=== PATIENT | female | born 1960 | race Caucasian/White ===

== ENCOUNTER 2017-12-29 21:24 | Emergency (ER) | payer MEDICAID ==
[2017-12-29 22:52] VITALS: BP 115/79
--- NOTE | 2017-12-29 23:43 | EDM.PDOC ---
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: Other (see below) Other Treatments INSIDE TRUCKER: Unknown Chest Pain Score (Numeric/FACES): 4 - Related Data Allergies Allergy/AdvReac Type Severity Reaction Status Date / Time erythromycin lactobionate Allergy Severe Anaphylactic Verified 12/29/17 22:52 [From Erythrocin] Shock azithromycin [From Zithromax] Allergy Anaphylactic Verified 12/29/17 22:52 Shock clindamycin Allergy Anaphylactic Verified 12/29/17 22:52 Shock doxycycline Allergy Anaphylactic Verified 12/29/17 22:52 Shock levofloxacin [From Levaquin] Allergy Anaphylactic Verified 12/29/17 22:52 Shock Penicillins Allergy Anaphylactic Verified 12/29/17 22:52 Shock varenicline tartrate Allergy Swelling Verified 12/29/17 22:52 [From Chantix] Home Meds: Home Meds Albuterol [Ventolin HFA] 2 puff INH Q4H PRN 07/01/14 [History] Albuterol/Ipratropium [DuoNeb 3.0-0.5 MG/3 ML] 1 dose INH ASDIRECTED 10/02/14 [ History] Past Medical History Respiratory History: Reports: COPD Psychiatric History: Reports: Emotional Problems, Psych Hospitalization(s) - Past Surgical History Other HEENT Surgeries/Procedures: broken nose Social & Family History - Tobacco Use Smoking Status *Q: Heavy Tobacco Smoker Years of Tobacco use: 38 Packs/Tins Daily: 1 - Recreational Drug Use Recreational Drug Use: No ED ROS GENERAL - Review of Systems Review Of Systems: See Below Constitutional: Denies: Fever, Chills HEENT: Reports: No Symptoms Respiratory: Reports: Shortness of Breath, Cough, Sputum. Denies: Wheezing Cardiovascular: Reports: Dyspnea on Exertion GI/Abdominal: Reports: No Symptoms : Reports: No Symptoms ED EXAM, GENERAL - Physical Exam Exam: See Below Exam Limited By: No Limitations General Appearance: Alert, WD/WN, No Apparent Distress Neck: Normal Inspection, Supple, Non-Tender, Full Range of Motion Respiratory/Chest: No Respiratory Distress, No Accessory Muscle Use, Decreased Breath Sounds. No: Crackles, Wheezing Cardiovascular: Regular Rate, Rhythm, No Murmur Course - Vital Signs Last Recorded V/S: Last Vital Signs Temp 98.1 F 12/29/17 22:47 Pulse 95 12/29/17 22:47 Resp 18 12/29/17 22:47 BP 115/79 12/29/17 22:47 Pulse Ox 96 12/29/17 22:47 Departure - Departure Time of Disposition: 23:42 Disposition: Home, Self-Care 01 Condition: Fair Clinical Impression: Bronchitis COPD (chronic obstructive pulmonary disease) Qualifiers: COPD type: chronic bronchitis Chronic bronchitis type: simple Qualified Code(s) : J41.0 - Simple chronic bronchitis - Discharge Information Referrals: Mariam Mojica PA [Primary Care Provider] - Additional Instructions: Take full course of antibiotics, continue to use your dual nebs as required, take full course of steroids, start the Spiriva recommend trying for 28 days to see if there is any improvement in breathing, follow-up with your primary care in the next 5-7 days for reevaluation - Assessment/Plan Plan: Assessment Acuity = acute Site and laterality = bronchitis complicated in a patient with known history of chronic obstructive pulmonary disease Etiology = probable underlying bacterial cause Manifestations = dyspnea Location of injury = Home Lab values = none Plan I did offer further evaluation with lab work and chest x-ray she declined therefore were disconnected treat empirically doxycycline 100 mg by mouth twice a day 10 days with prednisone 20 mg once a day for 5 days a prescription was also written for Spiriva HandiHaler 2 puffs daily she will follow-up with her primary care in the next 5-7 days for reevaluation This note was dictated using [employer] voice recognition software please call with any questions on syntax or grammar.
== END 2017-12-29 23:54 | disposition home or self-care (01) ==
LOC: JP.ED 21:24
DX: J41.0 Simple chronic bronchitis (principal); F17.210 Nicotine dependence, cigarettes, uncomplicated; Z88.0 Allergy status to penicillin; Z88.8 Allergy status to other drugs, medicaments and biological substances; Z88.1 Allergy status to other antibiotic agents
CPT/HCPCS: 99283

== ENCOUNTER 2018-01-19 18:00 | Emergency (ER) | payer MEDICAID ==
[2018-01-19 18:17] VITALS: BP 124/85
[2018-01-19] MEDS ORDERED: Ketorolac 60 MG/2 ML SDV IM ONE (18:27)
[2018-01-19] MEDS ORDERED: HYDROmorphone 0.5 MG/0.5 ML Syringe IM ONE (19:08)
--- NOTE | 2018-01-19 20:02 | EDM.PDOC ---
ED HPI GENERAL MEDICAL PROBLEM - General Chief Complaint: Lower Extremity Injury/Pain Stated Complaint: BREAKING UP DOG FIGHT, NOW HAVING HIP PAIN Time Seen by Provider: 01/19/18 18:20 Source of Information: Reports: Patient History Limitations: Reports: No Limitations - History of Present Illness INITIAL COMMENTS - FREE TEXT/NARRATIVE: pt arrived with pain in the rt buttock area and down the back of the butt and into the groin. She was trying to break up a dog fight and she suddenly felt pain in the rt buttock area and going down the back of the rt buttock. Onset: Today Duration: Hour(s): Location: Reports: Back, Pelvis, Lower Extremity, Right Associated Symptoms: Reports: No Other Symptoms Right Hip Pain Score (Numeric/FACES): 6 - Related Data Allergies Allergy/AdvReac Type Severity Reaction Status Date / Time erythromycin lactobionate Allergy Severe Anaphylactic Verified 12/29/17 22:52 [From Erythrocin] Shock azithromycin [From Zithromax] Allergy Anaphylactic Verified 12/29/17 22:52 Shock clindamycin Allergy Anaphylactic Verified 12/29/17 22:52 Shock doxycycline Allergy Anaphylactic Verified 12/29/17 22:52 Shock levofloxacin [From Levaquin] Allergy Anaphylactic Verified 12/29/17 22:52 Shock Penicillins Allergy Anaphylactic Verified 12/29/17 22:52 Shock varenicline tartrate Allergy Swelling Verified 12/29/17 22:52 [From Chantix] Home Meds: Home Meds Albuterol [Ventolin HFA] 2 puff INH Q4H PRN 07/01/14 [History] Albuterol/Ipratropium [DuoNeb 3.0-0.5 MG/3 ML] 1 dose INH ASDIRECTED 10/02/14 [ History] Past Medical History Respiratory History: Reports: COPD, Pneumonia, Recurrent Psychiatric History: Reports: Emotional Problems, Psych Hospitalization(s) - Infectious Disease History Infectious Disease History: Reports: Chicken Pox, Measles, Mumps - Past Surgical History Other HEENT Surgeries/Procedures: broken nose Musculoskeletal Surgical History: Reports: Arthroscopic Knee Social & Family History - Tobacco Use Smoking Status *Q: Current Every Day Smoker Years of Tobacco use: 40 Packs/Tins Daily: 1 - Caffeine Use Caffeine Use: Reports: Soda, Tea - Recreational Drug Use Recreational Drug Use: No Review of Systems - Review of Systems Review Of Systems: See Below Constitutional: Reports: No Symptoms Eyes: Reports: No Symptoms Ears: Reports: No Symptoms Nose: Reports: No Symptoms Mouth/Throat: Reports: No Symptoms Respiratory: Reports: No Symptoms Cardiovascular: Reports: No Symptoms GI/Abdominal: Reports: No Symptoms Genitourinary: Reports: No Symptoms Musculoskeletal: Reports: Other ( pain over the rt buttock and pain in the rt groin area. ) Skin: Reports: No Symptoms, Other (pt has diog bites all over her arms particularly the left. ) Neurological: Reports: No Symptoms ED EXAM, GENERAL - Physical Exam Exam: See Below Free Text/Narrative:: Pt arrived with pain in the rt buttock area and pain going down the back of the leg. She also has pain in the rt groin. Exam Limited By: No Limitations General Appearance: Alert, Anxious, Moderate Distress Ears: Normal TMs Nose: Normal Inspection Throat/Mouth: Normal Inspection Head: Atraumatic Neck: Normal Inspection Respiratory/Chest: No Respiratory Distress Cardiovascular: Regular Rate, Rhythm GI/Abdominal: Soft, Non-Tender (Female) Exam: Deferred Rectal (Female) Exam: Deferred Back Exam: Other (pain over the rt buttock area and pain going down the back of the leg. ) Neurological: Alert, Oriented, Normal Cognition Course - Vital Signs Last Recorded V/S: Last Vital Signs Temp 35.2 C 01/19/18 18:16 Pulse 112 H 01/19/18 18:16 Resp 18 01/19/18 18:16 BP 124/85 01/19/18 18:16 Pulse Ox 98 01/19/18 18:16 - Orders/Labs/Meds Orders: Active Orders 24 hr Category Date Time Status Hip Min 1V w Pelvis Rt [CR] Stat Exams 01/19/18 18:29 Taken Lumbar Spine Min 4V [CR] Stat Exams 01/19/18 18:28 Taken Cephalexin [Keflex] Med 01/19/18 20:05 Once 500 mg PO ONETIME ONE Meds: Medications Discontinued Medications Generic Name Dose Route Start Last Admin Trade Name Freq PRN Reason Stop Dose Admin Cephalexin 500 mg 01/19/18 20:05 Keflex PO 01/19/18 20:06 ONETIME ONE Hydromorphone HCl 0.5 mg 01/19/18 19:08 07/12/18 19:18 Dilaudid IM 01/19/18 19:09 0.5 mg ONETIME ONE Administration Ketorolac Tromethamine 60 mg 01/19/18 18:27 01/19/18 18:53 Toradol IM 01/19/18 18:28 60 mg ONETIME ONE Administration - Re-Assessments/Exams Free Text/Narrative Re-Assessment/Exam: 01/19/18 20:14 Xrays of the lumbar spine show narrowing at l5-s1. She appears to have sciatic like pain. She had a normal pelvis. She was fgiven torodol 60mg im and dilaudid .5 im Departure - Departure Time of Disposition: 19:59 Disposition: Home, Self-Care 01 Condition: Fair Clinical Impression: Sciatic nerve pain, Rt groin pain - Discharge Information Referrals: Mariam Mojica PA [Primary Care Provider] - Forms: ED Department Discharge Care Plan Goals: ice to rt groin and rt buttock, use a walker if need to ambulate., norco 5/325- - free for tonight a perscprtion to fill tomorrow for norco and keflex. - My Orders Last 24 Hours: My Active Orders 01/19/18 18:28 Lumbar Spine Min 4V [CR] Stat 01/19/18 18:29 Hip Min 1V w Pelvis Rt [CR] Stat 01/19/18 20:05 Cephalexin [Keflex] 500 mg PO ONETIME ONE - Assessment/Plan Last 24 Hours: My Active Orders 01/19/18 18:28 Lumbar Spine Min 4V [CR] Stat 01/19/18 18:29 Hip Min 1V w Pelvis Rt [CR] Stat 01/19/18 20:05 Cephalexin [Keflex] 500 mg PO ONETIME ONE
[2018-01-19] MEDS ORDERED: Cephalexin 250 MG Cap PO ONE (20:05)
--- NOTE | 2018-01-20 08:37 | CR ---
Lumbar Spine Min 4V CLINICAL HISTORY: Right groin pain FINDINGS: The vertebral body heights are maintained. There is disc space narrowing at L5-S1. There is a minimal anterolisthesis of L5 on S1. There is some facet disease in the lower lumbar spine. IMPRESSION: Degenerative disc changes at L5-S1 with some minimal L5 anterolisthesis Osteoarthropathy in the lower lumbar facets
--- NOTE | 2018-01-20 08:40 | CR ---
Hip Min 1V w Pelvis Rt CLINICAL HISTORY: Right groin pain FINDINGS: No acute fracture or dislocation is noted. No destructive changes are present. The joint sp aces are well-maintained. Impression: No fracture or osseous lesion
== END 2018-01-19 20:27 | disposition home or self-care (01) ==
LOC: JP.ED 18:00
DX: M54.31 Sciatica, right side (principal); J44.9 Chronic obstructive pulmonary disease, unspecified; F17.210 Nicotine dependence, cigarettes, uncomplicated; Z88.1 Allergy status to other antibiotic agents; Z88.0 Allergy status to penicillin; Z88.8 Allergy status to other drugs, medicaments and biological substances
CPT/HCPCS: 72110; 73501; 96372; 99284; A9270; J1170; J1885

== ENCOUNTER 2018-01-24 13:28 | Emergency (ER) | payer MEDICAID ==
[2018-01-24 14:32] VITALS: BP 133/80
--- NOTE | 2018-01-24 15:33 | EDM.PDOC ---
ED HPI GENERAL MEDICAL PROBLEM - General Chief Complaint: Lower Extremity Injury/Pain Stated Complaint: RT SIDE HIP/LEG PAIN (SCIATIC?) Time Seen by Provider: 01/24/18 15:10 Source of Information: Reports: Patient, Old Records, RN History Limitations: Reports: No Limitations - History of Present Illness INITIAL COMMENTS - FREE TEXT/NARRATIVE: 57 yo female presents with groin pain that began last week when she tried to split up her dogs that were fighting. Was seen after that incident here by Dr. Burgos. Was given hydrocodone that did not help her pain but caused nausea. No relief with ibuprofen. Has a walker/crutches at home. 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 below) (none) Right Groin Pain Score (Numeric/FACES): 10 - Related Data Allergies Allergy/AdvReac Type Severity Reaction Status Date / Time erythromycin lactobionate Allergy Severe Anaphylactic Verified 01/24/18 14:42 [From Erythrocin] Shock azithromycin [From Zithromax] Allergy Anaphylactic Verified 01/24/18 14:42 Shock clindamycin Allergy Anaphylactic Verified 01/24/18 14:42 Shock doxycycline Allergy Anaphylactic Verified 01/24/18 14:42 Shock levofloxacin [From Levaquin] Allergy Anaphylactic Verified 01/24/18 14:42 Shock Penicillins Allergy Anaphylactic Verified 01/24/18 14:42 Shock varenicline tartrate Allergy Swelling Verified 01/24/18 14:42 [From Chantix] Home Meds: Home Meds Albuterol [Ventolin HFA] 2 puff INH Q4H PRN 07/01/14 [History] Albuterol/Ipratropium [DuoNeb 3.0-0.5 MG/3 ML] 1 dose INH ASDIRECTED 10/02/14 [ History] traMADol [Ultram] 50 - 100 mg PO Q6H PRN #20 tab 01/24/18 [Rx] Past Medical History Respiratory History: Reports: COPD, Pneumonia, Recurrent Psychiatric History: Reports: Emotional Problems, Psych Hospitalization(s) - Infectious Disease History Infectious Disease History: Reports: Chicken Pox, Measles, Mumps - Past Surgical History Other HEENT Surgeries/Procedures: broken nose Musculoskeletal Surgical History: Reports: Arthroscopic Knee Social & Family History - Tobacco Use Smoking Status *Q: Current Every Day Smoker Years of Tobacco use: 40 Packs/Tins Daily: 1 - Caffeine Use Caffeine Use: Reports: Coffee, Soda - Recreational Drug Use Recreational Drug Use: No Review of Systems - Review of Systems Review Of Systems: See Below Constitutional: Reports: No Symptoms Musculoskeletal: Reports: Leg Pain (R groin) Skin: Reports: No Symptoms Neurological: Reports: No Symptoms ED EXAM, GENERAL - Physical Exam Exam: See Below Exam Limited By: No Limitations General Appearance: Alert, WD/WN, No Apparent Distress Extremities: Normal Inspection, No Pedal Edema, Leg Pain (ischial tuberosity pain). No: Non-Tender Neurological: Alert, Oriented, CN II-XII Intact, Normal Cognition, No Motor/ Sensory Deficits Psychiatric: Normal Affect, Normal Mood Skin Exam: Warm, Dry, Intact, Normal Color, No Rash Lymphatic: No Adenopathy Course - Vital Signs Last Recorded V/S: Last Vital Signs Temp 36.3 C 01/24/18 14:37 Pulse 91 01/24/18 14:37 Resp 14 01/24/18 14:37 BP 133/80 01/24/18 14:37 Pulse Ox 96 01/24/18 14:37 - Orders/Labs/Meds Orders: Active Orders 24 hr Category Date Time Status Pelvis Min 3V [CR] Stat Exams 01/24/18 14:56 Taken - Radiology Interpretation Free Text/Narrative:: pelvix x-ray-neg Departure - Departure Time of Disposition: 15:31 Disposition: Home, Self-Care 01 Condition: Good Clinical Impression: Groin strain Qualifiers: Encounter type: subsequent encounter Laterality: right Qualified Code(s): S76.211D - Strain of adductor muscle, fascia and tendon of right thigh, subsequent encounter - Discharge Information *PRESCRIPTION DRUG MONITORING PROGRAM REVIEWED*: No *COPY OF PRESCRIPTION DRUG MONITORING REPORT IN PATIENT DANIKA: No Prescriptions: traMADol [Ultram] 50 - 100 mg PO Q6H PRN #20 tab PRN Reason: Pain Referrals: Mariam Mojica PA [Primary Care Provider] - Additional Instructions: If acetaminophen AND ibuprofen together do not give enough relief of your pain then add tramadol and use as directed. Activity as tolerated. Consider PT or massage therapy. See your primary care provider for med adjustments. - My Orders Last 24 Hours: My Active Orders 01/24/18 14:56 Pelvis Min 3V [CR] Stat - Assessment/Plan Last 24 Hours: My Active Orders 01/24/18 14:56 Pelvis Min 3V [CR] Stat
--- NOTE | 2018-01-25 08:44 | CR ---
[facility] Clinical History: Groin pain, fall Findings: No acute fracture or dislocation is noted. No destructive changes are present.There is qu estion of minimal widening of the pubic symphysis. This may be chronic. Joint spaces are well-maintai silvana. There are degenerative changes in the lower lumbar spine Impression: No fracture seen
== END 2018-01-24 15:43 | disposition home or self-care (01) ==
LOC: JP.ED 13:28
DX: S76.211D Strain of adductor muscle, fascia and tendon of right thigh, subsequent encounter (principal); Z88.1 Allergy status to other antibiotic agents; Z88.0 Allergy status to penicillin; F17.210 Nicotine dependence, cigarettes, uncomplicated; X58.XXXD Exposure to other specified factors, subsequent encounter
CPT/HCPCS: 72190; 72190-26; 99284

== ENCOUNTER 2019-01-30 00:41 | Emergency (ER) | payer MEDICAID ==
[2019-01-30 00:53] VITALS: BP 120/63
[2019-01-30 01:05] VITALS: PULSE 104
--- NOTE | 2019-01-30 01:43 | EDM.PDOC ---
ED HPI GENERAL MEDICAL PROBLEM - General Chief Complaint: ENT Problem Stated Complaint: TOOTHACHE Time Seen by Provider: 01/30/19 01:20 Source of Information: Reports: Patient, Family, Old Records, RN Notes Reviewed History Limitations: Reports: No Limitations - History of Present Illness INITIAL COMMENTS - FREE TEXT/NARRATIVE: 58-year-old female presents emergency department today complaint of dental pain and facial swelling she states been going on for the last couple days she is not had any fevers at home she would like some antibiotics however she has multiple allergies to every class of medications difficult finding a medication she is not allergic to right lower Pain Score (Numeric/FACES): 8 - Related Data Allergies Allergy/AdvReac Type Severity Reaction Status Date / Time erythromycin lactobionate Allergy Severe Anaphylactic Verified 01/30/19 00:58 [From Erythrocin] Shock amitriptyline Allergy Anaphylactic Verified 01/30/19 00:58 Shock azithromycin [From Zithromax] Allergy Anaphylactic Verified 01/30/19 00:58 Shock clindamycin Allergy Anaphylactic Verified 01/30/19 00:58 Shock doxycycline Allergy Anaphylactic Verified 01/30/19 00:58 Shock levofloxacin [From Levaquin] Allergy Anaphylactic Verified 01/30/19 00:58 Shock Penicillins Allergy Anaphylactic Verified 01/30/19 00:58 Shock prednisone Allergy Anaphylactic Verified 01/30/19 00:58 Shock varenicline tartrate Allergy Swelling Verified 01/30/19 00:58 [From Chantix] Home Meds: Home Meds Albuterol [Ventolin HFA] 2 puff INH Q4H PRN 07/01/14 [History] Albuterol/Ipratropium [DuoNeb 3.0-0.5 MG/3 ML] 1 dose INH QID 10/02/14 [History] Alendronate Sodium [Fosamax] 70 mg PO WEEKLY 01/30/19 [History] Fluticasone/Vilanterol [Breo Ellipta 100-25 MCG Inhalation Kit] 1 each IH DAILY 01/30/19 [History] Gabapentin [Neurontin] 600 mg PO BEDTIME PRN 01/30/19 [History] Tiotropium Benedict [Spiriva Respimat] 2 puff IH DAILY 01/30/19 [History] Past Medical History Respiratory History: Reports: COPD, Pneumonia, Recurrent 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: , Spontaneous Musculoskeletal History: Reports: Fracture, Osteoporosis Neurological History: Reports: Seizure Psychiatric History: Reports: Anxiety, Depression, Emotional Problems, Psych Hospitalization(s) Endocrine/Metabolic History: Reports: Vitamin D Deficiency - Infectious Disease History Infectious Disease History: Reports: Chicken Pox, Measles, Mumps - Past Surgical History HEENT Surgical History: Reports: Naso-Sinus Surgery Other HEENT Surgeries/Procedures: broken nose Musculoskeletal Surgical History: Reports: Arthroscopic Knee Social & Family History - Tobacco Use Smoking Status *Q: Current Every Day Smoker Years of Tobacco use: 40 Packs/Tins Daily: 0.5 - Caffeine Use Caffeine Use: Reports: Soda - Recreational Drug Use Recreational Drug Use: No ED ROS GENERAL - Review of Systems Review Of Systems: See Below Constitutional: Denies: Fever HEENT: Reports: Dental Pain Respiratory: Reports: No Symptoms Cardiovascular: Reports: No Symptoms ED EXAM, GENERAL - Physical Exam Exam: See Below Free Text/Narrative:: Mouth mucosa is moist and pink however there is some edema appreciated on the lower gum dentition is poor multiple dental caries and missing teeth there is some facial swelling as well predominantly right side tender to the touch Exam Limited By: No Limitations General Appearance: Alert, WD/WN, No Apparent Distress Neck: Normal Inspection, Supple, Non-Tender, Full Range of Motion Respiratory/Chest: No Respiratory Distress Course - Vital Signs Last Recorded V/S: Last Vital Signs Temp 95.2 F L 01/30/19 01:04 Pulse 104 H 01/30/19 01:05 Resp 18 01/30/19 01:04 BP 120/63 01/30/19 01:04 Pulse Ox 93 L 01/30/19 01:05 Departure - Departure Time of Disposition: 01:42 Disposition: Home, Self-Care 01 Condition: Poor Clinical Impression: Dental abscess - Discharge Information Referrals: Luci Robles MD [Primary Care Provider] - Additional Instructions: Take full course of antibiotics, use EpiPen if needed, recommend follow-up with cement tester assistant for further evaluation multiple allergies, call return to the emergency department worsening of symptoms - Assessment/Plan Plan: Assessment Acuity = acute Site and laterality = dental abscess Etiology = probable bacterial cause] Manifestations = none Location of injury = Home Lab values = none Plan She is willing to try doxycycline 100 mg by mouth twice a day 7 days prescription also written for an EpiPen recommend she follow-up with an cement tester assistant to review her multiple allergies This note was dictated using [employer] voice recognition software please call with any questions on syntax or grammar.
== END 2019-01-30 01:50 | disposition home or self-care (01) ==
LOC: JP.ED 00:41
DX: K04.7 Periapical abscess without sinus (principal); J44.9 Chronic obstructive pulmonary disease, unspecified; F41.9 Anxiety disorder, unspecified; F32.9 Major depressive disorder, single episode, unspecified; F17.210 Nicotine dependence, cigarettes, uncomplicated; Z88.1 Allergy status to other antibiotic agents; Z88.8 Allergy status to other drugs, medicaments and biological substances; Z88.0 Allergy status to penicillin; Z79.899 Other long term (current) drug therapy
CPT/HCPCS: 99282

== ENCOUNTER 2019-03-29 03:25 | Emergency (ER) | payer MEDICAID ==
[2019-03-29 03:38] VITALS: BP 126/74
[2019-03-29] MEDS ORDERED: LORazepam 0.5 MG Tab PO ONE (04:24)
--- NOTE | 2019-03-29 04:28 | EDM.PDOC ---
ED HPI GENERAL MEDICAL PROBLEM - General Chief Complaint: Respiratory Problem Stated Complaint: PANIC ATTACK/COPD Time Seen by Provider: 03/29/19 04:27 Source of Information: Reports: Patient History Limitations: Reports: No Limitations - History of Present Illness INITIAL COMMENTS - FREE TEXT/NARRATIVE: pt has been going through a very emotional time. She is not connecting with her physian and she is very frighten of even seeking medical help. She has copd and is not on o2. She has times when she gets very sob. Onset: Gradual, Other (pt is very panicy and she did feel like she could not breath right. ) Duration: Hour(s): Location: Reports: Chest, Other (pt is feeling very anxious. ) Associated Symptoms: Reports: Loss of Appetite, Shortness of Breath, Weakness, Other (pt hs lost alot of weight. ) - Related Data Allergies Allergy/AdvReac Type Severity Reaction Status Date / Time erythromycin lactobionate Allergy Severe Anaphylactic Verified 03/29/19 03:42 [From Erythrocin] Shock amitriptyline Allergy Anaphylactic Verified 01/30/19 00:58 Shock azithromycin [From Zithromax] Allergy Anaphylactic Verified 03/29/19 03:42 Shock buspirone [From BuSpar] Allergy Anaphylactic Verified 03/29/19 03:42 Shock clindamycin Allergy Anaphylactic Verified 03/29/19 03:42 Shock doxycycline Allergy Anaphylactic Verified 03/29/19 03:42 Shock levofloxacin [From Levaquin] Allergy Anaphylactic Verified 03/29/19 03:42 Shock Penicillins Allergy Anaphylactic Verified 03/29/19 03:42 Shock prednisone Allergy Anaphylactic Verified 03/29/19 03:42 Shock varenicline tartrate Allergy Swelling Verified 03/29/19 03:42 [From Chantix] Home Meds: Home Meds Albuterol [Ventolin HFA] 2 puff INH Q4H PRN 07/01/14 [History] Albuterol/Ipratropium [DuoNeb 3.0-0.5 MG/3 ML] 1 dose INH QID 10/02/14 [History] Alendronate Sodium [Fosamax] 70 mg PO WEEKLY 01/30/19 [History] Fluticasone/Vilanterol [Breo Ellipta 100-25 MCG Inhalation Kit] 1 each IH DAILY 01/30/19 [History] Gabapentin [Neurontin] 600 mg PO BEDTIME PRN 01/30/19 [History] Tiotropium [place] [Spiriva Respimat] 2 puff IH DAILY 01/30/19 [History] Past Medical History Respiratory History: Reports: COPD, Pneumonia, Recurrent, SOB 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: , 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 Musculoskeletal History: Reports: Fracture, Osteoporosis Neurological History: Reports: Seizure Psychiatric History: Reports: Anxiety, Depression, Emotional Problems, Panic Attack, Psych Hospitalization(s) Endocrine/Metabolic History: Reports: Vitamin D Deficiency - Infectious Disease History Infectious Disease History: Reports: Chicken Pox - Past Surgical History HEENT Surgical History: Reports: Naso-Sinus Surgery Other HEENT Surgeries/Procedures: broken nose Musculoskeletal Surgical History: Reports: Arthroscopic Knee Social & Family History - Tobacco Use Smoking Status *Q: Current Every Day Smoker Years of Tobacco use: 30 Packs/Tins Daily: 0.5 - Caffeine Use Caffeine Use: Reports: None - Recreational Drug Use Recreational Drug Use: No ED ROS GENERAL - Review of Systems Review Of Systems: See Below Constitutional: Reports: No Symptoms HEENT: Reports: No Symptoms Respiratory: Reports: No Symptoms Cardiovascular: Reports: Dyspnea on Exertion Endocrine: Reports: No Symptoms GI/Abdominal: Reports: No Symptoms, Decreased Appetite, Other (wt loss) Musculoskeletal: Reports: Back Pain Skin: Reports: No Symptoms Neurological: Reports: Other (pt is continuously panicy. ) Psychiatric: Reports: Anxiety, Depression ED EXAM, GENERAL - Physical Exam Exam: See Below Free Text/Narrative:: pt is a very anxiou pt who is breathing rapidly , her heart rate was in the 120 range. She has not been able to get any meds to control hr anxiety. Exam Limited By: No Limitations General Appearance: Alert, Anxious, Moderate Distress Ears: Normal TMs Nose: Normal Inspection Throat/Mouth: Normal Inspection Head: Atraumatic Neck: Normal Inspection Respiratory/Chest: Decreased Breath Sounds, Wheezing, Other (her sats were in the 90 range. ) Cardiovascular: Regular Rate, Rhythm, Tachycardia GI/Abdominal: Soft, Non-Tender, Other (pt is very thin and has no tenderness. ) (Female) Exam: Deferred Rectal (Female) Exam: Deferred Back Exam: Normal Inspection Extremities: Normal Inspection Neurological: Alert, Oriented, Normal Cognition Psychiatric: Anxious, Other (panicy) Course - Vital Signs Last Recorded V/S: Last Vital Signs Temp 36.4 C 03/29/19 03:38 Pulse 110 H 03/29/19 05:43 Resp 22 H 03/29/19 05:43 BP 126/74 03/29/19 03:38 Pulse Ox 99 03/29/19 05:43 - Orders/Labs/Meds Labs: Laboratory Tests 03/29/19 03/29/19 03/29/19 Range/Units 04:00 04:23 04:39 WBC 6.8 (4.5-11.0) K/uL RBC 4.56 (3.30-5.50) M/uL Hgb 14.1 (12.0-15.0) g/dL Hct 42.3 (36.0-48.0) % MCV 93 (80-98) fL MCH 31 (27-31) pg MCHC 33 (32-36) % Plt Count 212 (150-400) K/uL Neut % (Auto) 57 (36-66) % Lymph % (Auto) 29 (24-44) % Calvert % (Auto) 12 H (2-6) % Eos % (Auto) 2 (2-4) % Baso % (Auto) 0 (0-1) % Puncture Site ABG pH (7.350-7.450) ABG pCO2 (35.0-42.0) mmHg ABG pO2 (75.0-100.0) mmHg ABG HCO3 (22.0-26.0) mmol/L ABG Total CO2 (21.0-25.0) mmol/L ABG O2 Saturation (95.0-98.0) % ABG O2 Content (15.0-23.0) %vol ABG Base Excess mm/L ABG Hemoglobin (12.0-16.0) g/dL ABG Oxyhemoglobin % ABG Carboxyhemoglobin (0.0-1.6) % ABG Methemoglobin % Henrik Test O2 Delivery Device Oxygen Flow Rate L Sodium 141 (140-148) mmol/L Potassium 3.8 (3.6-5.2) mmol/L Chloride 101 (100-108) mmol/L Carbon Dioxide 33 H (21-32) mmol/L Anion Gap 10.8 (5.0-14.0) mmol/L BUN 5 L (7-18) mg/dL Creatinine 0.7 (0.6-1.0) mg/dL Est Cr Clr Drug Dosing 47.05 mL/min Estimated GFR (MDRD) > 60 (>60) Glucose 108 H (74-106) mg/dL Calcium 8.9 (8.5-10.1) mg/dL Total Bilirubin 0.3 (0.2-1.0) mg/dL AST 18 (15-37) U/L ALT 23 (12-78) U/L Alkaline Phosphatase 78 (46-116) U/L Total Protein 6.9 (6.4-8.2) g/dL Albumin 3.8 (3.4-5.0) g/dL Globulin 3.1 (2.3-3.5) g/dL Albumin/Globulin Ratio 1.2 (1.2-2.2) Urine Color Yellow (YELLOW) Urine Appearance Clear (CLEAR) Urine pH 6.5 (5.0-8.0) Ur Specific H[place]orne 1.015 (1.008-1.030) Urine Protein Negative (NEGATIVE) mg/dL Urine Glucose (UA) Negative (NEGATIVE) mg/dL Urine Ketones Negative (NEGATIVE) mg/dL Urine Occult Blood Trace-intact H (NEGATIVE) Urine Nitrite Negative (NEGATIVE) Urine Bilirubin Negative (NEGATIVE) Urine Urobilinogen 0.2 (0.2-1.0) EU/dL Ur Leukocyte Esterase Small H (NEGATIVE) Urine RBC 5-10 H (0-5) Urine WBC 0-5 (0-5) Ur Epithelial Cells Many Amorphous Sediment Few Urine Bacteria Not seen Urine Mucus Not seen 03/29/19 Range/Units 04:58 WBC (4.5-11.0) K/uL RBC (3.30-5.50) M/uL Hgb (12.0-15.0) g/dL Hct (36.0-48.0) % MCV (80-98) fL MCH (27-31) pg MCHC (32-36) % Plt Count (150-400) K/uL Neut % (Auto) (36-66) % Lymph % (Auto) (24-44) % Calvert % (Auto) (2-6) % Eos % (Auto) (2-4) % Baso % (Auto) (0-1) % Puncture Site Rt radial ABG pH 7.382 (7.350-7.450) ABG pCO2 51.8 H (35.0-42.0) mmHg ABG pO2 79.5 (75.0-100.0) mmHg ABG HCO3 30.1 H (22.0-26.0) mmol/L ABG Total CO2 26.8 H (21.0-25.0) mmol/L ABG O2 Saturation 96.7 (95.0-98.0) % ABG O2 Content 16.7 (15.0-23.0) %vol ABG Base Excess 4.4 mm/L ABG Hemoglobin 13.5 (12.0-16.0) g/dL ABG Oxyhemoglobin 87.9 % ABG Carboxyhemoglobin 8.4 H (0.0-1.6) % ABG Methemoglobin 0.7 % Henrik Test Passed O2 Delivery Device Blow by Oxygen Flow Rate 2 L Sodium (140-148) mmol/L Potassium (3.6-5.2) mmol/L Chloride (100-108) mmol/L Carbon Dioxide (21-32) mmol/L Anion Gap (5.0-14.0) mmol/L BUN (7-18) mg/dL Creatinine (0.6-1.0) mg/dL Est Cr Clr Drug Dosing mL/min Estimated GFR (MDRD) (>60) Glucose (74-106) mg/dL Calcium (8.5-10.1) mg/dL Total Bilirubin (0.2-1.0) mg/dL AST (15-37) U/L ALT (12-78) U/L Alkaline Phosphatase (46-116) U/L Total Protein (6.4-8.2) g/dL Albumin (3.4-5.0) g/dL Globulin (2.3-3.5) g/dL Albumin/Globulin Ratio (1.2-2.2) Urine Color (YELLOW) Urine Appearance (CLEAR) Urine pH (5.0-8.0) Ur Specific H[place]orne (1.008-1.030) Urine Protein (NEGATIVE) mg/dL Urine Glucose (UA) (NEGATIVE) mg/dL Urine Ketones (NEGATIVE) mg/dL Urine Occult Blood (NEGATIVE) Urine Nitrite (NEGATIVE) Urine Bilirubin (NEGATIVE) Urine Urobilinogen (0.2-1.0) EU/dL Ur Leukocyte Esterase (NEGATIVE) Urine RBC (0-5) Urine WBC (0-5) Ur Epithelial Cells Amorphous Sediment Urine Bacteria Urine Mucus Meds: Medications Discontinued Medications Generic Name Dose Route Start Last Admin Trade Name Naveen PRN Reason Stop Dose Admin Lorazepam 0.5 mg 03/29/19 04:24 03/29/19 04:29 Ativan PO 03/29/19 04:25 0.5 mg ONETIME ONE Administration - Re-Assessments/Exams Free Text/Narrative Re-Assessment/Exam: 03/29/19 05:53 pt is struggling with almost continuous anxiety. She was given buspar and she was not able to tolerate that. She is not relating well to hr present physian at [facility]. Pt has severe copd so she gets sob when she is panicy, 03/29/19 05:55 She was given .5 of ativan in Er and she was able to relax and her o2 level was much better. Departure - Departure Time of Disposition: 05:56 Disposition: Home, Self-Care 01 Condition: Fair Clinical Impression: COPD (chronic obstructive pulmonary disease), Panic anxiety syndrome - Discharge Information Instructions: Chronic Obstructive Pulmonary Disease Exacerbation, Panic Attack , Living With Anxiety Referrals: PCP,None [Primary Care Provider] - Forms: ED Department Discharge Care Plan Goals: appt at [facility] with mague Hinkle .5 1 tab bid prn for anxiety # 15, try to cut back on the smoking as much as possible.
[2019-03-29 05:44] VITALS: PULSE 110
--- NOTE | 2019-03-29 05:46 | CRLCR ---
INDICATION: Shortness of breath. COMPARISON: 10/02/2014. FINDINGS/IMPRESSION: Pulmonary hyperexpansion consistent with chronic obstructive pulmonary disease, as before. No focal pulmonary consolidation to suggest acute pneumonia. No pleural effusions. Normal heart size. No acute osseous findings. Dictated by Fredo Nova MD @ 03/29/2019 5:45:33 AM Dictated by: Fredo Nova MD @ 03/29/2019 05:45:59 (Electronically Signed)
== END 2019-03-29 06:15 | disposition home or self-care (01) ==
LOC: JP.ED 03:25
DX: F41.0 Panic disorder [episodic paroxysmal anxiety] (principal); J44.9 Chronic obstructive pulmonary disease, unspecified; F17.210 Nicotine dependence, cigarettes, uncomplicated; Z79.899 Other long term (current) drug therapy; Z88.1 Allergy status to other antibiotic agents; Z88.8 Allergy status to other drugs, medicaments and biological substances; Z88.0 Allergy status to penicillin
CPT/HCPCS: 36415; 36600; 71045; 80053; 81001; 82803; 85025; 99283; A9270

== ENCOUNTER 2019-12-09 22:30 | Inpatient (IN) | payer MEDICAID ==
[2019-12-09] MEDS ORDERED: Sodium Chloride 0.9% 10 ML Syringe FLUSH PRN (23:14)
[2019-12-09] MEDS ORDERED: Lactated Ringers 1,000 ML IV ONE (23:14)
[2019-12-09] MEDS ORDERED: LORazepam 2 MG/ML SDV IVPUSH ONE (23:15)
[2019-12-09] MEDS ORDERED: Albuterol/Ipratropium 4 GM Inhalation Spray INH PRN (23:15)
--- NOTE | 2019-12-09 23:19 | EDM.PDOC ---
ED HPI GENERAL MEDICAL PROBLEM - General Chief Complaint: Respiratory Problem Stated Complaint: DEHYDRATION Time Seen by Provider: 12/09/19 23:16 Source of Information: Reports: Patient, Family, Old Records History Limitations: Reports: No Limitations - History of Present Illness INITIAL COMMENTS - FREE TEXT/NARRATIVE: 59-year-old female presents emergency department today with multiple issues. She does have an extensive psychiatric history as well as severe COPD with oxygen dependency. She was scheduled for a sleep study this evening however was unable to go through the sleep study because of her combination of anxiety and Agoraphobia. She has not been out of the house for several months has not been able to eat because the increasing dyspnea makes her so short of breath she refuses to eat she is currently 34 kg. She states she is very dehydrated and would like to get a port placed and a feeding tube placed while she is here in the emergency department - Related Data Allergies Allergy/AdvReac Type Severity Reaction Status Date / Time erythromycin lactobionate Allergy Severe Anaphylactic Verified 12/10/19 00:32 [From Erythrocin] Shock amitriptyline Allergy Anaphylactic Verified 12/10/19 00:32 Shock azithromycin [From Zithromax] Allergy Anaphylactic Verified 12/10/19 00:32 Shock buspirone [From BuSpar] Allergy Anaphylactic Verified 12/10/19 00:32 Shock clindamycin Allergy Anaphylactic Verified 12/10/19 00:32 Shock levofloxacin [From Levaquin] Allergy Anaphylactic Verified 12/10/19 00:32 Shock Penicillins Allergy Anaphylactic Verified 12/10/19 00:32 Shock prednisone Allergy Anaphylactic Verified 12/10/19 00:32 Shock varenicline Allergy Anaphylactic Verified 12/10/19 00:32 Shock varenicline tartrate Allergy Swelling Verified 12/10/19 00:32 [From Chantix] Home Meds: Home Meds Albuterol [Ventolin HFA] 2 puff INH Q4H PRN 07/01/14 [History] Albuterol/Ipratropium [DuoNeb 3.0-0.5 MG/3 ML] 1 dose INH QID 10/02/14 [History] ALPRAZolam [Alprazolam] 1 tab PO TID PRN 12/09/19 [History] Budesonide [Pulmicort] 0.5 mg IH BID 12/09/19 [History] Doxycycline [Doxycycline Hyclate] 100 mg PO BID PRN 12/09/19 [History] Fluticasone Propion/Salmeterol [Fluticasone-Salmeterol 500-50] 1 dose INH BID [History] PARoxetine [Paxil] 0.5 tab PO DAILY 12/09/19 [History] Revefenacin [Yupelri] 175 mcg IN DAILY 12/09/19 [History] Past Medical History Respiratory History: Reports: COPD, Pneumonia, Recurrent, SOB 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: , 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 Musculoskeletal History: Reports: Fracture, Osteoporosis Neurological History: Reports: Seizure Psychiatric History: Reports: Anxiety, Depression, Emotional Problems, Panic Attack, Psych Hospitalization(s), Other (See Below) (Conversion disorder) Endocrine/Metabolic History: Reports: Vitamin D Deficiency - Infectious Disease History Infectious Disease History: Reports: Chicken Pox - Past Surgical History HEENT Surgical History: Reports: Naso-Sinus Surgery Other HEENT Surgeries/Procedures: broken nose Musculoskeletal Surgical History: Reports: Arthroscopic Knee Social & Family History - Tobacco Use Smoking Status *Q: Former Smoker Years of Tobacco use: 35 Packs/Tins Daily: 1 Used Tobacco, but Quit: Yes Month/Year Tobacco Last Used: october 2019 - Caffeine Use Caffeine Use: Reports: None ED ROS GENERAL - Review of Systems Review Of Systems: See Below Constitutional: Denies: Fever, Chills HEENT: Reports: No Symptoms Respiratory: Reports: Shortness of Breath Cardiovascular: Reports: Dyspnea on Exertion GI/Abdominal: Reports: No Symptoms : Reports: No Symptoms Musculoskeletal: Reports: No Symptoms Skin: Reports: No Symptoms Neurological: Reports: No Symptoms Psychiatric: Reports: Anxiety ED EXAM, GENERAL - Physical Exam Exam: See Below Exam Limited By: No Limitations (11:00 naming) General Appearance: Alert, WD/WN, No Apparent Distress Respiratory/Chest: No Respiratory Distress, Decreased Breath Sounds, Rhonchi, Accessory Muscle Use. No: Crackles, Rales, Wheezing Cardiovascular: Regular Rate, Rhythm, No Murmur Course - Vital Signs Last Recorded V/S: Last Vital Signs Temp 98.6 F 12/09/19 22:53 Pulse 81 12/10/19 06:40 Resp 25 H 12/10/19 06:40 BP 109/55 L 12/10/19 06:40 Pulse Ox 90 L 12/10/19 06:40 - Orders/Labs/Meds Orders: Active Orders 24 hr Category Date Time Status Peripheral IV Care [RC] . DIRECTED Care 12/09/19 23:14 Active RT Post Treatment Assessment [RC] Click to Edit Care 12/09/19 23:16 Active Chest 1V Frontal [CR] Urgent Exams 12/10/19 00:01 Taken Albuterol/Ipratropium [Combivent Respimat] Med 12/09/19 23:15 Active 1 gm INH Q4H PRN Sodium Chloride 0.9% [Saline Flush] Med 12/09/19 23:14 Active 10 ml FLUSH ASDIRECTED PRN Peripheral IV Insertion Adult [OM.PC] Urgent Oth 12/09/19 23:14 Ordered Medication Orders Albuterol/Ipratropium (Combivent Respimat) 1 gm INH Q4H PRN PRN Reason: Dyspnea Sodium Chloride (Saline Flush) 10 ml FLUSH ASDIRECTED PRN PRN Reason: Keep Vein Open Last Admin: 12/09/19 23:34 Dose: 10 ml Labs: Laboratory Tests 12/09/19 12/09/19 12/10/19 Range/Units 23:40 23:40 00:05 WBC 10.9 (4.5-11.0) K/uL RBC 4.09 (3.30-5.50) M/uL Hgb 12.1 D (12.0-15.0) g/dL Hct 42.3 (36.0-48.0) % MCV 103 H (80-98) fL MCH 30 (27-31) pg MCHC 29 L (32-36) % Plt Count 162 (150-400) K/uL Neut % (Auto) 74 H (36-66) % Lymph % (Auto) 17 L (24-44) % Dickenson % (Auto) 8 H (2-6) % Eos % (Auto) 1 L (2-4) % Baso % (Auto) 0 (0-1) % Puncture Site ABG pH (7.350-7.450) ABG pCO2 (35.0-42.0) mmHg ABG pO2 (75.0-100.0) mmHg ABG HCO3 (22.0-26.0) mmol/L ABG Total CO2 (21.0-25.0) mmol/L ABG O2 Saturation (95.0-98.0) % ABG O2 Content (15.0-23.0) %vol ABG Base Excess mm/L ABG Hemoglobin (12.0-16.0) g/dL ABG Oxyhemoglobin % ABG Carboxyhemoglobin (0.0-1.6) % ABG Methemoglobin % Henrik Test O2 Delivery Device Oxygen Flow Rate L Sodium 146 (140-148) mmol/L Potassium 3.8 (3.6-5.2) mmol/L Chloride 99 L (100-108) mmol/L Carbon Dioxide > 45 H (21-32) mmol/L Anion Gap 5.8 (5.0-14.0) mmol/L BUN 17 D (7-18) mg/dL Creatinine 0.5 L (0.6-1.0) mg/dL Est Cr Clr Drug Dosing 65.06 mL/min Estimated GFR (MDRD) > 60 (>60) Glucose 97 (74-106) mg/dL Calcium 9.1 (8.5-10.1) mg/dL Total Bilirubin 0.3 (0.2-1.0) mg/dL AST 20 (15-37) U/L ALT 30 (12-78) U/L Alkaline Phosphatase 71 (46-116) U/L Troponin I 0.037 (0.000-0.056) ng/mL C-Reactive Protein 0.20 (0.0-0.3) mg/dL Total Protein 7.3 (6.4-8.2) g/dL Albumin 3.7 (3.4-5.0) g/dL Globulin 3.6 H (2.3-3.5) g/dL Albumin/Globulin Ratio 1.0 L (1.2-2.2) Procalcitonin ng/mL 12/10/19 12/10/19 Range/Units 00:05 06:05 WBC (4.5-11.0) K/uL RBC (3.30-5.50) M/uL Hgb (12.0-15.0) g/dL Hct (36.0-48.0) % MCV (80-98) fL MCH (27-31) pg MCHC (32-36) % Plt Count (150-400) K/uL Neut % (Auto) (36-66) % Lymph % (Auto) (24-44) % Dickenson % (Auto) (2-6) % Eos % (Auto) (2-4) % Baso % (Auto) (0-1) % Puncture Site Rt brachial ABG pH 7.305 L (7.350-7.450) ABG pCO2 94.8 H* (35.0-42.0) mmHg ABG pO2 52.7 L (75.0-100.0) mmHg ABG HCO3 45.8 H (22.0-26.0) mmol/L ABG Total CO2 42.5 H (21.0-25.0) mmol/L ABG O2 Saturation 87.1 L (95.0-98.0) % ABG O2 Content 14.1 L (15.0-23.0) %vol ABG Base Excess 15.7 mm/L ABG Hemoglobin 12.0 (12.0-16.0) g/dL ABG Oxyhemoglobin 84.1 % ABG Carboxyhemoglobin 2.7 H (0.0-1.6) % ABG Methemoglobin 0.7 % Henrik Test None O2 Delivery Device Nasal cannula Oxygen Flow Rate 2.0 L Sodium (140-148) mmol/L Potassium (3.6-5.2) mmol/L Chloride (100-108) mmol/L Carbon Dioxide (21-32) mmol/L Anion Gap (5.0-14.0) mmol/L BUN (7-18) mg/dL Creatinine (0.6-1.0) mg/dL Est Cr Clr Drug Dosing mL/min Estimated GFR (MDRD) (>60) Glucose (74-106) mg/dL Calcium (8.5-10.1) mg/dL Total Bilirubin (0.2-1.0) mg/dL AST (15-37) U/L ALT (12-78) U/L Alkaline Phosphatase (46-116) U/L Troponin I (0.000-0.056) ng/mL C-Reactive Protein (0.0-0.3) mg/dL Total Protein (6.4-8.2) g/dL Albumin (3.4-5.0) g/dL Globulin (2.3-3.5) g/dL Albumin/Globulin Ratio (1.2-2.2) Procalcitonin < 0.05 ng/mL Meds: Medications Generic Name Dose Route Start Last Admin Trade Name Naveen PRN Reason Stop Dose Admin Albuterol/Ipratropium 1 gm 12/09/19 23:15 Combivent Respimat INH Q4H PRN Dyspnea Sodium Chloride 10 ml 12/09/19 23:14 12/09/19 23:34 Saline Flush FLUSH 10 ml ASDIRECTED PRN Administration Keep Vein Open Discontinued Medications Generic Name Dose Route Start Last Admin Trade Name Naveen PRN Reason Stop Dose Admin Flumazenil 0.2 mg 12/10/19 06:20 12/10/19 06:26 Romazicon IVPUSH 12/10/19 06:21 0.2 mg ONETIME ONE Administration Lactated Ringer's 1,000 mls @ 999 mls/hr 12/09/19 23:14 12/09/19 23:34 Ringers, Lactated IV 12/10/19 00:14 999 mls/hr ASDIRECTED ONE Administration Lorazepam 1 mg 12/09/19 23:15 12/09/19 23:33 Ativan IVPUSH 12/09/19 23:16 1 mg ONETIME ONE Administration - Re-Assessments/Exams Free Text/Narrative Re-Assessment/Exam: Was initially given 1 mg Ativan in the emergency department to help with her anxiety while blood work and chest x-ray were performed she was able to rest comfortably was still arousable however early this morning after all the lab work came back she was difficult to arouse. ABG was performed revealed PCO2 of 94.8 critical value. Elected to try flumazenil she was given 0.2mg immediately after administration she was arousable able to communicate in 2 word sentences she was willing to be admitted to the hospital was willing to try BiPAP respiratory therapy was called for administration of BiPAP 12/10/19 07:10 Departure - Departure Time of Disposition: 07:17 Disposition: Admitted As Inpatient 66 Condition: Critical Clinical Impression: Hypercapnic respiratory failure Qualifiers: Chronicity: acute on chronic Qualified Code(s): J96.22 - Acute and chronic respiratory failure with hypercapnia - Discharge Information Referrals: Dedra Venegas MD [Primary Care Provider] - Forms: ED Department Discharge Sepsis Event Note - Evaluation Sepsis Screening Result: No Definite Risk - Focused Exam Vital Signs: Vital Signs Temp Pulse Resp BP Pulse Ox 12/10/19 06:40 81 25 H 109/55 L 90 L 12/10/19 06:07 72 17 109/55 L 97 12/10/19 04:47 87 20 99 12/10/19 03:01 19 98 12/10/19 01:10 83 20 100 12/09/19 22:53 98.6 F 82 23 H 118/59 L 90 L 12/09/19 22:52 98.6 F 82 23 H 118/59 L 90 L Date Exam was Performed: 12/10/19 Time Exam was Performed: 07:10 - My Orders Last 24 Hours: My Active Orders 12/09/19 23:14 Peripheral IV Care [RC] . DIRECTED Sodium Chloride 0.9% [Saline Flush] 10 ml FLUSH ASDIRECTED PRN Peripheral IV Insertion Adult [OM.PC] Urgent 12/09/19 23:15 Albuterol/Ipratropium [Combivent Respimat] 1 gm INH Q4H PRN 12/09/19 23:16 RT Post Treatment Assessment [RC] Click to Edit 12/10/19 00:01 Chest 1V Frontal [CR] Urgent - Assessment/Plan Last 24 Hours: My Active Orders 12/09/19 23:14 Peripheral IV Care [RC] . DIRECTED Sodium Chloride 0.9% [Saline Flush] 10 ml FLUSH ASDIRECTED PRN Peripheral IV Insertion Adult [OM.PC] Urgent 12/09/19 23:15 Albuterol/Ipratropium [Combivent Respimat] 1 gm INH Q4H PRN 12/09/19 23:16 RT Post Treatment Assessment [RC] Click to Edit 12/10/19 00:01 Chest 1V Frontal [CR] Urgent Plan: Assessment Acuity = acute Site and laterality = hypercapnic respiratory failure complicated in a patient with chronic COPD end-stage with oxygen dependency at home Etiology = unknown Manifestations = somnolent but arousable Location of injury = Home Lab values = CBC unremarkable ABG reveals pH is 7.35 PCO2 94.8 PCO2 of 52.7 and a bicarb of 45.8 primary respiratory acidosis chronic troponin normal range 0.037 CRP 0.2 procalcitonin less than 0.05 CMP also unremarkable chest x-ray shows severe COPD pending read of radiology Plan Call discussed case with hospitalist on-call at [phone] kindly agreed to come evaluate the patient emergency department for admission respiratory therapy was able to initiate BiPAP This note was dictated using [employer] voice recognition software please call with any questions on syntax or grammar.
[2019-12-10] MEDS ORDERED: Flumazenil 0.1 MG/ML 5 ML MDV IVPUSH ONE (06:20)
[2019-12-10] MEDS ORDERED: LORazepam 2 MG/ML SDV IVPUSH ONE (07:21)
[2019-12-10] MEDS ORDERED: Albuterol/Ipratropium 3.0-0.5 MG/3 ML Neb Soln NEB ONE (08:52)
[2019-12-10] MEDS ORDERED: Albuterol/Ipratropium 3.0-0.5 MG/3 ML Neb Soln ONE (08:53)
--- NOTE | 2019-12-10 09:09 | PCM.HP.2 ---
H&P History of Present Illness - General Date of Service: 12/10/19 Admit Problem/Dx: Admission Diagnosis/Problem Admission Diagnosis/Problem Acute exacerbation of chronic obstructive airways disease Source of Information: Provider. No: Patient History Limitations: Reports: Altered Mental Status - History of Present Illness Initial Comments - Free Text/Narative: CC: anxious HPI: Jenny was in the hospital last night for a sleep study. She was able to complete part of the test before significant anxiety caused her to come to the emergency room. She received a dose of lorazepam because of the anxiety and has been very somnolent since then. Blood gases were checked earlier this morning and showed a significant elevation of her PCO2. I was asked to admit her for further management. She is extremely lethargic at this time and unable to provide any history. History was gathered from the emergency room staff. They did note an increase in respiratory rate and anxiety prior to the lorazepam but has been breathing comfortable since the dose so she is very somnolent. I am not sure if this is an acute issue or if this is her baseline worsened by the dose of lorazepam. She has been started on noninvasive ventilation which she has been tolerating well so far. Repeat blood gases unfortunately showed a rise in her PCO2. Both inspiratory and expiratory pressures were increased. She will be admitted to the intensive care unit for further management. - Related Data Allergies/Adverse Reactions: Allergies Allergy/AdvReac Type Severity Reaction Status Date / Time erythromycin lactobionate Allergy Severe Anaphylactic Verified 12/10/19 00:32 [From Erythrocin] Shock amitriptyline Allergy Anaphylactic Verified 12/10/19 00:32 Shock azithromycin [From Zithromax] Allergy Anaphylactic Verified 12/10/19 00:32 Shock buspirone [From BuSpar] Allergy Anaphylactic Verified 12/10/19 00:32 Shock clindamycin Allergy Anaphylactic Verified 12/10/19 00:32 Shock levofloxacin [From Levaquin] Allergy Anaphylactic Verified 12/10/19 00:32 Shock Penicillins Allergy Anaphylactic Verified 12/10/19 00:32 Shock prednisone Allergy Anaphylactic Verified 12/10/19 00:32 Shock varenicline Allergy Anaphylactic Verified 12/10/19 00:32 Shock varenicline tartrate Allergy Swelling Verified 12/10/19 00:32 [From Chantix] Home Medications: Home Meds Albuterol [Ventolin HFA] 2 puff INH Q4H PRN 07/01/14 [History] Albuterol/Ipratropium [DuoNeb 3.0-0.5 MG/3 ML] 1 dose INH QID 10/02/14 [History] ALPRAZolam [Alprazolam] 1 tab PO TID PRN 12/09/19 [History] Budesonide [Pulmicort] 0.5 mg IH BID 12/09/19 [History] Doxycycline [Doxycycline Hyclate] 100 mg PO BID PRN 12/09/19 [History] Fluticasone Propion/Salmeterol [Fluticasone-Salmeterol 500-50] 1 dose INH BID [History] PARoxetine [Paxil] 0.5 tab PO DAILY 12/09/19 [History] Revefenacin [Yupelri] 175 mcg IN DAILY 12/09/19 [History] Past Medical History Respiratory History: Reports: COPD, Pneumonia, Recurrent, SOB Gastrointestinal History: Reports: Other (See Below) Other Gastrointestinal History: underweight [employer] 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: , Spontaneous Musculoskeletal History: Reports: Fracture, Osteoporosis Neurological History: Reports: Seizure Psychiatric History: Reports: Anxiety, Depression, Emotional Problems, Panic Attack, Psych Hospitalization(s), Other (See Below) (Conversion disorder) Other Psychiatric History: conversion disorder Endocrine/Metabolic History: Reports: Vitamin D Deficiency - Infectious Disease History Infectious Disease History: Reports: Chicken Pox - Past Surgical History HEENT Surgical History: Reports: Naso-Sinus Surgery Other HEENT Surgeries/Procedures: broken nose Musculoskeletal Surgical History: Reports: Arthroscopic Knee Social & Family History - Tobacco Use Smoking Status *Q: Former Smoker Years of Tobacco use: 35 Packs/Tins Daily: 1 Used Tobacco, but Quit: Yes Month/Year Tobacco Last Used: october 2019 - Caffeine Use Caffeine Use: Reports: None H&P Review of Systems - Review of Systems: Review Of Systems: Unable To Obtain Reason Not Obtained: obtunded Exam - Exam Exam: See Below - Vital Signs Vital Signs: Last Vital Signs Temp 37.0 C 12/09/19 22:53 Pulse 79 12/10/19 08:51 Resp 12 12/10/19 08:51 BP 103/48 L 12/10/19 08:51 Pulse Ox 90 L 12/10/19 06:40 Weight: 34.019 kg - Exam Quality Assessment: Supplemental Oxygen General: Obtunded. No: Alert, Cooperative HEENT: No: Mucosa Moist & [place] (dry), Scleral Icterus Neck: Supple, Trachea Midline Lungs: Normal Respiratory Effort, Decreased Breath Sounds (diffusely ). No: Rhonchi, Wheezing Cardiovascular: Regular Rate, Regular Rhythm GI/Abdominal Exam: Soft, No Distention Extremities: No Pedal Edema. No: Increased Warmth Skin: Warm, Dry Neuro Extensive - Mental Status: No: Alert, Oriented x3 Neuro Extensive - Motor, Sensory, Reflexes: No: Facial Palsy (R), Facial palsy ( L), Tremor Psychiatric: No: Alert, Agitated - Patient Data Lab Results Last 24 hrs: Laboratory Results - last 24 hr 12/09/19 12/09/19 12/10/19 Range/Units 23:40 23:40 00:05 WBC 10.9 (4.5-11.0) K/uL RBC 4.09 (3.30-5.50) M/uL Hgb 12.1 D (12.0-15.0) g/dL Hct 42.3 (36.0-48.0) % MCV 103 H (80-98) fL MCH 30 (27-31) pg MCHC 29 L (32-36) % Plt Count 162 (150-400) K/uL Neut % (Auto) 74 H (36-66) % Lymph % (Auto) 17 L (24-44) % Dane % (Auto) 8 H (2-6) % Eos % (Auto) 1 L (2-4) % Baso % (Auto) 0 (0-1) % Puncture Site ABG pH (7.350-7.450) ABG pCO2 (35.0-42.0) mmHg ABG pO2 (75.0-100.0) mmHg ABG HCO3 (22.0-26.0) mmol/L ABG Total CO2 (21.0-25.0) mmol/L ABG O2 Saturation (95.0-98.0) % ABG O2 Content (15.0-23.0) %vol ABG Base Excess mm/L ABG Hemoglobin (12.0-16.0) g/dL ABG Oxyhemoglobin % ABG Carboxyhemoglobin (0.0-1.6) % ABG Methemoglobin % Henrik Test O2 Delivery Device Oxygen Flow Rate L Sodium 146 (140-148) mmol/L Potassium 3.8 (3.6-5.2) mmol/L Chloride 99 L (100-108) mmol/L Carbon Dioxide > 45 H (21-32) mmol/L Anion Gap 5.8 (5.0-14.0) mmol/L BUN 17 D (7-18) mg/dL Creatinine 0.5 L (0.6-1.0) mg/dL Est Cr Clr Drug Dosing 65.06 mL/min Estimated GFR (MDRD) > 60 (>60) Glucose 97 (74-106) mg/dL Calcium 9.1 (8.5-10.1) mg/dL Total Bilirubin 0.3 (0.2-1.0) mg/dL AST 20 (15-37) U/L ALT 30 (12-78) U/L Alkaline Phosphatase 71 (46-116) U/L Troponin I 0.037 (0.000-0.056) ng/mL C-Reactive Protein 0.20 (0.0-0.3) mg/dL Total Protein 7.3 (6.4-8.2) g/dL Albumin 3.7 (3.4-5.0) g/dL Globulin 3.6 H (2.3-3.5) g/dL Albumin/Globulin Ratio 1.0 L (1.2-2.2) Procalcitonin ng/mL 12/10/19 12/10/19 12/10/19 Range/Units 00:05 06:05 08:00 WBC (4.5-11.0) K/uL RBC (3.30-5.50) M/uL Hgb (12.0-15.0) g/dL Hct (36.0-48.0) % MCV (80-98) fL MCH (27-31) pg MCHC (32-36) % Plt Count (150-400) K/uL Neut % (Auto) (36-66) % Lymph % (Auto) (24-44) % Dane % (Auto) (2-6) % Eos % (Auto) (2-4) % Baso % (Auto) (0-1) % Puncture Site Rt brachial Rt radial ABG pH 7.305 L 7.231 L (7.350-7.450) ABG pCO2 94.8 H* 117.0 H* (35.0-42.0) mmHg ABG pO2 52.7 L 68.1 L (75.0-100.0) mmHg ABG HCO3 45.8 H 47.4 H (22.0-26.0) mmol/L ABG Total CO2 42.5 H 44.7 H (21.0-25.0) mmol/L ABG O2 Saturation 87.1 L 91.8 L (95.0-98.0) % ABG O2 Content 14.1 L 15.1 (15.0-23.0) %vol ABG Base Excess 15.7 15.5 mm/L ABG Hemoglobin 12.0 12.0 (12.0-16.0) g/dL ABG Oxyhemoglobin 84.1 89.6 % ABG Carboxyhemoglobin 2.7 H 1.6 (0.0-1.6) % ABG Methemoglobin 0.7 0.8 % Henrik Test None Passed O2 Delivery Device Nasal cannula Bipap Oxygen Flow Rate 2.0 L Sodium (140-148) mmol/L Potassium (3.6-5.2) mmol/L Chloride (100-108) mmol/L Carbon Dioxide (21-32) mmol/L Anion Gap (5.0-14.0) mmol/L BUN (7-18) mg/dL Creatinine (0.6-1.0) mg/dL Est Cr Clr Drug Dosing mL/min Estimated GFR (MDRD) (>60) Glucose (74-106) mg/dL Calcium (8.5-10.1) mg/dL Total Bilirubin (0.2-1.0) mg/dL AST (15-37) U/L ALT (12-78) U/L Alkaline Phosphatase (46-116) U/L Troponin I (0.000-0.056) ng/mL C-Reactive Protein (0.0-0.3) mg/dL Total Protein (6.4-8.2) g/dL Albumin (3.4-5.0) g/dL Globulin (2.3-3.5) g/dL Albumin/Globulin Ratio (1.2-2.2) Procalcitonin < 0.05 ng/mL Result Diagrams: 12/09/19 23:40 12/09/19 23:40 Imaging Impressions Last 24 hrs: CXR-image personally reviewed-lungs are hyperinflated but otherwise clear with no mass, infiltrate or effusion. Heart size is normal. Sepsis Event Note - Evaluation Sepsis Screening Result: No Definite Risk - Focused Exam Vital Signs: Vital Signs Temp Pulse Resp BP Pulse Ox 12/10/19 08:51 79 12 103/48 L 12/10/19 06:40 81 25 H 109/55 L 90 L 12/10/19 06:07 72 17 109/55 L 97 12/10/19 04:47 87 20 99 12/10/19 03:01 19 98 12/10/19 01:10 83 20 100 12/09/19 22:53 37.0 C 82 23 H 118/59 L 90 L 12/09/19 22:52 37.0 C 82 23 H 118/59 L 90 L Date Exam was Performed: 12/10/19 Time Exam was Performed: 15:47 *Q Meaningful Use (ADM) - VTE Risk Assess *Q Each Risk Factor Represents 1 Point: Age 41 - 59 years, Abnormal Pulmonary Function (COPD) Total Score 1 Point Risk Factors: 2 Each Risk Factor Represents 2 Points: None Total Score 2 Point Risk Factors: 0 Each Risk Factor Represents 3 Points: None Total Score 3 Point Risk Factors: 0 Each Risk Factor Represents 5 Points: None Total Score 5 Point Risk Factors: 0 Venous Thromboembolism Risk Factor Score *Q: 2 - Problem List (1) COPD (chronic obstructive pulmonary disease) SNOMED Code(s): 30648709 ICD Code: J44.9 - CHRONIC OBSTRUCTIVE PULMONARY DISEASE, UNSPECIFIED Status : Acute Current Visit: No Qualifiers: COPD type: emphysema Emphysema type: unspecified Qualified Code(s): J43.9 - Emphysema, unspecified (2) Acute respiratory failure with hypoxia and hypercapnia SNOMED Code(s): 474573860 ICD Code: J96.01 - ACUTE RESPIRATORY FAILURE WITH HYPOXIA; J96.02 - ACUTE RESPIRATORY FAILURE WITH HYPERCAPNIA Status: Acute Current Visit: Yes (3) Generalized anxiety disorder with panic attacks SNOMED Code(s): 96351500 ICD Code: F41.1 - GENERALIZED ANXIETY DISORDER; F41.0 - PANIC DISORDER [ EPISODIC PAROXYSMAL ANXIETY] Status: Chronic Current Visit: Yes Problem List Initiated/Reviewed/Updated: Yes Orders Last 24hrs: Active Orders 24 hr Category Date Time Status Patient Status Manage Transfer [TRANSFER] Routine ADT 12/10/19 08:57 Ordered Peripheral IV Care [RC] . DIRECTED Care 12/09/19 23:14 Active RT Aerosol Therapy [RC] ASDIRECTED Care 12/10/19 08:52 Active RT Post Treatment Assessment [RC] Click to Edit Care 12/09/19 23:16 Active Chest 1V Frontal [CR] Urgent Exams 12/10/19 00:01 Taken D Dimer [D-DIMER QUANTITATIVE] [COAG] Stat Lab 12/10/19 08:54 Ordered Sodium Chloride 0.9% [Saline Flush] Med 12/09/19 23:14 Active 10 ml FLUSH ASDIRECTED PRN Peripheral IV Insertion Adult [OM.PC] Urgent Oth 12/09/19 23:14 Ordered Resuscitation Status Routine Resus Stat 12/10/19 08:58 Ordered Medication Orders Sodium Chloride (Saline Flush) 10 ml FLUSH ASDIRECTED PRN PRN Reason: Keep Vein Open Last Admin: 12/09/19 23:34 Dose: 10 ml Assessment/Plan Comment:: ASSESSMENT AND PLAN - Severe COPD with acute respiratory failure with hypoxia and hypercapnia-no evidence for bacterial infection based on chest x-ray, CRP and procalcitonin level. There may be an environmental component to a COPD exacerbation though she is not actively wheezing. D-dimer was negative. Troponin normal. May be a medication side effect from the lorazepam. She has a significant elevation of her PCO2 which did rise after the noninvasive ventilation was started. She is oxygen dependent at home. -Repeat blood gases later in the day -Continue noninvasive ventilation until she is more alert and interactive -Gentle management of anxiety once she is more alert and interactive -Scheduled and as needed nebulizers Generalized anxiety with Agoraphobia-significant disability because of her anxiety. Currently sedated and lethargic. -Hold off on additional management until she is more alert and interactive Maintenance issues - - DVT prophylaxis -mechanical - GI prophylaxis -not indicated - Nutrition -n.p.o. until she is more alert - Lee catheter -not indicated CODE STATUS -unknown at this time, presumed to be full code Admission justification -this patient will be admitted for inpatient services and is medically appropriate meeting medical necessity for inpatient admission as outlined in my documentation. I reasonably expect the patient will require inpatient services that span a period time over 2 midnights. I reasonably expect this patient to be discharged or transferred within 96 hours after admission to the [facility]. Disposition -I would anticipate discharge home after the hospital stay Primary care physician -Dr. Dedra Masters M.D. - Mortality Measure Prognosis:: Poor
[2019-12-10] MEDS ORDERED: Ondansetron 4 MG Tab.DIS PO PRN (09:15)
[2019-12-10] MEDS ORDERED: Budesonide 0.5 MG/2 ML Neb Susp INH SCH (09:15)
[2019-12-10] MEDS ORDERED: Acetaminophen 325 MG Tab PO PRN (09:15)
[2019-12-10] MEDS ORDERED: Ondansetron 4 MG/2 ML SDV IV PRN (09:15)
[2019-12-10] MEDS ORDERED: Albuterol 0.083% 2.5 MG/3 ML Neb Soln NEB PRN (09:15)
[2019-12-10] MEDS ORDERED: Magnesium Hydroxide 400 MG/5 ML Susp 30 ML Cup PO PRN (09:15)
[2019-12-10] MEDS ORDERED: LORazepam 2 MG/ML SDV IVPUSH PRN (09:15)
--- NOTE | 2019-12-10 09:36 | CR ---
CHEST: Portable 12/10/2019 at 12:33 AM CLINICAL HISTORY:SOB COMPARISON:2019 FINDINGS: Heart size and pulmonary vascularity are normal. Lungs are hyperaerated. No infiltrates are seen. Patient has a wall thoracic dextroscoliosis. Patient appears cachectic Impression: Emphysematous changes No acute cardiopulmonary process
[2019-12-10] MEDS ORDERED: Albuterol/Ipratropium 3.0-0.5 MG/3 ML Neb Soln NEB SCH (10:00)
[2019-12-10] MEDS ORDERED: LORazepam 0.5 MG Tab PO PRN (14:35)
[2019-12-10] MEDS: Albuterol/Ipratropium 3.0-0.5 MG/3 ML Neb Soln NEB SCH ×2 (14:37→21:43)
[2019-12-10] MEDS ORDERED: Sodium Chloride 0.9% 500 ML IV ONE (14:45)
[2019-12-10] MEDS ORDERED: Melatonin 3 MG Tab PO SCH (21:00)
[2019-12-10] MEDS: Budesonide 0.5 MG/2 ML Neb Susp INH SCH (21:43)
[2019-12-11] MEDS: Albuterol/Ipratropium 3.0-0.5 MG/3 ML Neb Soln NEB SCH ×2 (07:17→10:33)
[2019-12-11] MEDS: Budesonide 0.5 MG/2 ML Neb Susp INH SCH (07:17)
[2019-12-11 07:18] VITALS: PULSE 77
--- NOTE | 2019-12-11 09:57 | PCM.DCSUM1 ---
Discharge Summary - Hospital Course Brief History: 59-year-old female with history of severe oxygen dependent COPD with emphysema who presented from a sleep study with severe anxiety. She was admitted to the hospital for acute on chronic respiratory failure with hypoxia and hypercapnia. Diagnosis: Stroke: No - Discharge Data Discharge Date: 12/11/19 Discharge Disposition: Home, Self-Care 01 Condition: Fair - Referral to Home Health Primary Care Physician: Dedra Venegas MD - Discharge Diagnosis/Problem(s) (1) COPD (chronic obstructive pulmonary disease) SNOMED Code(s): 13005988 ICD Code: J44.9 - CHRONIC OBSTRUCTIVE PULMONARY DISEASE, UNSPECIFIED Status : Chronic Qualifiers: COPD type: emphysema Emphysema type: unspecified Qualified Code(s): J43.9 - Emphysema, unspecified (2) Acute respiratory failure with hypoxia and hypercapnia SNOMED Code(s): 571851303 ICD Code: J96.01 - ACUTE RESPIRATORY FAILURE WITH HYPOXIA; J96.02 - ACUTE RESPIRATORY FAILURE WITH HYPERCAPNIA Status: Acute (3) Generalized anxiety disorder with panic attacks SNOMED Code(s): 99099740 ICD Code: F41.1 - GENERALIZED ANXIETY DISORDER; F41.0 - PANIC DISORDER [ EPISODIC PAROXYSMAL ANXIETY] Status: Chronic - Patient Summary/Data Hospital Course: Jenny was admitted to the hospital following an episode of significant anxiety that occurred 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 She was evaluated in the emergency room. She received a dose of lorazepam to help with her anxiety. Laboratory studies were unremarkable. CRP and procalcitonin were very low. Chest x-ray was clear. She did sleep for a while after the dose of lorazepam. On several hours later she was still sleeping and had a lower respiratory rate. Some blood gases were checked at this point and showed a pH of 7.3 with a PCO2 in the 90s. She was started on noninvasive ventilation and blood gases were rechecked a short while later but she had a further rise in her PCO2. The decision was made to admit to the intensive care unit for ongoing noninvasive ventilation. I suspect that she was overly sedated from the antianxiety medication and then retained CO2. At baseline she has fairly severe oxygen dependent COPD with emphysema. She did slowly come around after admission to the intensive care unit. She tolerated the noninvasive ventilation for several hours. After that she became more awake and alert and we were able to stop the noninvasive ventilation. She has been stable with just a nasal cannula to supplement her oxygen since that time. She has no active wheezing. We had several discussions about her anxiety. She had been on peroxide teen but did not tolerate this because she thought it made her anxiety worse. She does get some benefit from her alprazolam but usually requires 2 tablets to calm down the anxiety. She did have 1 dose of oral lorazepam in the afternoon after admission and this did seem to help with her anxiety some. She is concerned about her low weight at this point and we did talk about doing her best to try to eat high calorie foods. She is wondering if a feeding tube might be helpful. She is also wondering about the utility of a lung transplant. She had been seeing a home care consultant but they are no longer available. She is doing much better today and I suspect that her PCO2 is much better today as she is awake and alert though we did not recheck blood gases on the morning of discharge. Vital signs including oxygenation have been stable. For her anxiety we did start a low-dose of citalopram which hopefully can be titrated. She is interested in seeing a home care consultant but referral will be deferred to her outpatient visit. She will be following up with her primary care in the near future. She will continue her home medications but we will be getting rid of the paroxetine and started the citalopram. - Patient Instructions Diet: Regular Diet as Tolerated Activity: As Tolerated Showering/Bathing: May Shower Notify Provider of: Fever, Increased Pain Other/Special Instructions: 1. You were in the hospital for management of elevated carbon dioxide in your blood caused by inefficient respiration. There was no evidence for infection. Your condition has been improving with short- term use of noninvasive ventilation. No medication changes are necessary at this time for management of your COPD. We have made some changes with your anxiety medications as discussed below. 2. Start taking citalopram (Celexa) 10 mg once daily. This medication will help to calm down your anxiety. If you have episodes of increased anxiety during the course of the day you may utilize the alprazolam (Xanax) as previously prescribed by Dr. Venegas. 3. Follow up with Dr Venegas - discuss a referral to see a new home care consultant. You could consider seeing 1 of the providers at the [facility] in [place], [place] or Dr Jarrell in [place], [place]. - Discharge Plan *PRESCRIPTION DRUG MONITORING PROGRAM REVIEWED*: Not Applicable *COPY OF PRESCRIPTION DRUG MONITORING REPORT IN PATIENT DANIKA: Not Applicable Prescriptions/Med Rec: Citalopram [Citalopram HBr] 10 mg PO DAILY #30 tab Home Medications: Home Meds Albuterol [Ventolin HFA] 2 puff INH Q4H PRN 07/01/14 [History] Albuterol/Ipratropium [DuoNeb 3.0-0.5 MG/3 ML] 1 dose INH QID 10/02/14 [History] ALPRAZolam [Alprazolam] 1 tab PO TID PRN 12/09/19 [History] Budesonide [Pulmicort] 0.5 mg IH BID 12/09/19 [History] Doxycycline [Vibramycin] 100 mg PO BID PRN 12/09/19 [History] Fluticasone Propion/Salmeterol [Fluticasone-Salmeterol 500-50] 1 dose INH BID [History] Revefenacin [Yupelri] 175 mcg IN DAILY 12/09/19 [History] Citalopram [Citalopram HBr] 10 mg PO DAILY #30 tab 12/11/19 [Rx] Oxygen Therapy Mode: Nasal Cannula Patient Handouts: Citalopram tablets, Chronic Obstructive Pulmonary Disease Referrals: Dedra Venegas MD [Primary Care Provider] - 12/14/19 1:30 pm (3-5 days - follow up hospital stay for COPD and anxiety ) - Discharge Summary/Plan Comment DC Time >30 min.: No - Patient Data Vitals - Most Recent: Last Vital Signs Temp 36.8 C 12/11/19 08:00 Pulse 77 12/11/19 07:17 Resp 28 H 12/11/19 08:00 BP 101/52 L 12/11/19 08:00 Pulse Ox 98 12/11/19 08:00 Weight - Most Recent: 34.019 kg I&O - Last 24 hours: Intake & Output 12/10/19 12/11/19 12/11/19 22:59 06:59 14:59 Intake Total 500 240 Output Total 450 200 Balance 500 -210 -200 Lab Results - Last 24 hrs: Laboratory Results - last 24 hr 0612/10/19 12/10/19 Range/Units 09:09 09:09 12:00 WBC (4.5-11.0) K/uL RBC (3.30-5.50) M/uL Hgb (12.0-15.0) g/dL Hct (36.0-48.0) % MCV (80-98) fL MCH (27-31) pg MCHC (32-36) % Plt Count (150-400) K/uL Puncture Site Rt brachial ABG pH 7.345 L (7.350-7.450) ABG pCO2 86.6 H* (35.0-42.0) mmHg ABG pO2 73.0 L (75.0-100.0) mmHg ABG HCO3 46.0 H (22.0-26.0) mmol/L ABG Total CO2 42.5 H (21.0-25.0) mmol/L ABG O2 Saturation 95.2 (95.0-98.0) % ABG O2 Content 14.8 L (15.0-23.0) %vol ABG Base Excess 16.9 mm/L ABG Hemoglobin 11.4 L (12.0-16.0) g/dL ABG Oxyhemoglobin 92.4 % ABG Carboxyhemoglobin 2.0 H (0.0-1.6) % ABG Methemoglobin 0.9 % Henrik Test None O2 Delivery Device Bipap Oxygen Flow Rate L Sodium (140-148) mmol/L Potassium (3.6-5.2) mmol/L Chloride (100-108) mmol/L Carbon Dioxide (21-32) mmol/L Anion Gap (5.0-14.0) mmol/L BUN (7-18) mg/dL Creatinine (0.6-1.0) mg/dL Est Cr Clr Drug Dosing mL/min Estimated GFR (MDRD) (>60) Glucose (74-106) mg/dL Calcium (8.5-10.1) mg/dL Urine Color Yellow (YELLOW) Urine Appearance Clear (CLEAR) Urine pH 5.5 (5.0-8.0) Ur Specific [place] 1.030 (1.008-1.030) Urine Protein 30 H (NEGATIVE) mg/dL Urine Glucose (UA) Negative (NEGATIVE) mg/dL Urine Ketones Negative (NEGATIVE) mg/dL Urine Occult Blood Trace-intact H (NEGATIVE) Urine Nitrite Negative (NEGATIVE) Urine Bilirubin Negative (NEGATIVE) Urine Urobilinogen 0.2 (0.2-1.0) EU/dL Ur Leukocyte Esterase Small (NEGATIVE) Urine RBC 0-5 (0-5) Urine WBC 5-10 H (0-5) Ur Epithelial Cells Moderate Amorphous Sediment Not seen Urine Bacteria Few Urine Mucus Many Urine Opiates Screen Negative (NEGATIVE) Ur Oxycodone Screen Negative (NEGATIVE) Urine Methadone Screen Negative (NEGATIVE) Ur Propoxyphene Screen Negative (NEGATIVE) Ur Barbiturates Screen Negative (NEGATIVE) Ur Tricyclics Screen Negative (NEGATIVE) Ur Phencyclidine Scrn Negative (NEGATIVE) Ur Amphetamine Screen Negative (NEGATIVE) U Methamphetamines Scrn Negative (NEGATIVE) Urine MDMA Screen Negative (NEGATIVE) U Benzodiazepines Scrn Presumptive positive H (NEGATIVE) U Cocaine Metab Screen Negative (NEGATIVE) U Marijuana (THC) Screen Negative (NEGATIVE) 12/11/19 12/11/19 Range/Units 05:59 05:59 WBC 6.2 (4.5-11.0) K/uL RBC 3.67 (3.30-5.50) M/uL Hgb 10.8 L (12.0-15.0) g/dL Hct 38.2 (36.0-48.0) % MCV 104 H (80-98) fL MCH 29 (27-31) pg MCHC 28 L (32-36) % Plt Count 142 L (150-400) K/uL Puncture Site ABG pH (7.350-7.450) ABG pCO2 (35.0-42.0) mmHg ABG pO2 (75.0-100.0) mmHg ABG HCO3 (22.0-26.0) mmol/L ABG Total CO2 (21.0-25.0) mmol/L ABG O2 Saturation (95.0-98.0) % ABG O2 Content (15.0-23.0) %vol ABG Base Excess mm/L ABG Hemoglobin (12.0-16.0) g/dL ABG Oxyhemoglobin % ABG Carboxyhemoglobin (0.0-1.6) % ABG Methemoglobin % Henrik Test O2 Delivery Device Oxygen Flow Rate L Sodium 147 (140-148) mmol/L Potassium 3.9 (3.6-5.2) mmol/L Chloride 102 (100-108) mmol/L Carbon Dioxide > 45 H (21-32) mmol/L Anion Gap 3.9 L (5.0-14.0) mmol/L BUN 17 (7-18) mg/dL Creatinine 0.5 L (0.6-1.0) mg/dL Est Cr Clr Drug Dosing 65.06 mL/min Estimated GFR (MDRD) > 60 (>60) Glucose 106 (74-106) mg/dL Calcium 8.6 (8.5-10.1) mg/dL Urine Color (YELLOW) Urine Appearance (CLEAR) Urine pH (5.0-8.0) Ur Specific [place] (1.008-1.030) Urine Protein (NEGATIVE) mg/dL Urine Glucose (UA) (NEGATIVE) mg/dL Urine Ketones (NEGATIVE) mg/dL Urine Occult Blood (NEGATIVE) Urine Nitrite (NEGATIVE) Urine Bilirubin (NEGATIVE) Urine Urobilinogen (0.2-1.0) EU/dL Ur Leukocyte Esterase (NEGATIVE) Urine RBC (0-5) Urine WBC (0-5) Ur Epithelial Cells Amorphous Sediment Urine Bacteria Urine Mucus Urine Opiates Screen (NEGATIVE) Ur Oxycodone Screen (NEGATIVE) Urine Methadone Screen (NEGATIVE) Ur Propoxyphene Screen (NEGATIVE) Ur Barbiturates Screen (NEGATIVE) Ur Tricyclics Screen (NEGATIVE) Ur Phencyclidine Scrn (NEGATIVE) Ur Amphetamine Screen (NEGATIVE) U Methamphetamines Scrn (NEGATIVE) Urine MDMA Screen (NEGATIVE) U Benzodiazepines Scrn (NEGATIVE) U Cocaine Metab Screen (NEGATIVE) U Marijuana (THC) Screen (NEGATIVE) Med Orders - Current: Current Medications Acetaminophen (Tylenol) 650 mg PO Q4H PRN PRN Reason: Pain (Mild 1-3)/fever Albuterol (Proventil Neb Soln) 2.5 mg NEB Q2H PRN PRN Reason: Shortness Of Breath/wheezing Albuterol/Ipratropium (Duoneb 3.0-0.5 Mg/3 Ml) 3 ml NEB QIDRT [facility] Last Admin: 12/11/19 07:17 Dose: 3 ml Budesonide (Pulmicort) 0.5 mg INH BIDRT [facility] Last Admin: 12/11/19 07:17 Dose: 0.5 mg Citalopram Hydrobromide (Celexa) 10 mg PO DAILY [facility] Stop: 12/11/19 10:01 Lorazepam (Ativan) 0.5 mg IVPUSH Q4H PRN PRN Reason: Nausea/Vomiting Lorazepam (Ativan) 0.5 mg PO Q4H PRN PRN Reason: Anxiety Last Admin: 12/10/19 14:45 Dose: 0.5 mg Magnesium Hydroxide (Milk Of Magnesia) 30 ml PO Q12H PRN PRN Reason: Constipation Melatonin (Melatonin) 9 mg PO BEDTIME [facility] Last Admin: 12/10/19 21:43 Dose: 9 mg Ondansetron HCl (Zofran Odt) 4 mg PO Q6H PRN PRN Reason: Nausea able to take PO Ondansetron HCl (Zofran) 4 mg IV Q6H PRN PRN Reason: Nausea/Vomiting Senna/Docusate Sodium (Senna Plus) 1 tab PO BID PRN PRN Reason: Constipation Sodium Chloride (Saline Flush) 10 ml FLUSH ASDIRECTED PRN PRN Reason: Keep Vein Open Last Admin: 12/09/19 23:34 Dose: 10 ml Discontinued Medications Albuterol/Ipratropium (Combivent Respimat) 1 gm INH Q4H PRN PRN Reason: Dyspnea Albuterol/Ipratropium (Duoneb 3.0-0.5 Mg/3 Ml) 3 ml NEB ONETIME ONE Stop: 12/10/19 08:53 Last Admin: 12/10/19 08:56 Dose: 3 ml Albuterol/Ipratropium (Duoneb 3.0-0.5 Mg/3 Ml) Confirm Administered Dose 3 ml .ROUTE .STK-MED ONE Stop: 12/10/19 08:54 Last Admin: 12/10/19 08:57 Dose: Not Given Albuterol/Ipratropium (Duoneb 3.0-0.5 Mg/3 Ml) 3 ml NEB QID [facility] Last Admin: 12/10/19 09:49 Dose: 3 ml Budesonide (Pulmicort) 0.5 mg INH BID [facility] Last Admin: 12/10/19 09:49 Dose: 0.5 mg Flumazenil (Romazicon) 0.2 mg IVPUSH ONETIME ONE Stop: 12/10/19 06:21 Last Admin: 12/10/19 06:26 Dose: 0.2 mg Lactated Ringer's (Ringers, Lactated) 1,000 mls @ 999 mls/hr IV ASDIRECTED ONE Stop: 12/10/19 00:14 Last Admin: 12/09/19 23:34 Dose: 999 mls/hr Sodium Chloride (Normal Saline) 500 mls @ 500 mls/hr IV ASDIRECTED ONE Stop: 12/10/19 15:44 Last Admin: 12/10/19 14:45 Dose: 500 mls/hr Lorazepam (Ativan) 1 mg IVPUSH ONETIME ONE Stop: 12/09/19 23:16 Last Admin: 12/09/19 23:33 Dose: 1 mg Lorazepam (Ativan) 0.5 mg IVPUSH ONETIME ONE Stop: 12/10/19 07:22 Last Admin: 12/10/19 07:31 Dose: 0.5 mg - Exam Quality Assessment: Reports: Supplemental Oxygen General: Reports: Alert, Oriented, Cooperative, No Acute Distress Lungs: Denies: Normal Respiratory Effort (Mild increase in work of breathing), Wheezing Cardiovascular: Reports: Regular Rate, Regular Rhythm GI/Abdominal Exam: Soft, No Distention Extremities: No Pedal Edema Psy/Mental Status: Reports: Alert, Normal Affect
[2019-12-11] MEDS ORDERED: Citalopram 10 MG Tab PO SCH (10:00)
[2019-12-11 12:24] VITALS: BP 103/40
== END 2019-12-11 12:30 | disposition home or self-care (01) | DRG 189 ==
LOC: JP.ED 22:30 → JP.ICU 12-10 08:57
PROVIDERS: ADMIT Internal Medicine; ATTEND Internal Medicine
PROC: 5A09357 Assistance with Respiratory Ventilation, Less than 24 Consecutive Hours, Continuous Positive Airway Pressure (ICD-10-PCS; principal; 2019-12-10)
DX: J96.21 Acute and chronic respiratory failure with hypoxia (principal); J96.22 Acute and chronic respiratory failure with hypercapnia; F41.1 Generalized anxiety disorder; F40.01 Agoraphobia with panic disorder; E55.9 Vitamin D deficiency, unspecified; J43.9 Emphysema, unspecified; Z88.1 Allergy status to other antibiotic agents; Z88.0 Allergy status to penicillin; Z88.8 Allergy status to other drugs, medicaments and biological substances; Z79.899 Other long term (current) drug therapy; Z87.891 Personal history of nicotine dependence; Z87.01 Personal history of pneumonia (recurrent)
CPT/HCPCS: 36415; 36600; 71045; 71045-26; 80048; 80053; 80305-QW; 81001; 82803; 84145; 84484; 85025; 85027; 85379; 86140; 94640; 94660; 96361; 96374; 96375; 96376; 99285-25; A9270-GY; J2060; J3490; J7030; J7120; J7620-GY

== ENCOUNTER 2020-01-07 18:32 | Inpatient (IN) | payer MEDICAID ==
--- NOTE | 2020-01-07 19:07 | EDM.PDOC ---
<Lis Mishra M - Last Filed: 01/07/20 19:55> ED HPI GENERAL MEDICAL PROBLEM - General Chief Complaint: General Stated Complaint: MED[facility] Time Seen by Provider: 01/07/20 19:06 Source of Information: Reports: Patient, Old Records, RN, RN Notes Reviewed History Limitations: Reports: Respiratory Distress, Other (Pt very somulent but able to get limited history ) - History of Present Illness INITIAL COMMENTS - FREE TEXT/NARRATIVE: 59 year old female brought via EMS for worsening symptoms of SOB, fatigue, poor appetite and low intake. Pt is lying on stretcher in moderate distress with 4L NC in mouth. C/O pain to back unrelated. Onset Date: 01/03/20 Duration: Day(s):, Getting Worse Location: Reports: Chest Quality: Reports: Other Severity: Severe (SOB) Improves with: Reports: Other (Nothing) Associated Symptoms: Reports: Loss of Appetite, Shortness of Breath, Weakness Back Pain Score (Numeric/FACES): 5 - Related Data Allergies Allergy/AdvReac Type Severity Reaction Status Date / Time erythromycin lactobionate Allergy Severe Anaphylactic Verified 01/07/20 22:45 [From Erythrocin] Shock amitriptyline Allergy Anaphylactic Verified 01/07/20 22:45 Shock azithromycin [From Zithromax] Allergy Anaphylactic Verified 01/07/20 22:45 Shock buspirone [From BuSpar] Allergy Anaphylactic Verified 01/07/20 22:45 Shock clindamycin Allergy Anaphylactic Verified 01/07/20 22:45 Shock levofloxacin [From Levaquin] Allergy Anaphylactic Verified 01/07/20 22:45 Shock Penicillins Allergy Anaphylactic Verified 01/07/20 22:45 Shock prednisone Allergy Anaphylactic Verified 01/07/20 22:45 Shock varenicline Allergy Anaphylactic Verified 01/07/20 22:45 Shock varenicline tartrate Allergy Swelling Verified 01/07/20 22:45 [From Chantix] Home Meds: Home Meds Albuterol [Ventolin HFA] 2 puff INH Q4H PRN 07/01/14 [History] Albuterol/Ipratropium [DuoNeb 3.0-0.5 MG/3 ML] 1 dose INH QID 10/02/14 [History] ALPRAZolam [Alprazolam] 1 tab PO TID PRN 12/09/19 [History] Budesonide [Pulmicort] 0.5 mg IH BID 12/09/19 [History] Doxycycline [Vibramycin] 100 mg PO BID PRN 12/09/19 [History] Fluticasone Propion/Salmeterol [Fluticasone-Salmeterol 500-50] 1 dose INH BID 12/09/19 [History] Revefenacin [Yupelri] 175 mcg IN DAILY 12/09/19 [History] Citalopram [Citalopram HBr] 10 mg PO DAILY #30 tab 12/11/19 [Rx] PARoxetine [Paxil] 10 mg PO DAILY 01/07/20 [History] Past Medical History Respiratory History: Reports: COPD, Pneumonia, Recurrent, SOB Gastrointestinal History: Reports: Other (See Below) Other Gastrointestinal History: underweight [employer] History: Reports: , Spontaneous Musculoskeletal History: Reports: Fracture, Osteoporosis Neurological History: Reports: Seizure Psychiatric History: Reports: Anxiety, Depression, Emotional Problems, Panic Attack, Psych Hospitalization(s), Other (See Below) (Conversion disorder) Other Psychiatric History: conversion disorder Endocrine/Metabolic History: Reports: Vitamin D Deficiency - Infectious Disease History Infectious Disease History: Reports: Chicken Pox - Past Surgical History HEENT Surgical History: Reports: Naso-Sinus Surgery Other HEENT Surgeries/Procedures: broken nose Musculoskeletal Surgical History: Reports: Arthroscopic Knee Social & Family History - Caffeine Use Caffeine Use: Reports: None ED ROS GENERAL - Review of Systems Review Of Systems: See Below Constitutional: Reports: Malaise, Weakness, Fatigue, Decreased Appetite HEENT: Reports: No Symptoms Respiratory: Reports: Shortness of Breath, Other (COPD exacerbation) Cardiovascular: Reports: No Symptoms Endocrine: Reports: Fatigue GI/Abdominal: Reports: No Symptoms : Reports: No Symptoms Musculoskeletal: Reports: Back Pain Skin: Reports: Pallor, Dryness Neurological: Reports: Trouble Speaking, Weakness Psychiatric: Reports: No Symptoms Hematologic/Lymphatic: Reports: No Symptoms Immunologic: Reports: No Symptoms ED EXAM, GENERAL - Physical Exam Exam: See Below Exam Limited By: Respiratory Distress General Appearance: Moderate Distress, Other (With much prompting, able to ellicit limited H&P. ) Eye Exam: Bilateral Eye: Normal Inspection, PERRL Ears: Normal External Exam, Hearing Grossly Normal Ear Exam: Bilateral Ear: Auricle Normal Nose: Normal Inspection, Normal Mucosa, No Blood Throat/Mouth: Normal Inspection, Normal Lips Head: Normocephalic Neck: Normal Inspection, Supple, Non-Tender, Full Range of Motion Respiratory/Chest: Respiratory Distress, Decreased Breath Sounds, Accessory Mus ace Use Cardiovascular: Normal Peripheral Pulses, Regular Rate, Rhythm, No Edema, No Gallop, No JVD, No Murmur, No Rub Peripheral Pulses: 2+: Radial (L), Radial (R), Dorsalis Pedis (L), Dorsalis Pedis (R) GI/Abdominal: Normal Bowel Sounds, Soft, No Distention (Female) Exam: Deferred Rectal (Female) Exam: Deferred Back Exam: Normal Inspection, Other (C/o back pain but unable to explain ) Extremities: Normal Inspection, Normal Range of Motion, No Pedal Edema, Normal Capillary Refill, Pallor Neurological: No Motor/Sensory Deficits, Slow to Respond Psychiatric: Flat Affect, Other Skin Exam: Dry, Normal Color, No Rash, Cool Lymphatic: No Adenopathy Course - Re-Assessments/Exams Free Text/Narrative Re-Assessment/Exam: 01/07/20 19:13 In room to exam Labs ordered, ABG, CXR 01/07/20 19:30 RT called to initiate Bipap. ABG PCO2 151.0 pH 7.173 HCO3 53.1 BE 19.1 01/07/20 19:55 Rt in room applying bipap. Will admit to hospital for profound hypercapnia. Hospitalist contacted. Departure - Departure Time of Disposition: 19:56 Disposition: Admitted As Inpatient 66 Condition: Fair Clinical Impression: COPD exacerbation, Hypoxemia, Generalized anxiety disorder with panic attacks Hypercapnic respiratory failure Qualifiers: Chronicity: acute on chronic Qualified Code(s): J96.22 - Acute and chronic respiratory failure with hypercapnia COPD (chronic obstructive pulmonary disease) Qualifiers: COPD type: emphysema Emphysema type: unspecified Qualified Code(s): J43.9 - Emphysema, unspecified - Discharge Information *PRESCRIPTION DRUG MONITORING PROGRAM REVIEWED*: Not Applicable *COPY OF PRESCRIPTION DRUG MONITORING REPORT IN PATIENT DANIKA: Not Applicable Sepsis Event Note (ED) - Evaluation Sepsis Screening Result: No Definite Risk <Kian Victor - Last Filed: 01/07/20 23:50> Course - Vital Signs Text/Narrative:: I personally performed or re-performed the physical examination and medical decision making. I have verified all student documentation or findings, including history, physical exam and/or medical decision making. Last Recorded V/S: Last Vital Signs Temp 97.1 F 01/07/20 21:00 Pulse 96 01/07/20 23:00 Resp 22 H 01/07/20 23:00 BP 101/60 01/07/20 23:00 Pulse Ox 91 L 01/07/20 23:00 - Orders/Labs/Meds Orders: Active Orders 24 hr Category Date Time Status Chest 1V Frontal [CR] Stat Exams 01/07/20 19:04 Taken Medication Orders Acetaminophen (Tylenol) 650 mg PO Q4H PRN PRN Reason: Pain (Mild 1-3)/fever Albuterol (Proventil Neb Soln) 2.5 mg NEB Q1H PRN PRN Reason: shortness of breath/wheezing Last Admin: 01/07/20 23:16 Dose: 2.5 mg Documented by: ROBERT Albuterol/Ipratropium (Duoneb 3.0-0.5 Mg/3 Ml) 3 ml NEB QIDRT [facility] Last Admin: 01/07/20 21:33 Dose: 3 ml Documented by: ROBERT Enoxaparin Sodium (Lovenox) 40 mg SUBCUT DAILY [facility] Doxycycline Hyclate 100 mg/ (Sodium Chloride) 100 mls @ 100 mls/hr IV Q12H [facility] Last Admin: 01/07/20 21:33 Dose: 100 mls/hr Documented by: ROBERT Sodium Chloride (Normal Saline) 1,000 mls @ 75 mls/hr IV ASDIRECTED [facility] Last Admin: 01/07/20 21:36 Dose: 75 mls/hr Documented by: ROBERT Lorazepam (Ativan) 0.5 mg IVPUSH Q4H PRN PRN Reason: Nausea/Vomiting Magnesium Hydroxide (Milk Of Magnesia) 30 ml PO Q12H PRN PRN Reason: Constipation Morphine Sulfate (Morphine) 2 mg IVPUSH Q2H PRN PRN Reason: Pain (Severe 7-10)/Air Hunger Last Admin: 01/07/20 23:16 Dose: 2 mg Documented by: ROBERT Ondansetron HCl (Zofran) 4 mg IV Q6H PRN PRN Reason: Nausea/Vomiting Ondansetron HCl (Zofran Odt) 4 mg PO Q6H PRN PRN Reason: Nausea able to take PO Senna/Docusate Sodium (Senna Plus) 1 tab PO BID PRN PRN Reason: Constipation Labs: Laboratory Tests 01/07/20 01/07/20 01/07/20 Range/Units 19:15 19:15 19:15 WBC (4.5-11.0) K/uL RBC (3.30-5.50) M/uL Hgb (12.0-15.0) g/dL Hct (36.0-48.0) % MCV (80-98) fL MCH (27-31) pg MCHC (32-36) % Plt Count (150-400) K/uL Neut % (Auto) (36-66) % Lymph % (Auto) (24-44) % Harlan % (Auto) (2-6) % Eos % (Auto) (2-4) % Baso % (Auto) (0-1) % Puncture Site Rt radial ABG pH 7.173 L* (7.350-7.450) ABG pCO2 151.0 H* (35.0-42.0) mmHg ABG pO2 82.9 (75.0-100.0) mmHg ABG HCO3 53.1 H (22.0-26.0) mmol/L ABG Total CO2 50.9 H (21.0-25.0) mmol/L ABG O2 Saturation 94.0 L (95.0-98.0) % ABG O2 Content 15.4 (15.0-23.0) %vol ABG Base Excess 19.1 mm/L ABG Hemoglobin 11.9 L (12.0-16.0) g/dL ABG Oxyhemoglobin 91.7 % ABG Carboxyhemoglobin 1.4 (0.0-1.6) % ABG Methemoglobin 1.0 % Henrik Test Pass O2 Delivery Device Nasal cannula Oxygen Flow Rate 4.0 L Sodium (140-148) mmol/L Potassium (3.6-5.2) mmol/L Chloride (100-108) mmol/L Carbon Dioxide (21-32) mmol/L Anion Gap (5.0-14.0) mmol/L BUN (7-18) mg/dL Creatinine (0.6-1.0) mg/dL Est Cr Clr Drug Dosing mL/min Estimated GFR (MDRD) (>60) Glucose (74-106) mg/dL Calcium (8.5-10.1) mg/dL Total Bilirubin (0.2-1.0) mg/dL AST (15-37) U/L ALT (12-78) U/L Alkaline Phosphatase (46-116) U/L Troponin I (0.000-0.056) ng/mL C-Reactive Protein 0.81 H (0.0-0.3) mg/dL Total Protein (6.4-8.2) g/dL Albumin (3.4-5.0) g/dL Globulin (2.3-3.5) g/dL Albumin/Globulin Ratio (1.2-2.2) Procalcitonin 0.05 ng/mL 01/07/20 01/07/20 01/07/20 Range/Units 19:25 19:25 19:25 WBC 7.4 (4.5-11.0) K/uL RBC 3.88 (3.30-5.50) M/uL Hgb 11.7 L (12.0-15.0) g/dL Hct 40.2 (36.0-48.0) % MCV 104 H (80-98) fL MCH 30 (27-31) pg MCHC 29 L (32-36) % Plt Count 165 (150-400) K/uL Neut % (Auto) 84 H (36-66) % Lymph % (Auto) 7 L (24-44) % Harlan % (Auto) 8 H (2-6) % Eos % (Auto) 0 L (2-4) % Baso % (Auto) 0 (0-1) % Puncture Site ABG pH (7.350-7.450) ABG pCO2 (35.0-42.0) mmHg ABG pO2 (75.0-100.0) mmHg ABG HCO3 (22.0-26.0) mmol/L ABG Total CO2 (21.0-25.0) mmol/L ABG O2 Saturation (95.0-98.0) % ABG O2 Content (15.0-23.0) %vol ABG Base Excess mm/L ABG Hemoglobin (12.0-16.0) g/dL ABG Oxyhemoglobin % ABG Carboxyhemoglobin (0.0-1.6) % ABG Methemoglobin % Henrik Test O2 Delivery Device Oxygen Flow Rate L Sodium 149 H (140-148) mmol/L Potassium 4.6 (3.6-5.2) mmol/L Chloride 99 L (100-108) mmol/L Carbon Dioxide > 45 H (21-32) mmol/L Anion Gap 9.6 (5.0-14.0) mmol/L BUN 16 (7-18) mg/dL Creatinine 0.4 L (0.6-1.0) mg/dL Est Cr Clr Drug Dosing 86.75 mL/min Estimated GFR (MDRD) > 60 (>60) Glucose 151 H (74-106) mg/dL Calcium 9.3 (8.5-10.1) mg/dL Total Bilirubin 0.2 (0.2-1.0) mg/dL AST 16 (15-37) U/L ALT 24 (12-78) U/L Alkaline Phosphatase 81 (46-116) U/L Troponin I 0.053 (0.000-0.056) ng/mL C-Reactive Protein (0.0-0.3) mg/dL Total Protein 7.2 (6.4-8.2) g/dL Albumin 3.3 L (3.4-5.0) g/dL Globulin 3.9 H (2.3-3.5) g/dL Albumin/Globulin Ratio 0.9 L (1.2-2.2) Procalcitonin ng/mL Meds: Medications Generic Name Dose Route Start Last Admin Trade Name Dougq PRN Reason Stop Dose Admin Acetaminophen 650 mg 01/07/20 20:57 Tylenol PO Q4H PRN Pain (Mild 1-3)/fever Albuterol 2.5 mg 01/07/20 21:02 01/07/20 23:16 Proventil Neb Soln NEB 2.5 mg Q1H PRN Administration shortness of breath/wheezing Albuterol/Ipratropium 3 ml 01/07/20 21:00 01/07/20 21:33 Duoneb 3.0-0.5 Mg/3 Ml NEB 3 ml QIDRT [facility]QUAN Administration Enoxaparin Sodium 40 mg 01/08/20 09:00 Lovenox SUBCUT DAILY [facility] Doxycycline Hyclate 100 mg/ 100 mls @ 100 mls/hr 01/07/20 21:00 01/07/20 21:33 Sodium Chloride IV 100 mls/hr Q12H JAQUAN Administration Sodium Chloride 1,000 mls @ 75 mls/hr 01/07/20 20:57 01/07/20 21:36 Normal Saline IV 75 mls/hr ASDIRECTED [facility]QU[facility] Administration Lorazepam 0.5 mg 01/07/20 20:57 Ativan IVPUSH Q4H PRN Nausea/Vomiting Magnesium Hydroxide 30 ml 01/07/20 20:57 Milk Of Magnesia PO Q12H PRN Constipation Morphine Sulfate 2 mg 01/07/20 20:57 01/07/20 23:16 Morphine IVPUSH 2 mg Q2H PRN Administration Pain (Severe 7-10)/Air Hunger Ondansetron HCl 4 mg 01/07/20 20:57 Zofran IV Q6H PRN Nausea/Vomiting Ondansetron HCl 4 mg 01/07/20 20:57 Zofran Odt PO Q6H PRN Nausea able to take PO Senna/Docusate Sodium 1 tab 01/07/20 20:57 Senna Plus PO BID PRN Constipation Discontinued Medications Generic Name Dose Route Start Last Admin Trade Name Freq PRN Reason Stop Dose Admin Albuterol 2.5 mg 01/07/20 20:57 Proventil Neb Soln NEB Q2H PRN shortness of breath/wheezing Lorazepam 0.5 mg 01/07/20 20:02 01/07/20 20:20 Ativan IVPUSH 01/07/20 20:03 0.5 mg ONETIME ONE Administration Methylprednisolone Sodium Succinate 125 mg 01/07/20 20:57 01/07/20 21:33 Solu-Medrol IVPUSH 01/07/20 20:58 125 mg ONETIME ONE Administration Departure - Departure Time of Disposition: 21:10 Sepsis Event Note (ED) - Focused Exam Vital Signs: Vital Signs Temp Pulse Resp BP Pulse Ox 01/07/20 19:01 96.8 F L 85 22 H 129/64 98 01/07/20 19:00 82 18 142/47 H 97 01/07/20 18:37 96.8 F L 85 22 H 129/64 98
[2020-01-07] MEDS ORDERED: LORazepam 2 MG/ML SDV IVPUSH ONE (20:02)
--- NOTE | 2020-01-07 20:34 | PCM.HP.2 ---
H&P History of Present Illness - General Date of Service: 01/07/20 Admit Problem/Dx: Admission Diagnosis/Problem Admission Diagnosis/Problem Acute exacerbation of chronic obstructive airways disease Source of Information: Patient, Provider History Limitations: Reports: Respiratory Distress - History of Present Illness Initial Comments - Free Text/Narative: CC: I can't breath HPI: Jenny presents to the emergency room today with shortness of breath. She has respiratory distress and is somewhat confused because of her hypercapnia so I am not able to get any sort of usable history. We have tried multiple times to get hold of her and have been unable to get a hold of him for any additional history. She is able to tell me that she cannot breathe and is very short of breath. She did not respond when asked about coughing. We did try to talk about an advanced directive and she stated on 2 different occasions that she does not want to be intubated and does not want to be resuscitated if things get that bad. She keeps saying that she wants to talk to her and tried to make several phone calls but was unable to connect with him. She has declined using the noninvasive ventilation for the most part but was not more a greeable after she had a small dose of lorazepam. Work-up in the emergency room revealed severe hypercapnic respiratory failure with a pH of 7.1 and a PCO2 of greater than 150. Chest x-ray did not suggest pneumonia. She will be admitted to the intensive care unit for further management. Back Pain Score (Numeric/FACES): 5 - Related Data Allergies/Adverse Reactions: Allergies Allergy/AdvReac Type Severity Reaction Status Date / Time erythromycin lactobionate Allergy Severe Anaphylactic Verified 12/10/19 00:32 [From Erythrocin] Shock amitriptyline Allergy Anaphylactic Verified 12/10/19 00:32 Shock azithromycin [From Zithromax] Allergy Anaphylactic Verified 12/10/19 00:32 Shock buspirone [From BuSpar] Allergy Anaphylactic Verified 12/10/19 00:32 Shock clindamycin Allergy Anaphylactic Verified 12/10/19 00:32 Shock levofloxacin [From Levaquin] Allergy Anaphylactic Verified 12/10/19 00:32 Shock Penicillins Allergy Anaphylactic Verified 12/10/19 00:32 Shock prednisone Allergy Anaphylactic Verified 12/10/19 00:32 Shock varenicline Allergy Anaphylactic Verified 12/10/19 00:32 Shock varenicline tartrate Allergy Swelling Verified 12/10/19 00:32 [From Chantix] Home Medications: Home Meds Albuterol [Ventolin HFA] 2 puff INH Q4H PRN 07/01/14 [History] Albuterol/Ipratropium [DuoNeb 3.0-0.5 MG/3 ML] 1 dose INH QID 10/02/14 [History] ALPRAZolam [Alprazolam] 1 tab PO TID PRN 12/09/19 [History] Budesonide [Pulmicort] 0.5 mg IH BID 12/09/19 [History] Doxycycline [Vibramycin] 100 mg PO BID PRN 12/09/19 [History] Fluticasone Propion/Salmeterol [Fluticasone-Salmeterol 500-50] 1 dose INH BID 12/09/19 [History] Revefenacin [Yupelri] 175 mcg IN DAILY 12/09/19 [History] Citalopram [Citalopram HBr] 10 mg PO DAILY #30 tab 12/11/19 [Rx] Past Medical History Respiratory History: Reports: COPD, Pneumonia, Recurrent, SOB Gastrointestinal History: Reports: Other (See Below) Other Gastrointestinal History: underweight [employer] History: Reports: , Spontaneous Musculoskeletal History: Reports: Fracture, Osteoporosis Neurological History: Reports: Seizure Psychiatric History: Reports: Anxiety, Depression, Emotional Problems, Panic Attack, Psych Hospitalization(s), Other (See Below) (Conversion disorder) Other Psychiatric History: conversion disorder Endocrine/Metabolic History: Reports: Vitamin D Deficiency - Infectious Disease History Infectious Disease History: Reports: Chicken Pox - Past Surgical History HEENT Surgical History: Reports: Naso-Sinus Surgery Other HEENT Surgeries/Procedures: broken nose Musculoskeletal Surgical History: Reports: Arthroscopic Knee Social & Family History - Family History Family Medical History: Unobtainable (resp distress) - Tobacco Use Smoking Status *Q: Former Smoker Used Tobacco, but Quit: Yes Month/Year Tobacco Last Used: 0 - Caffeine Use Caffeine Use: Reports: None - Recreational Drug Use Recreational Drug Use: No H&P Review of Systems - Review of Systems: Review Of Systems: Unable To Obtain Reason Not Obtained: resp distress Exam - Exam Exam: See Below - Vital Signs Vital Signs: Last Vital Signs Temp 36.0 C L 01/07/20 19:01 Pulse 85 01/07/20 19:01 Resp 22 H 01/07/20 19:01 BP 129/64 01/07/20 19: Pulse Ox 98 01/07/20 19:01 Weight: 36.287 kg - Exam Quality Assessment: Supplemental Oxygen General: Alert, Cooperative, Moderate Distress. No: Oriented HEENT: Conjunctiva Clear. No: Mucosa Moist & [place] (dry), Scleral Icterus Neck: Supple, Trachea Midline Lungs: Other (very poor air movement ). No: Normal Respiratory Effort (increased work of breathing ), Wheezing Cardiovascular: Regular Rate, Regular Rhythm. No: Systolic Murmur GI/Abdominal Exam: Normal Bowel Sounds, Soft, Non-Tender, No Distention Extremities: No Pedal Edema. No: Increased Warmth Skin: Warm, Dry Neuro Extensive - Mental Status: Alert, Slow Response to Commands. No: Oriented x3 Neuro Extensive - Motor, Sensory, Reflexes: No: Dysarthria, Abnormal Motor Psychiatric: Alert, Other (sleepy ). No: Agitated - Patient Data Lab Results Last 24 hrs: Laboratory Results - last 24 hr 01/07/20 01/07/20 01/07/20 Range/Units 19:15 19:15 19:25 WBC (4.5-11.0) K/uL RBC (3.30-5.50) M/uL Hgb (12.0-15.0) g/dL Hct (36.0-48.0) % MCV (80-98) fL MCH (27-31) pg MCHC (32-36) % Plt Count (150-400) K/uL Neut % (Auto) (36-66) % Lymph % (Auto) (24-44) % [place] % (Auto) (2-6) % Eos % (Auto) (2-4) % Baso % (Auto) (0-1) % Puncture Site Rt radial ABG pH 7.173 L* (7.350-7.450) ABG pCO2 151.0 H* (35.0-42.0) mmHg ABG pO2 82.9 (75.0-100.0) mmHg ABG HCO3 53.1 H (22.0-26.0) mmol/L ABG Total CO2 50.9 H (21.0-25.0) mmol/L ABG O2 Saturation 94.0 L (95.0-98.0) % ABG O2 Content 15.4 (15.0-23.0) %vol ABG Base Excess 19.1 mm/L ABG Hemoglobin 11.9 L (12.0-16.0) g/dL ABG Oxyhemoglobin 91.7 % ABG Carboxyhemoglobin 1.4 (0.0-1.6) % ABG Methemoglobin 1.0 % Henrik Test Pass O2 Delivery Device Nasal cannula Oxygen Flow Rate 4.0 L Sodium 149 H (140-148) mmol/L Potassium 4.6 (3.6-5.2) mmol/L Chloride 99 L (100-108) mmol/L Carbon Dioxide > 45 H (21-32) mmol/L Anion Gap 9.6 (5.0-14.0) mmol/L BUN 16 (7-18) mg/dL Creatinine 0.4 L (0.6-1.0) mg/dL Est Cr Clr Drug Dosing 86.75 mL/min Estimated GFR (MDRD) > 60 (>60) Glucose 151 H (74-106) mg/dL Calcium 9.3 (8.5-10.1) mg/dL Total Bilirubin 0.2 (0.2-1.0) mg/dL AST 16 (15-37) U/L ALT 24 (12-78) U/L Alkaline Phosphatase 81 (46-116) U/L Troponin I (0.000-0.056) ng/mL C-Reactive Protein 0.81 H (0.0-0.3) mg/dL Total Protein 7.2 (6.4-8.2) g/dL Albumin 3.3 L (3.4-5.0) g/dL Globulin 3.9 H (2.3-3.5) g/dL Albumin/Globulin Ratio 0.9 L (1.2-2.2) 01/07/20 01/07/20 Range/Units 19:25 19:25 WBC 7.4 (4.5-11.0) K/uL RBC 3.88 (3.30-5.50) M/uL Hgb 11.7 L (12.0-15.0) g/dL Hct 40.2 (36.0-48.0) % MCV 104 H (80-98) fL MCH 30 (27-31) pg MCHC 29 L (32-36) % Plt Count 165 (150-400) K/uL Neut % (Auto) 84 H (36-66) % Lymph % (Auto) 7 L (24-44) % [place] % (Auto) 8 H (2-6) % Eos % (Auto) 0 L (2-4) % Baso % (Auto) 0 (0-1) % Puncture Site ABG pH (7.350-7.450) ABG pCO2 (35.0-42.0) mmHg ABG pO2 (75.0-100.0) mmHg ABG HCO3 (22.0-26.0) mmol/L ABG Total CO2 (21.0-25.0) mmol/L ABG O2 Saturation (95.0-98.0) % ABG O2 Content (15.0-23.0) %vol ABG Base Excess mm/L ABG Hemoglobin (12.0-16.0) g/dL ABG Oxyhemoglobin % ABG Carboxyhemoglobin (0.0-1.6) % ABG Methemoglobin % Henrik Test O2 Delivery Device Oxygen Flow Rate L Sodium (140-148) mmol/L Potassium (3.6-5.2) mmol/L Chloride (100-108) mmol/L Carbon Dioxide (21-32) mmol/L Anion Gap (5.0-14.0) mmol/L BUN (7-18) mg/dL Creatinine (0.6-1.0) mg/dL Est Cr Clr Drug Dosing mL/min Estimated GFR (MDRD) (>60) Glucose (74-106) mg/dL Calcium (8.5-10.1) mg/dL Total Bilirubin (0.2-1.0) mg/dL AST (15-37) U/L ALT (12-78) U/L Alkaline Phosphatase (46-116) U/L Troponin I 0.053 (0.000-0.056) ng/mL C-Reactive Protein (0.0-0.3) mg/dL Total Protein (6.4-8.2) g/dL Albumin (3.4-5.0) g/dL Globulin (2.3-3.5) g/dL Albumin/Globulin Ratio (1.2-2.2) Result Diagrams: 01/07/20 19:25 01/07/20 19:25 Imaging Impressions Last 24 hrs: CXR-image personally reviewed and compared to December 09-hyperinflated but lungs are otherwise clear with no mass, infiltrate or effusion. No significant change. Sepsis Event Note - Evaluation Sepsis Screening Result: No Definite Risk - Focused Exam Vital Signs: Vital Signs Temp Pulse Resp BP Pulse Ox 01/07/20 19:01 36.0 C L 85 22 H 129/64 98 01/07/20 19:00 82 18 142/47 H 97 01/07/20 18:37 36.0 C L 85 22 H 129/64 98 Date Exam was Performed: 01/07/20 Time Exam was Performed: 20:55 *Q Meaningful Use (ADM) - VTE Risk Assess *Q Each Risk Factor Represents 1 Point: Age 41 - 59 years, Serious lung disease including pneumonia, Abnormal Pulmonary Function (COPD) Total Score 1 Point Risk Factors: 3 Each Risk Factor Represents 2 Points: None Total Score 2 Point Risk Factors: 0 Each Risk Factor Represents 3 Points: None Total Score 3 Point Risk Factors: 0 Each Risk Factor Represents 5 Points: None Total Score 5 Point Risk Factors: 0 Venous Thromboembolism Risk Factor Score *Q: 3 - Problem List (1) COPD exacerbation SNOMED Code(s): 238035776 ICD Code: J44.1 - CHRONIC OBSTRUCTIVE PULMONARY DISEASE W (ACUTE) EXACERBATION Status: Acute Current Visit: Yes (2) Acute respiratory failure with hypoxia and hypercapnia SNOMED Code(s): 833629630 ICD Code: J96.01 - ACUTE RESPIRATORY FAILURE WITH HYPOXIA; J96.02 - ACUTE RESPIRATORY FAILURE WITH HYPERCAPNIA Status: Acute Current Visit: No (3) Generalized anxiety disorder with panic attacks SNOMED Code(s): 46905945 ICD Code: F41.1 - GENERALIZED ANXIETY DISORDER; F41.0 - PANIC DISORDER [EPISODIC PAROXYSMAL ANXIETY] Status: Chronic Current Visit: Yes Problem List Initiated/Reviewed/Updated: Yes Orders Last 24hrs: Active Orders 24 hr Category Date Time Status Patient Status Manage Transfer [TRANSFER] Routine ADT 01/07/20 20:20 Ordered Chest 1V Frontal [CR] Stat Exams 01/07/20 19:04 Taken PROCALCITONIN [CHEM] Stat Lab 01/07/20 19:15 Received Resuscitation Status Routine Resus Stat 01/07/20 20:22 Ordered Assessment/Plan Comment:: ASSESSMENT AND PLAN - Acute exacerbation of COPD-complicated by acute on chronic respiratory failure with both hypoxia and hypercapnia. At baseline she has severe oxygen dependent COPD. CRP is only minimally elevated and procalcitonin is normal. I suspect this is just further progression of what was already end-stage COPD. She has a BMI of less than 15 and no significant respiratory reserve. I do not have pulmonary function testing available. She has been somewhat resistant even to noninvasive ventilation and said she did not want intubation or mechanical ventilation. She is critically ill at this time. I did my best to inform her about my concerns that she may even with her most aggressive treatments. She stated that she was aware of this potential. She continues to state that she does not want intubation or mechanical ventilation. I am aware that she has a history of an allergy to prednisone which was anaphylactic shock but I think at this point the potential benefits of a trial of IV steroids outweigh the the risks. -Noninvasive ventilation as tolerated -Repeat blood gases in 1 hour -Scheduled and as needed nebulizers -One-time dose of Solu-Medrol, consider additional doses if she tolerates that -Empiric doxycycline Generalized anxiety disorder with panic attacks-significant anxiety history. She will likely need medications to help with this while she is having increased respiratory difficulty. -Lorazepam as needed -Restart citalopram when she is able to take medications Maintenance issues - - DVT prophylaxis -enoxaparin - GI prophylaxis -not indicated - Nutrition -nothing by mouth until she is more awake and alert - Lee catheter -not currently indicated but could be considered if condition declines CODE STATUS -DNR/DNI -discussed with Jenny in the emergency room Admission justification -this patient will be admitted for inpatient services and is medically appropriate meeting medical necessity for inpatient admission as outlined in my documentation. I reasonably expect the patient will require inpatient services that span a period time over 2 midnights. I reasonably expect this patient to be discharged or transferred within 96 hours after admission to the [facility]. Disposition -I would anticipate discharge home if she does survive the hospital stay Primary care physician -Dr. Dedra Masters M.D. - Mortality Measure Prognosis:: Poor
[2020-01-07] MEDS ORDERED: Ondansetron 4 MG Tab.DIS PO PRN (20:57)
[2020-01-07] MEDS ORDERED: Magnesium Hydroxide 400 MG/5 ML Susp 30 ML Cup PO PRN (20:57)
[2020-01-07] MEDS ORDERED: Acetaminophen 325 MG Tab PO PRN (20:57)
[2020-01-07] MEDS ORDERED: methylPREDNISolone Sodium Succinate 125 MG/2 ML SDV IVPUSH ONE (20:57)
[2020-01-07] MEDS ORDERED: Albuterol 0.083% 2.5 MG/3 ML Neb Soln NEB PRN (20:57)
[2020-01-07] MEDS ORDERED: Ondansetron 4 MG/2 ML SDV IV PRN (20:57)
[2020-01-07] MEDS ORDERED: LORazepam 2 MG/ML SDV IVPUSH PRN (21:01)
[2020-01-07] MEDS: Doxycycline 100 MG in Sodium Chloride 0.9% 100 ML IV SCH (21:33)
[2020-01-07] MEDS: Albuterol/Ipratropium 3.0-0.5 MG/3 ML Neb Soln NEB SCH (21:33)
[2020-01-07] MEDS: Sodium Chloride 0.9% 1,000 ML IV SCH (21:36)
[2020-01-07] MEDS: Albuterol 0.083% 2.5 MG/3 ML Neb Soln NEB PRN (23:16)
[2020-01-07] MEDS: Morphine 2 MG/ML SYRINGE IVPUSH PRN (23:16)
[2020-01-08] MEDS: LORazepam 2 MG/ML SDV IVPUSH PRN ×4 (01:11→22:37)
[2020-01-08] MEDS: Morphine 2 MG/ML SYRINGE IVPUSH PRN ×5 (01:12→20:59)
[2020-01-08] MEDS: Albuterol 0.083% 2.5 MG/3 ML Neb Soln NEB PRN ×2 (03:15→05:36)
[2020-01-08] MEDS: Albuterol/Ipratropium 3.0-0.5 MG/3 ML Neb Soln NEB SCH ×4 (07:08→20:38)
--- NOTE | 2020-01-08 08:53 | CR ---
CHEST: Portable 01/07/2020 at 7:27 PM CLINICAL HISTORY:COPD COMPARISON:12/10/2019 FINDINGS: There is a new patchy density in the right lower lobe not present on prior study. Heart size and pulmonary vascularity are normal. Lungs are generally hyperaerated. There is blunting the right costophrenic angle similar to prior study. IMPRESSION: Moderate changes of COPD New right lower lobe density is suspect for pneumonic infiltrate. Short-term follow-up recommended until clear
[2020-01-08] MEDS: Enoxaparin 40 MG/0.4 ML Syringe SUBCUT SCH (09:47)
[2020-01-08] MEDS: Doxycycline 100 MG in Sodium Chloride 0.9% 100 ML IV SCH ×2 (09:47→20:39)
[2020-01-08] MEDS ORDERED: LORazepam 0.5 MG Tab PO PRN (09:56)
--- NOTE | 2020-01-08 10:07 | PCM.PN ---
- General Info Date of Service: 01/08/20 Subjective Update: There were no acute events overnight. She rested well with the noninvasive ventilation. PCO2 is down to below 90 this morning and pH is normal. She feels less short of breath. She is more alert and interactive today. Still feels very short of breath. She is very weak and requires assistance even to set up. We did talk about CODE STATUS and she is agreeable to a short trial of intubation but does not have any interest in a tracheostomy if intubation was to become prolonged. She said that at that point if she needed a tracheostomy she would rather have aggressive cares stopped and transition to comfort cares. - Review of Systems General: Reports: Weakness. Denies: Fever Pulmonary: Reports: Shortness of Breath - Patient Data Vitals - Most Recent: Last Vital Signs Temp 36.9 C 01/08/20 08:00 Pulse 120 H 01/08/20 09:00 Resp 18 01/08/20 09:00 BP 114/63 01/08/20 09:00 Pulse Ox 90 L 01/08/20 09:00 Weight - Most Recent: 32.795 kg I&O - Last 24 Hours: Intake & Output 01/07/20 01/08/20 01/08/20 22:59 06:59 14:59 Intake Total 615 Output Total 75 Balance 615 -75 Lab Results Last 24 Hours: Laboratory Results - last 24 hr 01/07/20 01/07/20 01/07/20 Range/Units 19:15 19:15 19:15 WBC (4.5-11.0) K/uL RBC (3.30-5.50) M/uL Hgb (12.0-15.0) g/dL Hct (36.0-48.0) % MCV (80-98) fL MCH (27-31) pg MCHC (32-36) % Plt Count (150-400) K/uL Neut % (Auto) (36-66) % Lymph % (Auto) (24-44) % [place] % (Auto) (2-6) % Eos % (Auto) (2-4) % Baso % (Auto) (0-1) % Puncture Site Rt radial ABG pH 7.173 L* (7.350-7.450) ABG pCO2 151.0 H* (35.0-42.0) mmHg ABG pO2 82.9 (75.0-100.0) mmHg ABG HCO3 53.1 H (22.0-26.0) mmol/L ABG Total CO2 50.9 H (21.0-25.0) mmol/L ABG O2 Saturation 94.0 L (95.0-98.0) % ABG O2 Content 15.4 (15.0-23.0) %vol ABG Base Excess 19.1 mm/L ABG Hemoglobin 11.9 L (12.0-16.0) g/dL ABG Oxyhemoglobin 91.7 % ABG Carboxyhemoglobin 1.4 (0.0-1.6) % ABG Methemoglobin 1.0 % Henrik Test Pass O2 Delivery Device Nasal cannula Oxygen Flow Rate 4.0 L Sodium (140-148) mmol/L Potassium (3.6-5.2) mmol/L Chloride (100-108) mmol/L Carbon Dioxide (21-32) mmol/L Anion Gap (5.0-14.0) mmol/L BUN (7-18) mg/dL Creatinine (0.6-1.0) mg/dL Est Cr Clr Drug Dosing mL/min Estimated GFR (MDRD) (>60) Glucose (74-106) mg/dL Calcium (8.5-10.1) mg/dL Total Bilirubin (0.2-1.0) mg/dL AST (15-37) U/L ALT (12-78) U/L Alkaline Phosphatase (46-116) U/L Troponin I (0.000-0.056) ng/mL C-Reactive Protein 0.81 H (0.0-0.3) mg/dL Total Protein (6.4-8.2) g/dL Albumin (3.4-5.0) g/dL Globulin (2.3-3.5) g/dL Albumin/Globulin Ratio (1.2-2.2) Procalcitonin 0.05 ng/mL 01/07/20 01/07/20 01/07/20 Range/Units 19:25 19:25 19:25 WBC 7.4 (4.5-11.0) K/uL RBC 3.88 (3.30-5.50) M/uL Hgb 11.7 L (12.0-15.0) g/dL Hct 40.2 (36.0-48.0) % MCV 104 H (80-98) fL MCH 30 (27-31) pg MCHC 29 L (32-36) % Plt Count 165 (150-400) K/uL Neut % (Auto) 84 H (36-66) % Lymph % (Auto) 7 L (24-44) % [place] % (Auto) 8 H (2-6) % Eos % (Auto) 0 L (2-4) % Baso % (Auto) 0 (0-1) % Puncture Site ABG pH (7.350-7.450) ABG pCO2 (35.0-42.0) mmHg ABG pO2 (75.0-100.0) mmHg ABG HCO3 (22.0-26.0) mmol/L ABG Total CO2 (21.0-25.0) mmol/L ABG O2 Saturation (95.0-98.0) % ABG O2 Content (15.0-23.0) %vol ABG Base Excess mm/L ABG Hemoglobin (12.0-16.0) g/dL ABG Oxyhemoglobin % ABG Carboxyhemoglobin (0.0-1.6) % ABG Methemoglobin % Henrik Test O2 Delivery Device Oxygen Flow Rate L Sodium 149 H (140-148) mmol/L Potassium 4.6 (3.6-5.2) mmol/L Chloride 99 L (100-108) mmol/L Carbon Dioxide > 45 H (21-32) mmol/L Anion Gap 9.6 (5.0-14.0) mmol/L BUN 16 (7-18) mg/dL Creatinine 0.4 L (0.6-1.0) mg/dL Est Cr Clr Drug Dosing 86.75 mL/min Estimated GFR (MDRD) > 60 (>60) Glucose 151 H (74-106) mg/dL Calcium 9.3 (8.5-10.1) mg/dL Total Bilirubin 0.2 (0.2-1.0) mg/dL AST 16 (15-37) U/L ALT 24 (12-78) U/L Alkaline Phosphatase 81 (46-116) U/L Troponin I 0.053 (0.000-0.056) ng/mL C-Reactive Protein (0.0-0.3) mg/dL Total Protein 7.2 (6.4-8.2) g/dL Albumin 3.3 L (3.4-5.0) g/dL Globulin 3.9 H (2.3-3.5) g/dL Albumin/Globulin Ratio 0.9 L (1.2-2.2) Procalcitonin ng/mL 01/07/20 01/08/20 01/08/20 Range/Units 21:55 04:15 04:15 WBC 3.7 L (4.5-11.0) K/uL RBC 3.62 (3.30-5.50) M/uL Hgb 10.9 L (12.0-15.0) g/dL Hct 37.5 (36.0-48.0) % MCV 104 H (80-98) fL MCH 30 (27-31) pg MCHC 29 L (32-36) % Plt Count 147 L (150-400) K/uL Neut % (Auto) (36-66) % Lymph % (Auto) (24-44) % [place] % (Auto) (2-6) % Eos % (Auto) (2-4) % Baso % (Auto) (0-1) % Puncture Site Lt radial L radial ABG pH 7.191 L* 7.370 (7.350-7.450) ABG pCO2 140.0 H* 85.7 H* (35.0-42.0) mmHg ABG pO2 70.6 L 46.3 L (75.0-100.0) mmHg ABG HCO3 51.7 H 48.4 H (22.0-26.0) mmol/L ABG Total CO2 49.5 H 44.7 H (21.0-25.0) mmol/L ABG O2 Saturation 91.6 L 82.0 L (95.0-98.0) % ABG O2 Content 14.8 L 12.6 L (15.0-23.0) %vol ABG Base Excess 18.5 19.4 mm/L ABG Hemoglobin 11.7 L 11.2 L (12.0-16.0) g/dL ABG Oxyhemoglobin 89.5 79.9 % ABG Carboxyhemoglobin 1.5 1.6 (0.0-1.6) % ABG Methemoglobin 0.8 0.9 % Henrik Test Pass Ok O2 Delivery Device Nasal cannula Oxygen Flow Rate L Sodium (140-148) mmol/L Potassium (3.6-5.2) mmol/L Chloride (100-108) mmol/L Carbon Dioxide (21-32) mmol/L Anion Gap (5.0-14.0) mmol/L BUN (7-18) mg/dL Creatinine (0.6-1.0) mg/dL Est Cr Clr Drug Dosing mL/min Estimated GFR (MDRD) (>60) Glucose (74-106) mg/dL Calcium (8.5-10.1) mg/dL Total Bilirubin (0.2-1.0) mg/dL AST (15-37) U/L ALT (12-78) U/L Alkaline Phosphatase (46-116) U/L Troponin I (0.000-0.056) ng/mL C-Reactive Protein (0.0-0.3) mg/dL Total Protein (6.4-8.2) g/dL Albumin (3.4-5.0) g/dL Globulin (2.3-3.5) g/dL Albumin/Globulin Ratio (1.2-2.2) Procalcitonin ng/mL 01/07/ Range/Units 04:15 WBC (4.5-11.0) K/uL RBC (3.30-5.50) M/uL Hgb (12.0-15.0) g/dL Hct (36.0-48.0) % MCV (80-98) fL MCH (27-31) pg MCHC (32-36) % Plt Count (150-400) K/uL Neut % (Auto) (36-66) % Lymph % (Auto) (24-44) % [place] % (Auto) (2-6) % Eos % (Auto) (2-4) % Baso % (Auto) (0-1) % Puncture Site ABG pH (7.350-7.450) ABG pCO2 (35.0-42.0) mmHg ABG pO2 (75.0-100.0) mmHg ABG HCO3 (22.0-26.0) mmol/L ABG Total CO2 (21.0-25.0) mmol/L ABG O2 Saturation (95.0-98.0) % ABG O2 Content (15.0-23.0) %vol ABG Base Excess mm/L ABG Hemoglobin (12.0-16.0) g/dL ABG Oxyhemoglobin % ABG Carboxyhemoglobin (0.0-1.6) % ABG Methemoglobin % Henrik Test O2 Delivery Device Oxygen Flow Rate L Sodium 147 (140-148) mmol/L Potassium 4.2 (3.6-5.2) mmol/L Chloride 100 (100-108) mmol/L Carbon Dioxide 45 H (21-32) mmol/L Anion Gap 6.2 (5.0-14.0) mmol/L BUN 18 (7-18) mg/dL Creatinine 0.4 L (0.6-1.0) mg/dL Est Cr Clr Drug Dosing 78.40 mL/min Estimated GFR (MDRD) > 60 (>60) Glucose 146 H (74-106) mg/dL Calcium 9.8 (8.5-10.1) mg/dL Total Bilirubin (0.2-1.0) mg/dL AST (15-37) U/L ALT (12-78) U/L Alkaline Phosphatase (46-116) U/L Troponin I (0.000-0.056) ng/mL C-Reactive Protein (0.0-0.3) mg/dL Total Protein (6.4-8.2) g/dL Albumin (3.4-5.0) g/dL Globulin (2.3-3.5) g/dL Albumin/Globulin Ratio (1.2-2.2) Procalcitonin ng/mL Med Orders - Current: Current Medications Acetaminophen (Tylenol) 650 mg PO Q4H PRN PRN Reason: Pain (Mild 1-3)/fever Albuterol (Proventil Neb Soln) 2.5 mg NEB Q1H PRN PRN Reason: shortness of breath/wheezing Last Admin: 01/08/20 05:36 Dose: 2.5 mg Documented by: Albuterol/Ipratropium (Duoneb 3.0-0.5 Mg/3 Ml) 3 ml NEB QIDRT [facility] Last Admin: 01/08/20 07:08 Dose: 3 ml Documented by: Citalopram Hydrobromide (Celexa) 10 mg PO DAILY [facility] Enoxaparin Sodium (Lovenox) 40 mg SUBCUT DAILY [facility] Last Admin: 01/08/20 09:47 Dose: 40 mg Documented by: Doxycycline Hyclate 100 mg/ (Sodium Chloride) 100 mls @ 100 mls/hr IV Q12H [facility] Last Admin: 01/08/20 09:47 Dose: 100 mls/hr Documented by: Sodium Chloride (Normal Saline) 1,000 mls @ 75 mls/hr IV ASDIRECTED [facility] Last Admin: 01/07/20 21:36 Dose: 75 mls/hr Documented by: Lorazepam (Ativan) 0.5 mg IVPUSH Q4H PRN PRN Reason: Nausea/Vomiting Last Admin: 01/08/20 05:16 Dose: 0.5 mg Documented by: Lorazepam (Ativan) 0.5 mg PO Q4H PRN PRN Reason: Anxiety Magnesium Hydroxide (Milk Of Magnesia) 30 ml PO Q12H PRN PRN Reason: Constipation Methylprednisolone Sodium Succinate (Solu-Medrol) 62.5 mg IVPUSH Q8H [facility] Morphine Sulfate (Morphine) 2 mg IVPUSH Q2H PRN PRN Reason: Pain (Severe 7-10)/Air Hunger Last Admin: 01/08/20 05:36 Dose: 2 mg Documented by: Ondansetron HCl (Zofran) 4 mg IV Q6H PRN PRN Reason: Nausea/Vomiting Ondansetron HCl (Zofran Odt) 4 mg PO Q6H PRN PRN Reason: Nausea able to take PO Senna/Docusate Sodium (Senna Plus) 1 tab PO BID PRN PRN Reason: Constipation Discontinued Medications Albuterol (Proventil Neb Soln) 2.5 mg NEB Q2H PRN PRN Reason: shortness of breath/wheezing Lorazepam (Ativan) 0.5 mg IVPUSH ONETIME ONE Stop: 01/07/20 20:03 Last Admin: 01/07/20 20:20 Dose: 0.5 mg Documented by: Methylprednisolone Sodium Succinate (Solu-Medrol) 125 mg IVPUSH ONETIME ONE Stop: 01/07/20 20:58 Last Admin: 01/07/20 21:33 Dose: 125 mg Documented by: - Exam Quality Assessment: Supplemental Oxygen General: Alert, Oriented, Cooperative, Mild Distress Lungs: Wheezing (severe diffuse exp ). No: Normal Respiratory Effort (increased work of breathing ), Crackles, Rhonchi Cardiovascular: Regular Rhythm, Tachycardia GI/Abdominal Exam: Soft, No Distention Extremities: No Pedal Edema. No: Increased Warmth Skin: Warm, Dry Psy/Mental Status: Alert, Anxious Sepsis Event Note - Evaluation Sepsis Screening Result: Severe Sepsis Risk - Focused Exam Vital Signs: Vital Signs Temp Pulse Resp BP Pulse Ox Pulse Ox 01/08/20 09:00 120 H 18 114/63 90 L 01/08/20 08:00 36.9 C 108 H 28 H 107/62 89 L 01/08/20 07:08 97 90 L 01/08/20 07:00 36.9 C 101 H 27 H 118/67 89 L 01/08/20 06:00 114 H 23 H 113/60 97 01/08/20 05:00 100 27 H 102/63 93 L 01/08/20 04:00 36.8 C 109 H 28 H 120/68 92 L 01/08/20 03:00 104 H 28 H 101/58 L 95 01/08/20 02:00 96 25 H 107/62 91 L 01/08/20 01:00 94 26 H 115/67 92 L 01/08/20 00:00 104 H 25 H 96/60 89 L 01/07/20 23:00 96 22 H 101/60 91 L 01/07/20 22:00 82 27 H 99/56 L 91 L Date Exam was Performed: 01/08/20 Time Exam was Performed: 09:59 - Problem List & Annotations (1) COPD exacerbation SNOMED Code(s): 022163414 Code(s): J44.1 - CHRONIC OBSTRUCTIVE PULMONARY DISEASE W (ACUTE) EXACERBATION Status: Acute Current Visit: Yes (2) Acute respiratory failure with hypoxia and hypercapnia SNOMED Code(s): 249837617 Code(s): J96.01 - ACUTE RESPIRATORY FAILURE WITH HYPOXIA; J96.02 - ACUTE RESPIRATORY FAILURE WITH HYPERCAPNIA Status: Acute Current Visit: No (3) Generalized anxiety disorder with panic attacks SNOMED Code(s): 84564256 Code(s): F41.1 - GENERALIZED ANXIETY DISORDER; F41.0 - PANIC DISORDER [EPISODIC PAROXYSMAL ANXIETY] Status: Chronic Current Visit: Yes (4) Chronic respiratory failure with hypoxia and hypercapnia SNOMED Code(s): 86609688, 242613328 Code(s): J96.11 - CHRONIC RESPIRATORY FAILURE WITH HYPOXIA; J96.12 - CHRONIC RESPIRATORY FAILURE WITH HYPERCAPNIA Status: Chronic Current Visit: Yes - Problem List Review Problem List Initiated/Reviewed/Updated: Yes - My Orders Last 24 Hours: My Active Orders 01/07/20 Dinner Nothing per Oral Now Diet [DIET] 01/07/20 20:22 Resuscitation Status Routine 01/07/20 20:57 Acetaminophen [Tylenol] 650 mg PO Q4H PRN Docusate Sodium/Sennosides [Senna Plus] 1 tab PO BID PRN LORazepam [Ativan] 0.5 mg IVPUSH Q4H PRN Magnesium Hydroxide [Milk of Magnesia] 30 ml PO Q12H PRN Morphine Sulfate [Morphine] 2 mg IVPUSH Q2H PRN Ondansetron [Zofran ODT] 4 mg PO Q6H PRN Ondansetron [Zofran] 4 mg IV Q6H PRN Sodium Chloride 0.9% [Normal Saline] 1,000 ml IV ASDIRECTED 01/07/20 20:57 Patient Status [ADT] Routine Bedrest Bedside Commode [RC] ASDIRECTED Cardiac Monitoring [RC] Q6H Intake and Output [RC] QSHIFT Notify Provider Vital Signs [RC] ASDIRECTED Oxygen Therapy [RC] PRN Pulse Oximetry [RC] CONTINUOUS RT Aerosol Therapy [RC] ASDIRECTED VTE/DVT Education [RC] Per Unit Routine Vital Signs [RC] Q2H 01/07/20 21:00 Albuterol/Ipratropium [DuoNeb 3.0-0.5 MG/3 ML] 3 ml NEB QIDRT Doxycycline [Vibramycin] 100 mg Sodium Chloride 0.9% [Normal Saline] 100 ml IV Q12H 01/07/20 21:02 BIPAP Adult [RT BiPAP/CPAP] [RC] ASDIRECTED Albuterol [Proventil Neb Soln] 2.5 mg NEB Q1H PRN 01/08/20 09:00 Enoxaparin [Lovenox] 40 mg SUBCUT DAILY 01/08/20 09:56 LORazepam [Ativan] 0.5 mg PO Q4H PRN 01/08/20 09:57 RT Aerosol Therapy [RC] ASDIRECTED Ang Chest [CT] Routine 01/08/20 10:00 Budesonide [Pulmicort] 0.5 mg NEB BIDRT Citalopram [Celexa] 10 mg PO DAILY methylPREDNISolone Sod Succ [Solu-MEDROL] 62.5 mg IVPUSH Q8H 01/08/20 17:00 BLOOD GAS ARTERIAL [BG] Timed 01/09/20 05:00 BASIC METABOLIC PANEL,BMP [CHEM] Timed BLOOD GAS ARTERIAL [BG] Timed CBC W/O DIFF,HEMOGRAM [HEME] Timed (1) - Plan Plan:: ASSESSMENT AND PLAN - Acute exacerbation of COPD-complicated by acute on chronic respiratory failure with both hypoxia and hypercapnia. At baseline she has severe oxygen dependent COPD. Did fairly well with the noninvasive ventilation overnight and pH is within normal limits and PCO2 is down below 90. She is more alert and interactive but still somewhat sleepy. No fevers. I did try to talk to her director of psychology but she was not available today. Planning CT pulmonary angiogram to rule out other causes for her exacerbation but I still suspect that this is related to potentially environmental causes and and worsening of her chronic lung disease. -CT pulmonary angiogram -Noninvasive ventilation as tolerated -Repeat blood gases this evening and in the morning -Scheduled and as needed nebulizers -Solu-Medrol every 8 hours -Empiric doxycycline -Discussion with her director of psychology when she is available Generalized anxiety disorder with panic attacks-significant anxiety history. Doing well with her anxiety so far. -Lorazepam as needed -Restart citalopram Chronic respiratory failure with hypoxia and hypercapnia (J96.11)-she has oxygen dependent COPD and blood gases show a PCO2 of more than 80 with a normal pH suggesting chronic CO2 retention. Her bicarb level at the time of admission was greater than 45 suggesting a chronic condition as well. She suffers from acute on chronic respiratory failure with both hypoxia and hypercapnia secondary to COPD. I believe she would benefit significantly from a noninvasive ventilator because of the severity of her disease. This noninvasive ventilation is required to decrease her work of breathing and improve her pulmonary status. Interruption of this support could lead to serious harm with worsening respiratory status and increasing CO2 retention with its resulting morbidity and mortality. I believe this would also help reduce admissions to the hospital because of her respiratory issues. She would benefit from using the noninvasive ventilation nightly and with naps likely for the rest of her life. She has had a variety of other medical interventions which have not provided sufficient therapy. She has tolerated noninvasive ventilation well in the hospital with significant improvement in her respiratory status. Maintenance issues - - DVT prophylaxis -enoxaparin - GI prophylaxis -not indicated - Nutrition -nothing by mouth until she is more awake and alert - Lee catheter -not currently indicated but could be considered if condition declines CODE STATUS -FULL CODE but no tracheostomy-discussed with Jenny and her Thomas Disposition -I would anticipate discharge home if she does survive the hospital stay Primary care physician -Dr. Dedra Masters M.D.
[2020-01-08] MEDS ORDERED: Sodium Chloride 0.9% 10 ML Syringe FLUSH ONE (10:58)
[2020-01-08] MEDS ORDERED: Sodium Chloride 0.9% 100 ML IV SCH (11:00)
[2020-01-08] MEDS ORDERED: Iopamidol 755 Mg/ML 100 ML Bottle IV SCH (11:00)
[2020-01-08] MEDS: Citalopram 10 MG Tab PO SCH (11:05)
[2020-01-08] MEDS: methylPREDNISolone Sodium Succinate 125 MG/2 ML SDV IVPUSH SCH ×2 (11:07→17:35)
--- NOTE | 2020-01-08 11:07 | CT ---
Ang Chest CLINICAL HISTORY: Respiratory failure TECHNIQUE: Thin section axial contiguous tomographic sections were taken through the chest after bolus IV iodinated contrast administration. Coronal and sagittal images were reconstructed. Auto dosage reduction and iterative reconstruction techniques employed. FINDINGS: There is some breathing motion. Lung window images show moderate to the infiltrate in the right middle lobe more prominent in the lateral segment with some areas of consolidation.. This was described on current chest x-ray. There are severe diffuse emphysematous changes with scattered areas of pleural parenchymal scarring. There is diffuse bronchiectasis. There is some right lower lobe bronchial thickening. Resolution of the smaller branching arteries is limited due to motion. No filling defects are identified. There is no vessel cut off. IMPRESSION: Limited study due to breathing motion No evidence to suggest pulmonary embolus Moderate right middle lobe pneumonic infiltrate with some areas of consolidation Severe COPD
[2020-01-08] MEDS: Budesonide 0.5 MG/2 ML Neb Susp NEB SCH ×2 (11:09→20:38)
[2020-01-08] MEDS ORDERED: LORazepam 2 MG/ML SDV IVPUSH ONE (12:13)
[2020-01-08] MEDS ORDERED: cefTRIAXone 1 GM in Sodium Chloride 0.9% 50 ML IV SCH (12:30)
[2020-01-08] MEDS: cefTRIAXone 1 GM in Sodium Chloride 0.9% 50 ML IV SCH (12:33)
[2020-01-08] MEDS: Sodium Chloride 0.9% 1,000 ML IV SCH (12:38)
[2020-01-09] MEDS: methylPREDNISolone Sodium Succinate 125 MG/2 ML SDV IVPUSH SCH ×3 (01:47→17:33)
[2020-01-09] MEDS: LORazepam 2 MG/ML SDV IVPUSH PRN ×2 (04:01→23:59)
[2020-01-09] MEDS: Sodium Chloride 0.9% 1,000 ML IV SCH ×2 (04:03→18:30)
[2020-01-09] MEDS: Budesonide 0.5 MG/2 ML Neb Susp NEB SCH ×2 (07:24→21:29)
[2020-01-09] MEDS: Albuterol/Ipratropium 3.0-0.5 MG/3 ML Neb Soln NEB SCH ×4 (07:25→21:23)
[2020-01-09] MEDS: Citalopram 10 MG Tab PO SCH (08:10)
[2020-01-09] MEDS: Enoxaparin 40 MG/0.4 ML Syringe SUBCUT SCH (08:10)
[2020-01-09] MEDS: Doxycycline 100 MG in Sodium Chloride 0.9% 100 ML IV SCH ×2 (08:11→21:26)
--- NOTE | 2020-01-09 09:53 | PCM.PN ---
- General Info Date of Service: 01/09/20 Subjective Update: There were no acute events overnight. Patient used noninvasive ventilation for several hours but has been on supplemental oxygen since about 3 AM. She feels less short of breath today. She does not have much of a cough. She does feel weak. Appetite has been improving. PCO2 is down in the low 70s today and her pH is normal. She has not had any fevers. Functional Status: Reports: Pain Controlled, Tolerating Diet - Review of Systems General: Reports: Weakness. Denies: Fever Pulmonary: Reports: Shortness of Breath - Patient Data Vitals - Most Recent: Last Vital Signs Temp 36.8 C 01/09/20 08:00 Pulse 96 01/09/20 08:00 Resp 29 H 01/09/20 08:00 BP 144/73 H 01/09/20 08:00 Pulse Ox 92 L 01/09/20 08:00 Weight - Most Recent: 78.2 kg I&O - Last 24 Hours: Intake & Output 01/08/20 01/09/20 01/09/20 22:59 06:59 14:59 Intake Total 808 282 Output Total 350 Balance 458 282 Lab Results Last 24 Hours: Laboratory Results - last 24 hr 01/08/20 01/09/20 01/09/20 Range/Units 17:22 05:00 05:00 WBC 7.9 (4.5-11.0) K/uL RBC 3.36 (3.30-5.50) M/uL Hgb 10.1 L (12.0-15.0) g/dL Hct 33.6 L (36.0-48.0) % MCV 100 H (80-98) fL MCH 30 (27-31) pg MCHC 30 L (32-36) % Plt Count 177 (150-400) K/uL Puncture Site Lt radial R radial ABG pH 7.313 L 7.385 (7.350-7.450) ABG pCO2 83.4 H* 71.2 H* (35.0-42.0) mmHg ABG pO2 79.7 75.2 (75.0-100.0) mmHg ABG HCO3 41.0 H 41.7 H (22.0-26.0) mmol/L ABG Total CO2 38.3 H 38.7 H (21.0-25.0) mmol/L ABG O2 Saturation 94.4 L 94.3 L (95.0-98.0) % ABG O2 Content 14.6 L 13.7 L (15.0-23.0) %vol ABG Base Excess 12.2 14.3 mm/L ABG Hemoglobin 11.2 L 10.4 L (12.0-16.0) g/dL ABG Oxyhemoglobin 92.3 92.6 % ABG Carboxyhemoglobin 1.3 1.1 (0.0-1.6) % ABG Methemoglobin 0.9 0.7 % Henrik Test Pass Passed O2 Delivery Device Nasal cannula Nasal cannula Oxygen Flow Rate 3.0 2.0 L Sodium (140-148) mmol/L Potassium (3.6-5.2) mmol/L Chloride (100-108) mmol/L Carbon Dioxide (21-32) mmol/L Anion Gap (5.0-14.0) mmol/L BUN (7-18) mg/dL Creatinine (0.6-1.0) mg/dL Est Cr Clr Drug Dosing mL/min Estimated GFR (MDRD) (>60) Glucose (74-106) mg/dL Calcium (8.5-10.1) mg/dL 01/09/20 Range/Units 05:00 WBC (4.5-11.0) K/uL RBC (3.30-5.50) M/uL Hgb (12.0-15.0) g/dL Hct (36.0-48.0) % MCV (80-98) fL MCH (27-31) pg MCHC (32-36) % Plt Count (150-400) K/uL Puncture Site ABG pH (7.350-7.450) ABG pCO2 (35.0-42.0) mmHg ABG pO2 (75.0-100.0) mmHg ABG HCO3 (22.0-26.0) mmol/L ABG Total CO2 (21.0-25.0) mmol/L ABG O2 Saturation (95.0-98.0) % ABG O2 Content (15.0-23.0) %vol ABG Base Excess mm/L ABG Hemoglobin (12.0-16.0) g/dL ABG Oxyhemoglobin % ABG Carboxyhemoglobin (0.0-1.6) % ABG Methemoglobin % Henrik Test O2 Delivery Device Oxygen Flow Rate L Sodium 147 (140-148) mmol/L Potassium 4.1 (3.6-5.2) mmol/L Chloride 105 (100-108) mmol/L Carbon Dioxide 41 H (21-32) mmol/L Anion Gap 5.1 (5.0-14.0) mmol/L BUN 20 H (7-18) mg/dL Creatinine 0.5 L (0.6-1.0) mg/dL Est Cr Clr Drug Dosing 94.98 mL/min Estimated GFR (MDRD) > 60 (>60) Glucose 146 H (74-106) mg/dL Calcium 9.4 (8.5-10.1) mg/dL Med Orders - Current: Current Medications Acetaminophen (Tylenol) 650 mg PO Q4H PRN PRN Reason: Pain (Mild 1-3)/fever Albuterol (Proventil Neb Soln) 2.5 mg NEB Q1H PRN PRN Reason: shortness of breath/wheezing Last Admin: 01/08/20 05:36 Dose: 2.5 mg Documented by: Albuterol/Ipratropium (Duoneb 3.0-0.5 Mg/3 Ml) 3 ml NEB QIDRT [facility] Last Admin: 01/09/20 07:25 Dose: 3 ml Documented by: Budesonide (Pulmicort) 0.5 mg NEB BIDRT [facility] Last Admin: 01/09/20 07:24 Dose: 0.5 mg Documented by: Citalopram Hydrobromide (Celexa) 10 mg PO DAILY [facility] Last Admin: 01/09/20 08:10 Dose: 10 mg Documented by: Enoxaparin Sodium (Lovenox) 40 mg SUBCUT DAILY [facility] Last Admin: 01/09/20 08:10 Dose: 40 mg Documented by: Doxycycline Hyclate 100 mg/ (Sodium Chloride) 100 mls @ 100 mls/hr IV Q12H [facility] Last Admin: 01/09/20 08:11 Dose: 100 mls/hr Documented by: Sodium Chloride (Normal Saline) 1,000 mls @ 75 mls/hr IV ASDIRECTED [facility] Last Admin: 01/09/20 04:03 Dose: 75 mls/hr Documented by: Ceftriaxone Sodium 1 gm/ (Sodium Chloride) 50 mls @ 100 mls/hr IV Q24H [facility] Last Admin: 01/08/20 12:33 Dose: 100 mls/hr Documented by: Lorazepam (Ativan) 0.5 mg PO Q4H PRN PRN Reason: Anxiety Lorazepam (Ativan) 0.5 mg IVPUSH Q2H PRN PRN Reason: Anxiety Last Admin: 01/09/20 04:01 Dose: 0.5 mg Documented by: Magnesium Hydroxide (Milk Of Magnesia) 30 ml PO Q12H PRN PRN Reason: Constipation Methylprednisolone Sodium Succinate (Solu-Medrol) 62.5 mg IVPUSH Q8H [facility] Last Admin: 01/09/20 01:47 Dose: 62.5 mg Documented by: Morphine Sulfate (Morphine) 2 mg IVPUSH Q2H PRN PRN Reason: Pain (Severe 7-10)/Air Hunger Last Admin: 01/08/20 20:59 Dose: 2 mg Documented by: Ondansetron HCl (Zofran) 4 mg IV Q6H PRN PRN Reason: Nausea/Vomiting Ondansetron HCl (Zofran Odt) 4 mg PO Q6H PRN PRN Reason: Nausea able to take PO Senna/Docusate Sodium (Senna Plus) 1 tab PO BID PRN PRN Reason: Constipation Discontinued Medications Albuterol (Proventil Neb Soln) 2.5 mg NEB Q2H PRN PRN Reason: shortness of breath/wheezing Sodium Chloride (Normal Saline) 100 mls @ 4 mls/sec IV ASDIRECTED [facility] Stop: 01/08/20 12:00 Last Admin: 01/08/20 11:03 Dose: 4 mls/sec Documented by: Ceftriaxone Sodium 1 gm/ (Sodium Chloride) 50 mls @ 100 mls/hr IV Q24H [facility] Iopamidol (Isovue-370 (76%)) 55 ml IV . DIRECTED [facility] Stop: 01/08/20 12:00 Last Admin: 01/08/20 11:02 Dose: 100 ml Documented by: Lorazepam (Ativan) 0.5 mg IVPUSH ONETIME ONE Stop: 01/07/20 20:03 Last Admin: 01/07/20 20:20 Dose: 0.5 mg Documented by: Lorazepam (Ativan) 0.5 mg IVPUSH Q4H PRN PRN Reason: Nausea/Vomiting Last Admin: 01/08/20 10:27 Dose: 0.5 mg Documented by: Lorazepam (Ativan) 0.5 mg IVPUSH ONETIME ONE Stop: 01/08/20 12:14 Last Admin: 01/08/20 12:31 Dose: 0.5 mg Documented by: Methylprednisolone Sodium Succinate (Solu-Medrol) 125 mg IVPUSH ONETIME ONE Stop: 01/07/20 20:58 Last Admin: 01/07/20 21:33 Dose: 125 mg Documented by: Sodium Chloride (Saline Flush) 10 ml FLUSH ONETIME ONE Stop: 01/08/20 10:59 Last Admin: 01/08/20 11:02 Dose: 10 ml Documented by: - Exam Quality Assessment: Supplemental Oxygen General: Alert, Oriented, Cooperative, No Acute Distress Lungs: Decreased Breath Sounds (moderate impairment of exp air flow ). No: Normal Respiratory Effort (mild increased work of breathing ), Rhonchi, Wheezing Cardiovascular: Regular Rhythm, Tachycardia GI/Abdominal Exam: Soft, No Distention Extremities: No Pedal Edema. No: Increased Warmth Skin: Warm, Dry Psy/Mental Status: Alert, Normal Affect Sepsis Event Note - Evaluation Sepsis Screening Result: No Definite Risk - Focused Exam Vital Signs: Vital Signs Temp Pulse Resp BP Pulse Ox Pulse Ox 01/09/20 08:00 36.8 C 96 29 H 144/73 H 92 L 01/09/20 07:25 84 93 L 01/09/20 06:00 96 25 H 132/81 93 L 01/09/20 03:47 99 23 H 132/69 99 01/09/20 01:59 90 16 108/66 96 01/09/20 00:00 87 19 116/56 L 95 01/08/20 22:00 86 127/76 97 Date Exam was Performed: 01/09/20 Time Exam was Performed: 16:00 - Problem List & Annotations (1) Right middle lobe pneumonia SNOMED Code(s): 511173580 Code(s): J18.9 - PNEUMONIA, UNSPECIFIED ORGANISM Status: Acute Current Visit: Yes Qualifiers: Pneumonia type: due to unspecified organism Qualified Code(s): J18.9 - Pneumonia, unspecified organism (2) COPD exacerbation SNOMED Code(s): 508968281 Code(s): J44.1 - CHRONIC OBSTRUCTIVE PULMONARY DISEASE W (ACUTE) EXACERBATION Status: Acute Current Visit: Yes (3) Acute respiratory failure with hypoxia and hypercapnia SNOMED Code(s): 340991839 Code(s): J96.01 - ACUTE RESPIRATORY FAILURE WITH HYPOXIA; J96.02 - ACUTE RESPIRATORY FAILURE WITH HYPERCAPNIA Status: Acute Current Visit: No (4) Generalized anxiety disorder with panic attacks SNOMED Code(s): 92469663 Code(s): F41.1 - GENERALIZED ANXIETY DISORDER; F41.0 - PANIC DISORDER [EPISODIC PAROXYSMAL ANXIETY] Status: Chronic Current Visit: Yes (5) Chronic respiratory failure with hypoxia and hypercapnia SNOMED Code(s): 28959568, 599218360 Code(s): J96.11 - CHRONIC RESPIRATORY FAILURE WITH HYPOXIA; J96.12 - CHRONIC RESPIRATORY FAILURE WITH HYPERCAPNIA Status: Chronic Current Visit: Yes - Problem List Review Problem List Initiated/Reviewed/Updated: Yes - My Orders Last 24 Hours: My Active Orders 01/08/20 09:00 Enoxaparin [Lovenox] 40 mg SUBCUT DAILY 01/08/20 09:56 LORazepam [Ativan] 0.5 mg PO Q4H PRN 01/08/20 09:57 RT Aerosol Therapy [RC] ASDIRECTED 01/08/20 10:00 Budesonide [Pulmicort] 0.5 mg NEB BIDRT Citalopram [Celexa] 10 mg PO DAILY methylPREDNISolone Sod Succ [Solu-MEDROL] 62.5 mg IVPUSH Q8H 01/08/20 10:40 Resuscitation Status Routine 01/08/20 12:14 LORazepam [Ativan] 0.5 mg IVPUSH Q2H PRN 01/08/20 13:00 cefTRIAXone [Rocephin] 1 gm Sodium Chloride 0.9% [Normal Saline] 50 ml IV Q24H 01/08/20 Dinner Mechanical Soft Diet [DIET] 01/09/20 09:51 Consult to Dietary [Consult to Instruction Assistant Principal] [CONS] Routine 01/09/20 09:52 PT Evaluation and Treatment [CONS] Routine 01/10/20 05:00 BASIC METABOLIC PANEL,BMP [CHEM] Timed BLOOD GAS ARTERIAL [BG] Timed CBC W/O DIFF,HEMOGRAM [HEME] Timed (1) - Plan Plan:: ASSESSMENT AND PLAN - Right middle lobe pneumonia-complicated by acute exacerbation of COPD and acute on chronic respiratory failure with both hypoxia and hypercapnia. She has made steady improvement. She is requiring less noninvasive ventilation and doing better with just nasal cannula supplementation of her oxygen. No evidence for pulmonary embolism. The CT scan did confirm right middle lobe pneumonia. -Noninvasive ventilation as tolerated -Repeat blood gases in the morning -Scheduled and as needed nebulizers -Solu-Medrol every 8 hours -Antibiotic coverage with ceftriaxone and doxycycline -Discussion with her janitorial account manager when she is available Generalized anxiety disorder with panic attacks-significant anxiety history. Doing well with her anxiety so far. -Lorazepam as needed -Restart citalopram Chronic respiratory failure with hypoxia and hypercapnia (J96.11)-she has oxygen dependent COPD and the plan is for her to go home with a noninvasive ventilation system. Maintenance issues - - DVT prophylaxis -enoxaparin - GI prophylaxis -not indicated - Nutrition -mechanical soft - Lee catheter -not currently indicated but could be considered if condition declines Disposition -I would anticipate discharge home tomorrow if she remains stable overnight Primary care physician -Dr. Dedra Masters M.D.
[2020-01-09] MEDS: cefTRIAXone 1 GM in Sodium Chloride 0.9% 50 ML IV SCH (12:39)
[2020-01-09] MEDS: Morphine 2 MG/ML SYRINGE IVPUSH PRN ×2 (20:08→22:49)
[2020-01-10] MEDS: methylPREDNISolone Sodium Succinate 125 MG/2 ML SDV IVPUSH SCH ×2 (01:37→09:15)
[2020-01-10] MEDS: Morphine 2 MG/ML SYRINGE IVPUSH PRN (04:11)
[2020-01-10] MEDS: Budesonide 0.5 MG/2 ML Neb Susp NEB SCH (06:58)
[2020-01-10] MEDS: Albuterol/Ipratropium 3.0-0.5 MG/3 ML Neb Soln NEB SCH (06:59)
[2020-01-10 08:15] VITALS: BP 140/97; PULSE 107
[2020-01-10] MEDS: Citalopram 10 MG Tab PO SCH (08:21)
[2020-01-10] MEDS: Doxycycline 100 MG in Sodium Chloride 0.9% 100 ML IV SCH (08:22)
[2020-01-10] MEDS: Sodium Chloride 0.9% 1,000 ML IV SCH (08:26)
[2020-01-10] MEDS: Enoxaparin 40 MG/0.4 ML Syringe SUBCUT SCH (08:27)
[2020-01-10] MEDS ORDERED: Benzocaine/Cetylpyridinium/Menthol Lozenge MUCMEM PRN (09:54)
--- NOTE | 2020-01-10 10:03 | PCM.DCSUM1 ---
Discharge Summary - Hospital Course Brief History: 59-year-old female with history of tobacco dependence and severe oxygen dependent COPD with chronic respiratory failure who presented by ambulance with acute worsening of her shortness of breath. She was admitted for management of a COPD exacerbation and acute on chronic respiratory failure secondary to a right lung pneumonia. Diagnosis: Stroke: No - Discharge Data Discharge Date: 01/10/20 Discharge Disposition: Home, W Home Health Agency 06 Condition: Fair - Referral to Home Health Date of Face to Face Encounter: 01/10/20 Reason for Homebound Status: severe COPD, dyspnea with minimal exertion Primary Care Physician: PCP None Skilled Need: Nursing, PT - Discharge Diagnosis/Problem(s) (1) Right middle lobe pneumonia SNOMED Code(s): 268971230 ICD Code: J18.9 - PNEUMONIA, UNSPECIFIED ORGANISM Status: Acute Qualifiers: Pneumonia type: due to unspecified organism Qualified Code(s): J18.9 - Pneumonia, unspecified organism (2) COPD exacerbation SNOMED Code(s): 125580803 ICD Code: J44.1 - CHRONIC OBSTRUCTIVE PULMONARY DISEASE W (ACUTE) EXACERBATION Status: Acute (3) Acute respiratory failure with hypoxia and hypercapnia SNOMED Code(s): 873353357 ICD Code: J96.01 - ACUTE RESPIRATORY FAILURE WITH HYPOXIA; J96.02 - ACUTE RESPIRATORY FAILURE WITH HYPERCAPNIA Status: Acute (4) Generalized anxiety disorder with panic attacks SNOMED Code(s): 13188342 ICD Code: F41.1 - GENERALIZED ANXIETY DISORDER; F41.0 - PANIC DISORDER [EPISODIC PAROXYSMAL ANXIETY] Status: Chronic (5) Chronic respiratory failure with hypoxia and hypercapnia SNOMED Code(s): 88132289, 609389982 ICD Code: J96.11 - CHRONIC RESPIRATORY FAILURE WITH HYPOXIA; J96.12 - CHRONIC RESPIRATORY FAILURE WITH HYPERCAPNIA Status: Chronic - Patient Summary/Data Consults: Consultations 01/09/20 09:51 Consult to Dietary [Consult to Programmer Numerical Control] [CONS] Routine Comment: Physician Instructions: Quantity: Reason for Consult: BMI <15, please provide high calorie food recs Special Instructions: has severe copd, eating limited by breathing 01/09/20 09:52 PT Evaluation and Treatment [CONS] Routine Please Evaluate and Treat. PT Reason for Consult: Strengthening This query below is only for informational purposes and is not editable. Admission Diagnosis/Problem: Acute exacerbation of chronic obstructive airways disease Hospital Course: Jenny presented to the emergency room by ambulance with acute on chronic shortness of breath. Work-up in the emergency room was suggestive of a right middle lobe pneumonia as well as acute on chronic respiratory failure with both hypoxia and severe hypercapnia. She was placed on noninvasive ventilation in the emergency room. She was empirically started on doxycycline and received a dose of Solu-Medrol. She was admitted to the intensive care unit with the noninvasive ventilation. Overnight following admission we did see some improvement in her respiratory status with an improvement in her PCO2 and pH. She was more alert and interactive the next morning. We did complete a CT scan of the chest to rule out pulmonary embolism and this did not show evidence for pulmonary embolism but did document a right middle lobe pneumonia. I did expand her antibiotic coverage to include ceftriaxone. She did not have a fever and white count was normal. She tolerated the IV steroids well so we did continue these. For the next 24 hours we saw further improvement in her respiratory status. She has had better air movement. Her PCO2 has continued to improve and is now down into the 80s. pH is on the low side of normal. We had several discussions about outpatient management. She has been having difficulty with her respiratory status and this has caused difficulty with eating. I did offer her a noninvasive ventilation unit that she could use at home to help stabilize her respiratory status. Once this happens hopefully she can improve her appetite. We continued antibiotics and are noninvasive ventilation and an additional night. Her PCO2 is now down in the 70s and her pH is just below 7.4. She feels well and is interested in going home. We have set her up for the home noninvasive ventilation system. She will be on antibiotics for it several more days following hospital discharge. She is on good management for her COPD and does have oxygen at home. She has follow-up with her starcher and tenter range feeder and primary care next week. We did not continue steroids after hospital discharge because she has an allergy to prednisone. She did tolerate the Solu-Medrol well. We did have several conversations about her CODE STATUS and about her wishes regarding both CPR and resuscitation. Initially she wanted to be a DO NOT RESUSCITATE and DO NOT INTUBATE. After our second conversation she wishes to be a full code. She is agreeable to short-term intubation but does not want to have a tracheostomy if her condition should warrant that. - Patient Instructions Diet: Regular Diet as Tolerated Activity: As Tolerated Showering/Bathing: May Shower Notify Provider of: Fever Other/Special Instructions: 1. You were in the hospital for management of a right middle lobe pneumonia that resulted in an exacerbation of your COPD as well as acute on chronic respiratory failure with decreased oxygen and elevated carbon dioxide levels in your blood. Your condition has been improving with treatment provided in the hospital. I do recommend ongoing antibiotic therapy with 2 different antibiotics. Please take both doxycycline and Ceftin ear twice daily with food for 7 more doses. Your first dose for both of these medications will be tonight. At baseline, you have severe COPD that requires oxygen. We have set up a home ventilator system to help reduce your work of breathing and give your body a chance to rest while you sleep. 2. Continue your usual home medications as previously prescribed. 3. Follow up with primary care and Pulmonology as scheduled. 4. I have placed a referral to home health care. They will provide nursing and physical therapy services to help ease your transition home. 5. [facility] will be meeting you at home this afternoon to set up your home ventilation system. - Discharge Plan *PRESCRIPTION DRUG MONITORING PROGRAM REVIEWED*: Not Applicable *COPY OF PRESCRIPTION DRUG MONITORING REPORT IN PATIENT DANIKA: Not Applicable Prescriptions/Med Rec: Cefdinir [Omnicef] 300 mg PO BID #7 cap Doxycycline [Vibramycin] 100 mg PO BID #7 cap Home Medications: Home Meds Albuterol [Ventolin HFA] 2 puff INH Q4H PRN 07/01/14 [History] Albuterol/Ipratropium [DuoNeb 3.0-0.5 MG/3 ML] 1 dose INH QID 10/02/14 [History] ALPRAZolam [Alprazolam] 1 tab PO TID PRN 12/09/19 [History] Budesonide [Pulmicort] 0.5 mg IH BID 12/09/19 [History] Fluticasone Propion/Salmeterol [Fluticasone-Salmeterol 500-50] 1 dose INH BID 12/09/19 [History] Revefenacin [Yupelri] 175 mcg IN DAILY 12/09/19 [History] Citalopram [Citalopram HBr] 10 mg PO DAILY #30 tab 12/11/19 [Rx] PARoxetine [Paxil] 10 mg PO DAILY 01/07/20 [History] Cefdinir [Omnicef] 300 mg PO BID #7 cap 01/10/20 [Rx] Doxycycline [Vibramycin] 100 mg PO BID #7 cap 01/10/20 [Rx] Oxygen Therapy Mode: Nasal Cannula Oxygen Flow Rate (L/min): 2 Patient Handouts: Chronic Obstructive Pulmonary Disease Exacerbation, Chronic Respiratory Failure Referrals: Loyda Moscoso PA [Physician Impregnating Tank Operator] - 01/15/20 1:30 pm (Please arrive 15 minutes shila to register for your appointment. YOUR APPOINTMENT IS AT THE [facility].) - Discharge Summary/Plan Comment DC Time >30 min.: Yes (45-home ventilation system and home care) - Patient Data Vitals - Most Recent: Last Vital Signs Temp 36.9 C 01/10/20 08:00 Pulse 107 H 01/10/20 08:00 Resp 16 01/10/20 08:00 BP 140/97 H 01/10/20 08:00 Pulse Ox 96 01/10/20 08:00 Weight - Most Recent: 78.2 kg I&O - Last 24 hours: Intake & Output 01/09/20 01/10/20 01/10/20 22:59 06:59 14:59 Intake Total 1351 880 Output Total 500 250 Balance 851 630 Lab Results - Last 24 hrs: Laboratory Results - last 24 hr 01/10/20 01/10/20 01/10/20 Range/Units 05:30 05:30 05:30 WBC 6.6 (4.5-11.0) K/uL RBC 3.70 (3.30-5.50) M/uL Hgb 11.0 L (12.0-15.0) g/dL Hct 36.6 (36.0-48.0) % POC Hct 34 L (36-48) % MCV 99 H (80-98) fL MCH 30 (27-31) pg MCHC 30 L (32-36) % Plt Count 203 (150-400) K/uL Sample Site Lt radial POC ABG pH 7.36 (7.35-7.45) POC ABG pCO2 74.1 H* (35-45) mmHG POC ABG pO2 63 L (80-105) mmHg POC ABG HCO3 42.0 H (22.0-26.0) mmol/L POC ABG Total CO2 44 H (23-27) mmol/L POC ABG O2 Sat 89 L (95-98) % POC ABG Base Excess 17 H (-2-3) mmol/L Henrik Test Pass O2 Delivery Device Nasal cannula POC O2 Flow Rate 1 POC Sodium 141 (140-148) mmol/L Sodium 145 (140-148) mmol/L POC Potassium 4.0 (3.5-4.9) mmol/L Potassium 4.2 (3.6-5.2) mmol/L Chloride 104 (100-108) mmol/L Carbon Dioxide 40 H (21-32) mmol/L Anion Gap 5.2 (5.0-14.0) mmol/L BUN 13 (7-18) mg/dL Creatinine 0.5 L (0.6-1.0) mg/dL Est Cr Clr Drug Dosing 94.98 mL/min Estimated GFR (MDRD) > 60 (>60) Glucose 144 H (74-106) mg/dL Calcium 9.0 (8.5-10.1) mg/dL POC WB Ioniz Calcium 1.31 (1.12-1.32) mmol/L Med Orders - Current: Current Medications Acetaminophen (Tylenol) 650 mg PO Q4H PRN PRN Reason: Pain (Mild 1-3)/fever Last Admin: 01/09/20 23:58 Dose: 650 mg Documented by: Albuterol (Proventil Neb Soln) 2.5 mg NEB Q1H PRN PRN Reason: shortness of breath/wheezing Last Admin: 01/08/20 05:36 Dose: 2.5 mg Documented by: Albuterol/Ipratropium (Duoneb 3.0-0.5 Mg/3 Ml) 3 ml NEB QIDRT [facility] Last Admin: 01/10/20 06:59 Dose: 3 ml Documented by: Benzocaine/Menthol (Cepacol Sore Throat) 1 lozenge MUCMEM Q2H PRN PRN Reason: Sore Throat Budesonide (Pulmicort) 0.5 mg NEB BIDRT [facility] Last Admin: 01/10/20 06:58 Dose: 0.5 mg Documented by: Cefdinir (Omnicef) 300 mg PO ONETIME ONE Stop: 01/10/20 10:31 Citalopram Hydrobromide (Celexa) 10 mg PO DAILY [facility] Last Admin: 01/10/20 08:21 Dose: 10 mg Documented by: Enoxaparin Sodium (Lovenox) 40 mg SUBCUT DAILY [facility] Last Admin: 01/10/20 08:27 Dose: 40 mg Documented by: Doxycycline Hyclate 100 mg/ (Sodium Chloride) 100 mls @ 100 mls/hr IV Q12H [facility] Last Admin: 01/10/20 08:22 Dose: 100 mls/hr Documented by: Sodium Chloride (Normal Saline) 1,000 mls @ 75 mls/hr IV ASDIRECTED [facility] Last Admin: 01/10/20 08:26 Dose: 75 mls/hr Documented by: Lorazepam (Ativan) 0.5 mg PO Q4H PRN PRN Reason: Anxiety Lorazepam (Ativan) 0.5 mg IVPUSH Q2H PRN PRN Reason: Anxiety Last Admin: 01/09/20 23:59 Dose: 0.5 mg Documented by: Magnesium Hydroxide (Milk Of Magnesia) 30 ml PO Q12H PRN PRN Reason: Constipation Methylprednisolone Sodium Succinate (Solu-Medrol) 62.5 mg IVPUSH Q8H [facility] Last Admin: 01/10/20 09:15 Dose: 62.5 mg Documented by: Morphine Sulfate (Morphine) 2 mg IVPUSH Q2H PRN PRN Reason: Pain (Severe 7-10)/Air Hunger Last Admin: 01/10/20 04:11 Dose: 2 mg Documented by: Ondansetron HCl (Zofran) 4 mg IV Q6H PRN PRN Reason: Nausea/Vomiting Ondansetron HCl (Zofran Odt) 4 mg PO Q6H PRN PRN Reason: Nausea able to take PO Senna/Docusate Sodium (Senna Plus) 1 tab PO BID PRN PRN Reason: Constipation Discontinued Medications Albuterol (Proventil Neb Soln) 2.5 mg NEB Q2H PRN PRN Reason: shortness of breath/wheezing Sodium Chloride (Normal Saline) 100 mls @ 4 mls/sec IV ASDIRECTED [facility] Stop: 01/08/20 12:00 Last Admin: 01/08/20 11:03 Dose: 4 mls/sec Documented by: Ceftriaxone Sodium 1 gm/ (Sodium Chloride) 50 mls @ 100 mls/hr IV Q24H [facility] Ceftriaxone Sodium 1 gm/ (Sodium Chloride) 50 mls @ 100 mls/hr IV Q24H [facility] Last Admin: 01/09/20 12:39 Dose: 100 mls/hr Documented by: Iopamidol (Isovue-370 (76%)) 55 ml IV . DIRECTED JAQUAN Stop: 01/08/20 12:00 Last Admin: 01/08/20 11:02 Dose: 100 ml Documented by: Lorazepam (Ativan) 0.5 mg IVPUSH ONETIME ONE Stop: 01/07/20 20:03 Last Admin: 01/07/20 20:20 Dose: 0.5 mg Documented by: Lorazepam (Ativan) 0.5 mg IVPUSH Q4H PRN PRN Reason: Nausea/Vomiting Last Admin: 01/08/20 10:27 Dose: 0.5 mg Documented by: Lorazepam (Ativan) 0.5 mg IVPUSH ONETIME ONE Stop: 01/08/20 12:14 Last Admin: 01/08/20 12:31 Dose: 0.5 mg Documented by: Methylprednisolone Sodium Succinate (Solu-Medrol) 125 mg IVPUSH ONETIME ONE Stop: 01/07/20 20:58 Last Admin: 01/07/20 21:33 Dose: 125 mg Documented by: Sodium Chloride (Saline Flush) 10 ml FLUSH ONETIME ONE Stop: 01/08/20 10:59 Last Admin: 01/08/20 11:02 Dose: 10 ml Documented by:
[2020-01-10] MEDS ORDERED: Cefdinir 300 MG Cap PO ONE (10:30)
== END 2020-01-10 10:47 | disposition home health service (06) | DRG 193 ==
LOC: JP.ED 18:32 → JP.ICU 20:20
PROVIDERS: ADMIT Internal Medicine; ATTEND Internal Medicine
PROC: 5A09457 Assistance with Respiratory Ventilation, 24-96 Consecutive Hours, Continuous Positive Airway Pressure (ICD-10-PCS; principal; 2020-01-08)
DX: J18.9 Pneumonia, unspecified organism (principal); J96.21 Acute and chronic respiratory failure with hypoxia; J96.22 Acute and chronic respiratory failure with hypercapnia; J44.0 Chronic obstructive pulmonary disease with (acute) lower respiratory infection; F41.1 Generalized anxiety disorder; F41.0 Panic disorder [episodic paroxysmal anxiety]; Z66 Do not resuscitate; M81.0 Age-related osteoporosis without current pathological fracture; F32.9 Major depressive disorder, single episode, unspecified; Z88.1 Allergy status to other antibiotic agents; Z88.0 Allergy status to penicillin; Z88.8 Allergy status to other drugs, medicaments and biological substances; Z79.899 Other long term (current) drug therapy; Z87.891 Personal history of nicotine dependence; Z99.81 Dependence on supplemental oxygen
CPT/HCPCS: 36415; 36600; 71045; 71045-26; 71275; 71275-26; 80048; 80053; 82803; 84145; 84484; 85025; 85027; 86140; 94640; 94660; 97110-GP; 97162-GP; 99232; 99239; 99285-25; A9270-GY; J0696; J1650; J2060; J2270; J2930; J3490; J7030; J7050; J7620-GY; Q9967

== ENCOUNTER 2020-01-22 21:02 | Inpatient (IN) | payer MEDICAID ==
[2020-01-22] MEDS ORDERED: methylPREDNISolone Sodium Succinate 125 MG/2 ML SDV IVPUSH ONE (21:15)
--- NOTE | 2020-01-22 21:18 | EDM.PDOC ---
ED HPI GENERAL MEDICAL PROBLEM - General Stated Complaint: [facility] Time Seen by Provider: 01/22/20 21:02 Source of Information: Reports: Patient, EMS History Limitations: Reports: Physical Impairment - History of Present Illness INITIAL COMMENTS - FREE TEXT/NARRATIVE: 59-year-old female with severe end-stage COPD who becomes weak and hypercapnic on a cycling basis. She was seen 2 weeks ago with a very high CO2, needed hospitalization for several days to treat a small right pneumonia, significant hypercapnia and respiratory failure. She responds fairly well to BiPAP but does not tolerate it well. Today she was doing okay until late this afternoon when she became very lethargic so her family called the ambulance. She denies any pain. She claims she has not been smoking since her discharge, no fevers or chills. She looks very weak, similar to her presentation 2 weeks ago but she is more responsive and answering questions more appropriately this time. Onset: Gradual (Symptoms have worsened over the past several hours) Associated Symptoms: Reports: Cough, Malaise, Shortness of Breath, Weakness. Denies: Chest Pain, Headaches - Related Data Allergies Allergy/AdvReac Type Severity Reaction Status Date / Time erythromycin lactobionate Allergy Severe Anaphylactic Verified 01/22/20 21:59 [From Erythrocin] Shock amitriptyline Allergy Anaphylactic Verified 01/22/20 21:59 Shock azithromycin [From Zithromax] Allergy Anaphylactic Verified 01/22/20 21:59 Shock buspirone [From BuSpar] Allergy Anaphylactic Verified 01/22/20 21:59 Shock clindamycin Allergy Anaphylactic Verified 01/22/20 21:59 Shock levofloxacin [From Levaquin] Allergy Anaphylactic Verified 01/22/20 21:59 Shock Penicillins Allergy Anaphylactic Verified 01/22/20 21:59 Shock prednisone Allergy Anaphylactic Verified 01/22/20 21:59 Shock varenicline Allergy Anaphylactic Verified 01/22/20 21:59 Shock varenicline tartrate Allergy Swelling Verified 01/22/20 21:59 [From Chantix] Home Meds: Home Meds Albuterol [Ventolin HFA] 2 puff INH Q4H PRN 07/01/14 [History] Albuterol/Ipratropium [DuoNeb 3.0-0.5 MG/3 ML] 1 dose INH QID 10/02/14 [History] ALPRAZolam [Alprazolam] 1 tab PO TID PRN 12/09/19 [History] Budesonide [Pulmicort] 0.5 mg IH BID 12/09/19 [History] Fluticasone Propion/Salmeterol [Fluticasone-Salmeterol 500-50] 1 dose INH BID 12/09/19 [History] Revefenacin [Yupelri] 175 mcg IN DAILY 12/09/19 [History] Citalopram [Citalopram HBr] 10 mg PO DAILY #30 tab 12/11/19 [Rx] PARoxetine [Paxil] 10 mg PO DAILY 01/07/20 [History] Cefdinir [Omnicef] 300 mg PO BID #7 cap 01/10/20 [Rx] Doxycycline [Vibramycin] 100 mg PO BID #7 cap 01/10/20 [Rx] Past Medical History Respiratory History: Reports: COPD, Pneumonia, Recurrent, SOB Gastrointestinal History: Reports: Other (See Below) Other Gastrointestinal History: underweight [employer]DER History: Reports: , Spontaneous Musculoskeletal History: Reports: Fracture, Osteoporosis Neurological History: Reports: Seizure Psychiatric History: Reports: Anxiety, Depression, Emotional Problems, Panic Attack, Psych Hospitalization(s), Other (See Below) Other Psychiatric History: conversion disorder Endocrine/Metabolic History: Reports: Vitamin D Deficiency - Infectious Disease History Infectious Disease History: Reports: Chicken Pox - Past Surgical History HEENT Surgical History: Reports: Naso-Sinus Surgery Other HEENT Surgeries/Procedures: broken nose Musculoskeletal Surgical History: Reports: Arthroscopic Knee Social & Family History - Family History Family Medical History: Unobtainable - Caffeine Use Caffeine Use: Reports: None ED ROS GENERAL - Review of Systems Review Of Systems: See Below Constitutional: Reports: Malaise, Decreased Appetite. Denies: Fever, Chills Respiratory: Reports: Shortness of Breath, Cough Endocrine: Reports: Fatigue GI/Abdominal: Denies: Nausea, Vomiting Skin: Reports: Bruising (Tends to bruise easily) Neurological: Reports: Weakness Psychiatric: Reports: Depression ED EXAM, GENERAL - Physical Exam Exam: See Below Exam Limited By: Physical Impairment General Appearance: Lethargic (Patient is lethargic but arousable and answers questions appropriately but then falls back asleep) Eye Exam: Bilateral Eye: EOMI Head: Atraumatic Respiratory/Chest: Respiratory Distress, Decreased Breath Sounds, Rales (She does have some rales in the right base) Cardiovascular: Regular Rate, Rhythm. No: Tachycardia GI/Abdominal: Soft, Non-Tender Extremities: Other (Extremities are cachectic with scattered bruising) Neurological: Inattentive, Slow to Respond Psychiatric: Depressed Mood, Flat Affect Skin Exam: Warm, Dry, Other (Scattered bruises) Course - Vital Signs Last Recorded V/S: Last Vital Signs Temp 97 F 01/22/20 23:34 Pulse 96 01/22/20 23:34 Resp 20 01/22/20 23:34 BP 114/47 L 01/22/20 23:34 Pulse Ox 95 01/22/20 23:34 - Orders/Labs/Meds Orders: Active Orders 24 hr Category Date Time Status Chest 1V Frontal [CR] Stat Exams 01/22/20 21:06 Taken Medication Orders Albuterol (Ventolin Hfa) 0 gm INH Q4H PRN PRN Reason: Shortness of Breath Albuterol/Ipratropium (Duoneb 3.0-0.5 Mg/3 Ml) 3 ml NEB QID [facility] Alprazolam (Xanax) 0.25 mg PO TID PRN PRN Reason: Anxiety Last Admin: 01/22/20 23:12 Dose: 0.0625 mg Documented by: MARYLIN Budesonide (Pulmicort) 0.5 mg NEB BID [facility] Doxycycline Hyclate (Vibramycin) 100 mg PO BID [facility] Glycopyrrolate (Seebri Neohaler) 15.6 mcg IH BID [facility] Ceftriaxone Sodium 1 gm/ (Sodium Chloride) 50 mls @ 100 mls/hr IV Q24H [facility] Last Admin: 01/22/20 23:53 Dose: 100 mls/hr Documented by: MARYLIN Methylprednisolone Sodium Succinate (Solu-Medrol) 67.5 mg IVPUSH Q8H [facility] Pantoprazole Sodium (Protonix Iv) 40 mg IVPUSH Q24H [facility] Last Admin: 01/22/20 23:52 Dose: 40 mg Documented by: MARYLIN Paroxetine HCl (Paxil) 10 mg PO DAILY [facility] Fluticasone/Salmeterol (Fluticasone-Salmeterol 232-14 Mcg Powder Inha) 1 puff INH BID [facility] Labs: Laboratory Tests 01/22/20 01/22/20 01/22/20 Range/Units 21:07 21:11 21:17 WBC 7.7 (4.5-11.0) K/uL RBC 3.83 (3.30-5.50) M/uL Hgb 11.5 L (12.0-15.0) g/dL Hct 40.5 (36.0-48.0) % MCV 106 H (80-98) fL MCH 30 (27-31) pg MCHC 28 L (32-36) % Plt Count 273 (150-400) K/uL Neut % (Auto) 92 H (36-66) % Lymph % (Auto) 4 L (24-44) % [place] % (Auto) 4 (2-6) % Eos % (Auto) 0 L (2-4) % Baso % (Auto) 0 (0-1) % Puncture Site Rt radial ABG pH 7.237 L (7.350-7.450) ABG pCO2 130.0 H* (35.0-42.0) mmHg ABG pO2 76.8 (75.0-100.0) mmHg ABG HCO3 53.2 H (22.0-26.0) mmol/L ABG Total CO2 50.4 H (21.0-25.0) mmol/L ABG O2 Saturation 93.3 L (95.0-98.0) % ABG O2 Content 14.8 L (15.0-23.0) %vol ABG Base Excess 20.9 mm/L ABG Hemoglobin 11.4 L (12.0-16.0) g/dL ABG Oxyhemoglobin 91.4 % ABG Carboxyhemoglobin 1.1 (0.0-1.6) % ABG Methemoglobin 0.9 % Henrik Test Pass O2 Delivery Device Nasal cannula Oxygen Flow Rate 1.0 L Sodium 150 H (140-148) mmol/L Potassium 4.3 (3.6-5.2) mmol/L Chloride 101 (100-108) mmol/L Carbon Dioxide > 45 H (21-32) mmol/L Anion Gap 8.3 (5.0-14.0) mmol/L BUN 25 H D (7-18) mg/dL Creatinine 0.6 (0.6-1.0) mg/dL Est Cr Clr Drug Dosing 54.22 mL/min Estimated GFR (MDRD) > 60 (>60) Glucose 135 H (74-106) mg/dL Calcium 9.5 (8.5-10.1) mg/dL Meds: Medications Generic Name Dose Route Start Last Admin Trade Name Naveen PRN Reason Stop Dose Admin Albuterol 0 gm 01/22/20 22:28 Ventolin Hfa INH Q4H PRN Shortness of Breath Albuterol/Ipratropium 3 ml 01/23/20 06:00 Duoneb 3.0-0.5 Mg/3 Ml NEB QID JAQUAN Alprazolam 0.25 mg 01/22/20 22:28 01/22/20 23:12 Xanax PO 0.0625 mg TID PRN Administration Anxiety Budesonide 0.5 mg 01/23/20 09:00 Pulmicort NEB BID JAQUAN Doxycycline Hyclate 100 mg 01/23/20 09:00 Vibramycin PO BID JAQUAN Glycopyrrolate 15.6 mcg 01/23/20 09:00 Seebri Neohaler IH BID JAQUAN Ceftriaxone Sodium 1 gm/ 50 mls @ 100 mls/hr 01/22/20 23:00 01/22/20 23:53 Sodium Chloride IV 100 mls/hr Q24H JAQUAN Administration Methylprednisolone Sodium Succinate 67.5 mg 01/23/20 08:00 Solu-Medrol IVPUSH Q8H JAQUAN Pantoprazole Sodium 40 mg 01/22/20 22:45 01/22/20 23:52 Protonix Iv IVPUSH 40 mg Q24H JAQUAN Administration Paroxetine HCl 10 mg 01/23/20 09:00 Paxil PO DAILY JAQUAN Fluticasone/Salmeterol 1 puff 01/23/20 09:00 Fluticasone-Salmeterol 232-14 Mcg Powder Inha INH BID JAQUAN Discontinued Medications Generic Name Dose Route Start Last Admin Trade Name Naveen PRN Reason Stop Dose Admin Methylprednisolone Sodium Succinate 125 mg 01/22/20 21:15 01/22/20 22:30 Solu-Medrol IVPUSH 01/22/20 21:16 125 mg ONETIME ONE Administration Methylprednisolone Sodium Succinate 67.5 mg 01/22/20 22:45 01/22/20 22:53 Solu-Medrol IVPUSH Not Given Q8H JAQUAN - Re-Assessments/Exams Free Text/Narrative Re-Assessment/Exam: 01/22/20 21:18 An IV was started, patient will be given 125 mg of Solu-Medrol and respiratory therapy consulted to begin BiPAP after ABGs, CBC, BMP and portable chest x-ray are obtained. She will need admission until improved. 01/22/20 21:34 PCO2 is 130 and pH is 7.23. These are levels that are not as bad as her recent hospitalization explaining her somewhat increased level of mental awareness. Her 1 view chest x-ray still shows some remnant of the right lower lobe pneumonia but not worsening. White count is normal, labs are reassuring other than the ABGs. RT was consulted to initiate BiPAP and Dr. Cantu accepted her admission to the ICU. Departure - Departure Time of Disposition: 22:49 Disposition: Admitted As Inpatient 66 Condition: Serious Clinical Impression: Chronic respiratory failure with hypoxia and hypercapnia Hypercapnic respiratory failure Qualifiers: Chronicity: acute on chronic Qualified Code(s): J96.22 - Acute and chronic respiratory failure with hypercapnia - Discharge Information Sepsis Event Note (ED) - Focused Exam Vital Signs: Vital Signs Temp Pulse Resp BP Pulse Ox 01/22/20 21:21 77 18 144/66 H 88 L 01/22/20 21:08 95.5 F L 94 30 H 131/63 98 - My Orders Last 24 Hours: My Active Orders 01/22/20 21:06 Chest 1V Frontal [CR] Stat - Assessment/Plan Last 24 Hours: My Active Orders 01/22/20 21:06 Chest 1V Frontal [CR] Stat
[2020-01-22] MEDS ORDERED: Albuterol 8 GM Inhaler INH PRN (22:28)
[2020-01-22] MEDS ORDERED: Pantoprazole 40 MG Vial IVPUSH SCH (22:45)
[2020-01-22] MEDS ORDERED: methylPREDNISolone Sodium Succinate 125 MG/2 ML SDV IVPUSH SCH (22:45)
[2020-01-22] MEDS: ALPRAZolam 0.25 MG Tab PO PRN (23:12)
[2020-01-22] MEDS: cefTRIAXone 1 GM in Sodium Chloride 0.9% 50 ML IV SCH (23:53)
[2020-01-23] MEDS ORDERED: Albuterol/Ipratropium 3.0-0.5 MG/3 ML Neb Soln NEB PRN (00:38)
[2020-01-23] MEDS: ALPRAZolam 0.25 MG Tab PO PRN ×3 (01:09→18:01)
--- NOTE | 2020-01-23 01:28 | HP ---
IDENTIFYING DATA: Jenny Howard is a 59-year-old female from [place], [place]. CHIEF COMPLAINT: A history of advanced COPD with acute respiratory failure and hypercapnia. HISTORY OF PRESENT ILLNESS: Adult female with a history of end-stage COPD with ongoing tobacco use, had been hospitalized approximately 3 weeks ago with marked hypercapnia and obtunded state. She responded to therapies with BiPAP, supportive therapy, IV Solu-Medrol, and antibiotic therapy to treat respiratory failure tied to noted right lower lobe pneumonia. On stabilization, she was discharged to home with instructions to follow up with primary caregiver and Pulmonary Medicine specialist and continue with dual antibiotic therapy with prescriptions for doxycycline and cefdinir provided. She also had agreed to consider home BiPAP therapy. As noted, she has not been seen for followup review by her outpatient physician providers. Additionally, BiPAP therapy has not yet been initiated and antibiotic therapies were dispensed by pharmacy, but not self administered. Family also notes that use of inhaled therapies have been sporadic. With increasing lethargy and weakness, she was returned to the emergency room at family's request, and is now admitted for treatment of acute respiratory failure with recurring hypercapnia. She has no reports of obvious fever. Immunization status is currently unknown. PAST MEDICAL HISTORY: Chronic obstructive pulmonary disease with recurrent hospitalizations for COPD exacerbation as well as pneumonia. Additionally, she has a history of chronic musculoskeletal pain with osteoporosis and fractures. She has a reported history of panic attacks, agoraphobia, chronic depression with anxiety. PREVIOUS SURGERIES: By record review indicate nasal surgery following a fracture as well as arthroscopic knee surgery. ALLERGIES: REPORTEDLY INCLUDE ERYTHROMYCIN, AMITRIPTYLINE, AZITHROMYCIN, BUSPIRONE, CLINDAMYCIN, LEVOFLOXACIN, PENICILLIN, PREDNISONE, CHANTIX WITH MEDICAL RECORD INDICATING ANAPHYLACTIC REACTION TO ALL OF THESE AGENTS. SHE HAS USED IV SOLU-MEDROL WITHOUT UNUSUAL EVENT AND HAS TOLERATED CEPHALOSPORIN ANTIBIOTIC THERAPY. CURRENT HOME DISPENSED MEDICATIONS: Include albuterol metered-dose inhaler 2 puffs q.4 hours p.r.n., DuoNebs 1 q.i.d., alprazolam 1 tablet 0.25 mg t.i.d., budesonide 0.5 mg nebulizers b.i.d., albuterol 500/50 1 whiff b.i.d., revefenacin 175 mcg inhaled daily, paroxetine 10 mg daily. Additionally, recent prescriptions have included citalopram 10 mg daily, cefdinir 300 mg b.i.d. x 3-1/2 days and doxycycline 100 mg b.i.d. x 3-1/2 days. She also has a recent prescribed course of cephalexin provided by Pulmonary Medicine, not yet initiated. HABITS: Continues with tobacco use. No noted alcohol use reported at present. She is cachectic and malnourished secondary to poor caloric intake. IMMUNIZATIONS: Records indicate pneumococcal vaccine in 2012, influenza vaccine in 2018 and Tdap in 2012. No records of more recent administration. SOCIAL HISTORY: Residing with her in their [place] residence. With a lethargic, obtunded state, she is unable to provide additional factual information. and extended family are not present at this time. REVIEW OF SYSTEMS: NEUROLOGIC: No reported history of strokes. Generalized weakness noted with lethargy secondary to hypercapnia. CARDIAC: No noted history of hypertension, diabetes, congenital heart disease, [place] or congestive heart failure. GASTROINTESTINAL: No reports of dyspepsia, hepatitis or jaundice. Bowel function is not noted. GENITOURINARY: No chronic renal disease. MUSCULOSKELETAL: Chronic arthritic pain with accompanying osteoarthritis. Past history of inappropriate use of barbiturates and analgesic therapy with limited dispensing now provided by primary caregiver. PHYSICAL EXAMINATION: GENERAL: Appearance is that of a lethargic, nonverbal, thin, cachectic adult female appearing older than stated age of 59 years. VITAL SIGNS: Initial vitals, temperature 95.5 degrees Fahrenheit, pulse rate 94, respiratory rate 30 with O2 sats of 98% on supplemental oxygen at 2 L. Blood pressure 131/63. HEENT: Does not open eyes to command. No facial asymmetries. Oral mucosa is dry in appearance. Sclerae anicteric. NECK: No nuchal rigidity or stridor. Brisk carotid pulses. LUNGS: Decreased sounds throughout. No retractions. Mildly tachypneic. She has inspiratory rales in the right hemithorax. HEART: Sounds are regular without murmurs or gallops. ABDOMEN : Thin, nondistended. No obvious organomegaly. Active sounds. Perineum is without inflammatory skin changes. EXTREMITIES: Thin. No pitting edema. Palpable pulses at the ankles are noted. Symmetrical tone and movement. SKIN: Intact. No cyanosis or diaphoresis. LABORATORY DATA: Labs on admission; WBC 7.7, hemoglobin 11.5, hematocrit 40.5, platelet count 273,000 with 92 neutrophils, 4 lymphocytes, 0 eosinophils. ABGs with oxygen at 1 L/minute by nasal cannula include a pH of 7.24, pCO2 of 130, PO2 of 76.8, bicarb 53.2 with a carboxyhemoglobin of 1.1. Chest x-ray, persistent right lower lobe infiltrates noted with previous hospitalization suggesting incomplete resolution of radiographic pneumonia. IMPRESSIONS: 1. Acute respiratory failure with hypercapnia and lethargy. 2. Chronic chronic obstructive pulmonary disease. 3. Ongoing tobacco use. 4. Suspected noncompliance with medical therapies. 5. Chronic depression with accompanying generalized anxiety and panic disorder. 6. Osteoporosis and reported chronic musculoskeletal pain. PLAN: The patient will be admitted to the ICU for continued respiratory support. With most recent conversation during last hospitalization, she indicated desire to continue with aggressive cardiorespiratory support including intubation and CPR if required by declining status. BiPAP therapy will be trialed. She has previously shown favorable response with reversal of her hypercapnia and clearing of sensorium. Additionally, we will provide inhaled therapy. Resume antibiotic therapy with oral doxycycline and IV ceftriaxone. Followup ABGs in the morning are requested. COVID-19 swab will be reviewed as well as repeat BMP to monitor electrolyte and renal status. We will allow increasing intake of high-protein diet as tolerated. Abstain from use of tobacco. Provide assistance with activity, allowing up in chair and commode as required with assistance of nursing staff. Woo Cantu MD /[id number]
[2020-01-23] MEDS ORDERED: Albuterol/Ipratropium 3.0-0.5 MG/3 ML Neb Soln NEB SCH ×2 (06:00→11:00)
[2020-01-23] MEDS ORDERED: methylPREDNISolone Sodium Succinate 125 MG/2 ML SDV IVPUSH SCH (08:00)
[2020-01-23] MEDS: Doxycycline 100 MG Cap PO SCH ×2 (08:34→20:34)
[2020-01-23] MEDS: PARoxetine 20 MG Tab PO SCH (08:34)
--- NOTE | 2020-01-23 08:42 | PN ---
DATE OF SERVICE: 01/23/2020 SUBJECTIVE: A 59-year-old female who was admitted yesterday evening with exacerbation of COPD and hypercapnia with lethargy and obtunded state. She has had a recent hospitalization for similar presentation with right lower lobe pneumonia identified during the stay. She was noted to have not completed the outpatient antibiotic therapy. She does admit to using DuoNebs four times daily with blow-by rather than use of a face mask. However, questionable use of remainder of her prescribed inhaled and oral medication. She has a noted history of anxiety with agoraphobia. She has difficulty adapting to use of BiPAP and has not initiated home BiPAP therapy, as was arranged at the time of last hospital stay. [facility] [employer] is investigating alternate masks, which may be better tolerated. Jenny has general anxiety and has refused the use of BiPAP therapy here in the hospital as well, for reasons of her panic and underlying anxiety. She has been hesitant to use appropriate therapeutic doses of alprazolam with homeopathic doses insisted. This has been relatively ineffective in managing her anxiety. Additionally, her scheduled antidepressant therapy has been sporadic in its use. She notes that she does desire invasive therapy including intubation and ventilatory support, if required for reasons of respiratory failure, though she notes with her anxiety disorder, she is fearful of the BiPAP therapies and ventilators, therefore, would require heavy sedation. She is reassured, with intubation, this would be necessary to allow for use of effective ventilatory support. In discussion, she does note that she does desire intubation, ventilatory support, and CPR if required. She also reports she was seen by her iron miner blasting last week. They had discussion of potential need and referral for lung transplant services. However, she continues to use tobacco in limited amounts and with current malnourished state, would need to see significant weight gain and improvement in her overall nutritional status before qualifying for the transplant service. OBJECTIVE: VITAL SIGNS: Temperature this morning 35.7; blood pressure 123/60; respiratory rate 32; O2 saturations 88% on nasal cannula oxygen at 1 to 2 L; and pulse rate 97. GENERAL: She is more alert and oriented, able to engage in conversation, anxious in presentation. LUNGS: Decreased breath sounds throughout. Inspiratory rales in the right hemithorax. HEART: Regular without murmurs or gallops. EXTREMITIES: Thin, noncyanotic. No edema. Non-diaphoretic. Symmetrical strength is noted. SKIN: Intact. LABORATORY DATA: Followup labs this morning including COVID-19 swab, metabolic panel, and repeat ABGs are pending. IMPRESSION AND PLAN: Chronic obstructive pulmonary disease exacerbation with acute respiratory failure and hypercapnia on presentation. Clinical state appears improved today. Followup ABGs to review CO2 levels are pending. Given the advanced status of her lung disease, she understands that respiratory support in the form of home BiPAP will be necessary to prevent recurrent episodes of hypercapnia and repeated hospitalizations. Respiratory Therapy will work with the patient today in an effort to find a reasonable comfortable fitting device. We will continue to encourage modest doses of anxiolytic therapy and use of antidepressants in an effort to deal with her underlying anxiety and resistance to treatment. It is noted that antibiotics dispensed on discharge from previous hospital stay were not self-administered. Antibiotics have been resumed for potential residual right-sided pneumonia. Additionally, we will resume use of paroxetine for her noted anxiety disorder. Family will provide necessary support today. We will request that hospitalist service assume care on their arrival this morning. Woo Cantu MD /[id number]
[2020-01-23] MEDS: Glycopyrrolate 15.6 MCG Cap.W.Dev Kit of 6 IH SCH ×3 (08:44→20:44)
[2020-01-23] MEDS: Fluticasone-Salmeterol 232-14 MCG Powder Inhalent INH SCH ×3 (08:44→20:44)
[2020-01-23] MEDS: Budesonide 0.5 MG/2 ML Neb Susp NEB SCH ×2 (08:44→20:34)
--- NOTE | 2020-01-23 09:02 | CR ---
CHEST: Portable 01/22/2020 at 9:25 PM CLINICAL HISTORY:Lethargy COMPARISON:01/08/2020 FINDINGS: Lungs are significantly emphysematous. There is been some reduction of infiltrate in the right lung base compared to prior study. There may be a minimal right effusion. Heart size and pulmonary vascularity are normal. There are atherosclerotic changes in the aorta. Impression: Severe changes of COPD There is some residual infiltrate in the right lung base.
[2020-01-23] MEDS: Levalbuterol HCl 1.25 MG/3 ML Neb NEB SCH ×3 (10:52→20:33)
[2020-01-23] MEDS: Lactobacillus Rhamnosus GG (Probiotic) Cap PO SCH ×2 (11:39→20:34)
[2020-01-23] MEDS: methylPREDNISolone Sodium Succinate 125 MG/2 ML SDV IVPUSH SCH (16:00)
[2020-01-23] MEDS: cefTRIAXone 1 GM in Sodium Chloride 0.9% 50 ML IV SCH (23:30)
[2020-01-24] MEDS: Benzocaine/Cetylpyridinium/Menthol Lozenge MUCMEM PRN (01:53)
[2020-01-24] MEDS: LORazepam 2 MG/ML SDV IVPUSH PRN ×2 (02:04→08:19)
[2020-01-24] MEDS: Budesonide 0.5 MG/2 ML Neb Susp NEB SCH ×2 (06:40→21:47)
[2020-01-24] MEDS: Levalbuterol HCl 1.25 MG/3 ML Neb NEB SCH ×4 (06:40→21:47)
[2020-01-24] MEDS: Fluticasone-Salmeterol 232-14 MCG Powder Inhalent INH SCH ×2 (07:29→21:48)
[2020-01-24] MEDS: Glycopyrrolate 15.6 MCG Cap.W.Dev Kit of 6 IH SCH ×2 (07:29→21:48)
[2020-01-24] MEDS: Lactobacillus Rhamnosus GG (Probiotic) Cap PO SCH ×2 (08:09→21:47)
[2020-01-24] MEDS: Doxycycline 100 MG Cap PO SCH ×2 (08:09→21:47)
[2020-01-24] MEDS: PARoxetine 20 MG Tab PO SCH (08:09)
[2020-01-24] MEDS: methylPREDNISolone Sodium Succinate 125 MG/2 ML SDV IVPUSH SCH ×2 (08:17)
--- NOTE | 2020-01-24 13:02 | PCM.PN ---
- General Info Date of Service: 01/24/20 Subjective Update: No acute events overnight. She did not use the noninvasive ventilation overnight. Still feels short of breath. Still feels weak. Has a weak cough with some loose sputum but not able to produce any sputum. No fevers. We reviewed her current medications and their indications as well as the role of the noninvasive home ventilator and the importance of follow-up with both nutrition and pulmonology. Functional Status: Reports: Pain Controlled, Tolerating Diet - Review of Systems General: Denies: Fever - Patient Data Vitals - Most Recent: Last Vital Signs Temp 35.4 C L 01/24/20 08:00 Pulse 83 01/24/20 11:42 Resp 21 H 01/24/20 09:00 BP 117/55 L 01/24/20 09:00 Pulse Ox 97 01/24/20 11:42 Weight - Most Recent: 34.019 kg I&O - Last 24 Hours: Intake & Output 01/23/20 01/24/20 01/24/20 22:59 06:59 14:59 Intake Total 600 400 Output Total 500 400 Balance 100 0 Lab Results Last 24 Hours: Laboratory Results - last 24 hr 01/23/20 01/24/20 01/24/20 Range/Units 07:45 05:45 05:45 WBC 9.6 (4.5-11.0) K/uL RBC 3.62 (3.30-5.50) M/uL Hgb 10.6 L (12.0-15.0) g/dL Hct 36.2 (36.0-48.0) % MCV 100 H (80-98) fL MCH 29 (27-31) pg MCHC 29 L (32-36) % Plt Count 250 (150-400) K/uL Puncture Site ABG pH (7.350-7.450) ABG pCO2 (35.0-42.0) mmHg ABG pO2 (75.0-100.0) mmHg ABG HCO3 (22.0-26.0) mmol/L ABG Total CO2 (21.0-25.0) mmol/L ABG O2 Saturation (95.0-98.0) % ABG O2 Content (15.0-23.0) %vol ABG Base Excess mm/L ABG Hemoglobin (12.0-16.0) g/dL ABG Oxyhemoglobin % ABG Carboxyhemoglobin (0.0-1.6) % ABG Methemoglobin % Henrik Test O2 Delivery Device Oxygen Flow Rate L Sodium 146 (140-148) mmol/L Potassium 4.2 (3.6-5.2) mmol/L Chloride 100 (100-108) mmol/L Carbon Dioxide > 45 H (21-32) mmol/L Anion Gap 5.2 (5.0-14.0) mmol/L BUN 13 (7-18) mg/dL Creatinine 0.5 L (0.6-1.0) mg/dL Est Cr Clr Drug Dosing 65.06 mL/min Estimated GFR (MDRD) > 60 (>60) Glucose 131 H (74-106) mg/dL Calcium 9.2 (8.5-10.1) mg/dL SARS Virus RNA (PCR) Negative (NEGATIVE) 01/24/20 Range/Units 05:48 WBC (4.5-11.0) K/uL RBC (3.30-5.50) M/uL Hgb (12.0-15.0) g/dL Hct (36.0-48.0) % MCV (80-98) fL MCH (27-31) pg MCHC (32-36) % Plt Count (150-400) K/uL Puncture Site Rt radial ABG pH 7.371 (7.350-7.450) ABG pCO2 87.4 H* (35.0-42.0) mmHg ABG pO2 69.9 L (75.0-100.0) mmHg ABG HCO3 49.4 H (22.0-26.0) mmol/L ABG Total CO2 45.7 H (21.0-25.0) mmol/L ABG O2 Saturation 92.9 L (95.0-98.0) % ABG O2 Content 14.1 L (15.0-23.0) %vol ABG Base Excess 20.4 mm/L ABG Hemoglobin 11.0 L (12.0-16.0) g/dL ABG Oxyhemoglobin 91.1 % ABG Carboxyhemoglobin 1.1 (0.0-1.6) % ABG Methemoglobin 0.8 % Henrik Test Pass O2 Delivery Device Nasal cannula Oxygen Flow Rate 2.0 L Sodium (140-148) mmol/L Potassium (3.6-5.2) mmol/L Chloride (100-108) mmol/L Carbon Dioxide (21-32) mmol/L Anion Gap (5.0-14.0) mmol/L BUN (7-18) mg/dL Creatinine (0.6-1.0) mg/dL Est Cr Clr Drug Dosing mL/min Estimated GFR (MDRD) (>60) Glucose (74-106) mg/dL Calcium (8.5-10.1) mg/dL SARS Virus RNA (PCR) (NEGATIVE) Med Orders - Current: Current Medications Alprazolam (Xanax) 0.25 mg PO TID PRN PRN Reason: Anxiety Last Admin: 01/23/20 18:01 Dose: 0.25 mg Documented by: Benzocaine/Menthol (Cepacol Sore Throat) 1 lozenge MUCMEM ASDIRECTED PRN PRN Reason: Sore Throat Last Admin: 01/24/20 01:53 Dose: 1 tab Documented by: Budesonide (Pulmicort) 0.5 mg NEB BIDRT [facility] Last Admin: 01/24/20 06:40 Dose: 0.5 mg Documented by: Doxycycline Hyclate (Vibramycin) 100 mg PO BID [facility] Last Admin: 01/24/20 08:09 Dose: 100 mg Documented by: Glycopyrrolate (Seebri Neohaler) 15.6 mcg IH BIDRT [facility] Last Admin: 01/24/20 07:29 Dose: Not Given Documented by: Ceftriaxone Sodium 1 gm/ (Sodium Chloride) 50 mls @ 100 mls/hr IV Q24H [facility] Last Admin: 01/23/20 23:30 Dose: 100 mls/hr Documented by: Lactobacillus Rhamnosus (Culturelle) 1 cap PO BID [facility] Last Admin: 01/24/20 08:09 Dose: 1 cap Documented by: Levalbuterol HCl (Xopenex) 1.25 mg NEB QIDRT [facility] Last Admin: 01/24/20 11:42 Dose: 1.25 mg Documented by: Levalbuterol HCl (Xopenex) 1.25 mg NEB Q2H PRN PRN Reason: shortness of breath/wheezing Lorazepam (Ativan) 0.5 mg IVPUSH Q4H PRN PRN Reason: Anxiety Last Admin: 01/24/20 08:19 Dose: 0.5 mg Documented by: Paroxetine HCl (Paxil) 10 mg PO DAILY [facility] Last Admin: 01/24/20 08:09 Dose: 10 mg Documented by: Prednisolone (Orapred 15 Mg/5ml Soln) 30 mg PO DAILY [facility] Prednisolone (Orapred 15 Mg/5ml Soln) 15 mg PO ONETIME ONE Stop: 01/24/20 16:01 Fluticasone/Salmeterol (Fluticasone-Salmeterol 232-14 Mcg Powder Inha) 1 puff INH BIDRT [facility] Last Admin: 01/24/20 07:29 Dose: Not Given Documented by: Discontinued Medications Albuterol (Ventolin Hfa) 0 gm INH Q4H PRN PRN Reason: Shortness of Breath Albuterol/Ipratropium (Duoneb 3.0-0.5 Mg/3 Ml) 3 ml NEB QID [facility] Last Admin: 01/23/20 07:01 Dose: 3 ml Documented by: Albuterol/Ipratropium (Duoneb 3.0-0.5 Mg/3 Ml) 3 ml NEB Q4H PRN PRN Reason: Shortness of Breath Last Admin: 01/23/20 00:50 Dose: 3 ml Documented by: Albuterol/Ipratropium (Duoneb 3.0-0.5 Mg/3 Ml) 3 ml NEB QIDRT [facility] Methylprednisolone Sodium Succinate (Solu-Medrol) 125 mg IVPUSH ONETIME ONE Stop: 01/22/20 21:16 Last Admin: 01/22/20 22:30 Dose: 125 mg Documented by: Methylprednisolone Sodium Succinate (Solu-Medrol) 67.5 mg IVPUSH Q8H [facility] Last Admin: 01/22/20 22:53 Dose: Not Given Documented by: Methylprednisolone Sodium Succinate (Solu-Medrol) 67.5 mg IVPUSH Q8H [facility] Last Admin: 01/23/20 08:35 Dose: 67.5 mg Documented by: Methylprednisolone Sodium Succinate (Solu-Medrol) 62.5 mg IVPUSH Q8H [facility] Last Admin: 01/24/20 08:17 Dose: 62.5 mg Documented by: Pantoprazole Sodium (Protonix Iv) 40 mg IVPUSH Q24H [facility] Last Admin: 01/22/20 23:52 Dose: 40 mg Documented by: - Exam Quality Assessment: Supplemental Oxygen General: Alert, Oriented, Cooperative, No Acute Distress Lungs: Decreased Breath Sounds (Poor air movement with expiration throughout). No: Normal Respiratory Effort (Mild increase in work of breathing), Wheezing Cardiovascular: Regular Rate, Regular Rhythm GI/Abdominal Exam: Soft, No Distention Extremities: No Pedal Edema. No: Increased Warmth Skin: Warm, Dry Psy/Mental Status: Alert, Normal Affect Sepsis Event Note - Evaluation Sepsis Screening Result: No Definite Risk - Focused Exam Vital Signs: Vital Signs Temp Pulse Resp BP Pulse Ox Pulse Ox 01/24/20 11:42 83 97 01/24/20 09:00 88 21 H 117/55 L 93 L 01/24/20 08:00 35.4 C L 90 26 H 119/62 92 L 01/24/20 07:00 82 21 H 123/60 90 L 01/24/20 05:00 85 107/49 L 01/24/20 03:00 90 20 102/58 L 96 Date Exam was Performed: 01/24/20 Time Exam was Performed: 14:45 - Problem List Review Problem List Initiated/Reviewed/Updated: Yes - My Orders Last 24 Hours: My Active Orders 01/23/20 13:51 Antiembolic Devices [RC] .Routine SCD [Sequential Compression Device] [OM.PC] Routine 01/23/20 21:00 LORazepam [Ativan] 0.5 mg IVPUSH Q4H PRN 01/24/20 01:36 Benzocaine/Cetylpyrd/Menthol [Cepacol Sore Throat] 1 lozenge MUCMEM ASDIRECTED PRN 01/24/20 16:00 prednisoLONE [OraPred 15 MG/5ML Soln] 15 mg PO ONETIME ONE 01/25/20 05:00 BLOOD GAS ARTERIAL [BG] Timed 01/25/20 09:00 prednisoLONE [OraPred 15 MG/5ML Soln] 30 mg PO DAILY - Plan Plan:: ASSESSMENT AND PLAN - Acute on chronic respiratory failure with hypercapnia-at baseline she has severe COPD with oxygen dependence and significant emphysema. She seems confused about her home medications. She has not tolerated the noninvasive home ventilator so far. PCO2 is still significantly elevated but is trending down. pH is normal. Clinically she looks a little better each day. Still extremely limited with any sort of activity because of her very poor respiratory status. I did review with her and her the medications and equipment that we have set her up with to manage her end-stage COPD. She seems to think that a feeding tube will solve all of her problems. -Continue current scheduled and as needed nebulizers as well as additional inhalers -Continue current antibiotics -Trial of prednisolone while hospitalized to see if she will tolerate -Noninvasive ventilation if needed -Supplemental oxygen as needed Severe COPD-baseline of oxygen dependence with a BMI of less than 15. She is hopeful that she will get a lung transplant but I do not believe that she fully understands the severity of her disease despite multiple conversations about this. Tobacco dependence, currently abstaining-history of smoking, quit recently. She knows the importance of cessation if she wants to ever be considered for lung transplant. Maintenance issues - - DVT prophylaxis -SCDs - GI prophylaxis -not indicated - Nutrition -high-protein diet Disposition -I would anticipate discharge home after the hospital stay Ye Masters M.D.
[2020-01-24] MEDS ORDERED: prednisoLONE 15 MG/5 ML Soln UD Cup PO ONE (16:00)
[2020-01-24] MEDS: ALPRAZolam 0.25 MG Tab PO PRN (21:47)
[2020-01-24] MEDS: cefTRIAXone 1 GM in Sodium Chloride 0.9% 50 ML IV SCH (23:44)
[2020-01-25] MEDS: LORazepam 2 MG/ML SDV IVPUSH PRN ×3 (02:08→20:40)
[2020-01-25] MEDS: Levalbuterol HCl 1.25 MG/3 ML Neb NEB PRN ×2 (02:36→18:32)
[2020-01-25] MEDS: Levalbuterol HCl 1.25 MG/3 ML Neb NEB SCH ×4 (07:24→20:21)
[2020-01-25] MEDS: Budesonide 0.5 MG/2 ML Neb Susp NEB SCH ×2 (07:24→20:21)
[2020-01-25] MEDS: Fluticasone-Salmeterol 232-14 MCG Powder Inhalent INH SCH ×2 (07:24→20:21)
[2020-01-25] MEDS: Glycopyrrolate 15.6 MCG Cap.W.Dev Kit of 6 IH SCH ×2 (07:25→20:21)
[2020-01-25] MEDS: prednisoLONE 15 MG/5 ML Soln UD Cup PO SCH (09:33)
[2020-01-25] MEDS: Lactobacillus Rhamnosus GG (Probiotic) Cap PO SCH ×2 (09:33→20:21)
[2020-01-25] MEDS: Doxycycline 100 MG Cap PO SCH ×2 (09:34→20:21)
[2020-01-25] MEDS: PARoxetine 20 MG Tab PO SCH (09:34)
--- NOTE | 2020-01-25 10:50 | PCM.PN ---
- General Info Date of Service: 01/25/20 Subjective Update: No acute events overnight. Patient has declined use of noninvasive ventilation. She is sleeping a fair amount. She is using part of her nebulizers but has not been completing them. She has been intermittently refusing inhalers. Appetite has not been great. Still feels very short of breath. She is not strong enough to move more than a couple feet from the bed. No fevers. Oxygenation has been stable with a small amount of supplemental oxygen. We had a long talk today about the severity of her illness and the high likelihood that she may in the next few weeks or months unless something changes dramatically. She is holding out hope that a feeding tube or possibly a period of intubation with sedation for a couple of weeks would make her better. I discussed my concern that both of these would be more harmful than helpful at this time. Functional Status: Reports: Pain Controlled - Review of Systems General: Reports: Weakness. Denies: Fever Pulmonary: Reports: Shortness of Breath - Patient Data Vitals - Most Recent: Last Vital Signs Temp 35.4 C L 01/25/20 07:00 Pulse 93 01/25/20 10:44 Resp 21 H 01/25/20 09:00 BP 112/62 01/25/20 09:00 Pulse Ox 92 L 01/25/20 09:00 Weight - Most Recent: 34.019 kg I&O - Last 24 Hours: Intake & Output 01/24/20 01/25/20 01/25/20 22:59 06:59 14:59 Intake Total 200 Output Total 550 1200 Balance -350 -1200 Lab Results Last 24 Hours: Laboratory Results - last 24 hr 01/25/20 Range/Units 05:18 Puncture Site Rt radial ABG pH 7.348 L (7.350-7.450) ABG pCO2 87.4 H* (35.0-42.0) mmHg ABG pO2 62.7 L (75.0-100.0) mmHg ABG HCO3 46.8 H (22.0-26.0) mmol/L ABG Total CO2 43.2 H (21.0-25.0) mmol/L ABG O2 Saturation 88.8 L (95.0-98.0) % ABG O2 Content 14.1 L (15.0-23.0) %vol ABG Base Excess 17.5 mm/L ABG Hemoglobin 11.5 L (12.0-16.0) g/dL ABG Oxyhemoglobin 86.8 % ABG Carboxyhemoglobin 1.1 (0.0-1.6) % ABG Methemoglobin 1.1 % Henrik Test Pass O2 Delivery Device Nasal cannula Oxygen Flow Rate 2.0 L Med Orders - Current: Current Medications Alprazolam (Xanax) 0.25 mg PO TID PRN PRN Reason: Anxiety Last Admin: 01/24/20 21:47 Dose: 0.25 mg Documented by: Benzocaine/Menthol (Cepacol Sore Throat) 1 lozenge MUCMEM ASDIRECTED PRN PRN Reason: Sore Throat Last Admin: 01/24/20 01:53 Dose: 1 tab Documented by: Budesonide (Pulmicort) 0.5 mg NEB BIDRT [facility] Last Admin: 01/25/20 07:24 Dose: 0.5 mg Documented by: Doxycycline Hyclate (Vibramycin) 100 mg PO BID [facility] Last Admin: 01/25/20 09:34 Dose: 100 mg Documented by: Glycopyrrolate (Seebri Neohaler) 15.6 mcg IH BIDRT [facility] Last Admin: 01/25/20 07:25 Dose: Not Given Documented by: Ceftriaxone Sodium 1 gm/ (Sodium Chloride) 50 mls @ 100 mls/hr IV Q24H [facility] Last Admin: 01/24/20 23:44 Dose: 100 mls/hr Documented by: Lactobacillus Rhamnosus (Culturelle) 1 cap PO BID [facility] Last Admin: 01/25/20 09:33 Dose: 1 cap Documented by: Levalbuterol HCl (Xopenex) 1.25 mg NEB QIDRT [facility] Last Admin: 01/25/20 10:44 Dose: 1.25 mg Documented by: Levalbuterol HCl (Xopenex) 1.25 mg NEB Q2H PRN PRN Reason: shortness of breath/wheezing Last Admin: 01/25/20 02:36 Dose: 1.25 mg Documented by: Lorazepam (Ativan) 0.5 mg IVPUSH Q4H PRN PRN Reason: Anxiety Last Admin: 01/25/20 02:08 Dose: 0.5 mg Documented by: Paroxetine HCl (Paxil) 10 mg PO DAILY [facility] Last Admin: 01/25/20 09:34 Dose: 10 mg Documented by: Prednisolone (Orapred 15 Mg/5ml Soln) 30 mg PO DAILY [facility] Last Admin: 01/25/20 09:33 Dose: 30 mg Documented by: Fluticasone/Salmeterol (Fluticasone-Salmeterol 232-14 Mcg Powder Inha) 1 puff INH BIDRT [facility] Last Admin: 01/25/20 07:24 Dose: Not Given Documented by: Discontinued Medications Albuterol (Ventolin Hfa) 0 gm INH Q4H PRN PRN Reason: Shortness of Breath Albuterol/Ipratropium (Duoneb 3.0-0.5 Mg/3 Ml) 3 ml NEB QID [facility] Last Admin: 01/23/20 07:01 Dose: 3 ml Documented by: Albuterol/Ipratropium (Duoneb 3.0-0.5 Mg/3 Ml) 3 ml NEB Q4H PRN PRN Reason: Shortness of Breath Last Admin: 01/23/20 00:50 Dose: 3 ml Documented by: Albuterol/Ipratropium (Duoneb 3.0-0.5 Mg/3 Ml) 3 ml NEB QIDRT [facility] Methylprednisolone Sodium Succinate (Solu-Medrol) 125 mg IVPUSH ONETIME ONE Stop: 01/22/20 21:16 Last Admin: 01/22/20 22:30 Dose: 125 mg Documented by: Methylprednisolone Sodium Succinate (Solu-Medrol) 67.5 mg IVPUSH Q8H [facility] Last Admin: 01/22/20 22:53 Dose: Not Given Documented by: Methylprednisolone Sodium Succinate (Solu-Medrol) 67.5 mg IVPUSH Q8H [facility] Last Admin: 01/23/20 08:35 Dose: 67.5 mg Documented by: Methylprednisolone Sodium Succinate (Solu-Medrol) 62.5 mg IVPUSH Q8H [facility] Last Admin: 01/24/20 08:17 Dose: 62.5 mg Documented by: Pantoprazole Sodium (Protonix Iv) 40 mg IVPUSH Q24H [facility] Last Admin: 01/22/20 23:52 Dose: 40 mg Documented by: Prednisolone (Orapred 15 Mg/5ml Soln) 15 mg PO ONETIME ONE Stop: 01/24/20 16:01 Last Admin: 01/24/20 15:49 Dose: 15 mg Documented by: - Exam Quality Assessment: Supplemental Oxygen General: Alert, Oriented, Cooperative, Mild Distress (increased work of breathing ) Lungs: Decreased Breath Sounds (poor exp air movement ). No: Normal Respiratory Effort (tachypnea), Wheezing Cardiovascular: Regular Rate, Regular Rhythm GI/Abdominal Exam: Soft, No Distention Extremities: No Pedal Edema. No: Increased Warmth Skin: Warm, Dry Psy/Mental Status: Alert, Anxious Sepsis Event Note - Evaluation Sepsis Screening Result: Sepsis Risk - Focused Exam Vital Signs: Vital Signs Temp Pulse Resp BP Pulse Ox 01/25/20 10:44 93 01/25/20 09:00 21 H 112/62 92 L 01/25/20 07:25 89 01/25/20 07:00 35.4 C L 92 28 H 128/68 90 L 01/25/20 05:00 24 H 124/70 95 01/25/20 03:00 27 H 121/54 L 87 L 01/25/20 01:00 20 107/62 99 01/24/20 23:00 19 108/59 L 100 Date Exam was Performed: 01/25/20 Time Exam was Performed: 15:50 - Problem List Review Problem List Initiated/Reviewed/Updated: Yes - My Orders Last 24 Hours: My Active Orders 01/25/20 09:00 prednisoLONE [OraPred 15 MG/5ML Soln] 30 mg PO DAILY 01/25/20 10:48 BIPAP Adult [RT BiPAP/CPAP] [RC] ASDIRECTED 01/25/20 21:00 Gabapentin [Neurontin] 300 mg PO BEDTIME 01/26/20 05:00 BASIC METABOLIC PANEL,BMP [CHEM] Timed BLOOD GAS ARTERIAL [BG] Timed CBC W/O DIFF,HEMOGRAM [HEME] Timed (1) - Plan Plan:: ASSESSMENT AND PLAN - Acute on chronic respiratory failure with hypercapnia-at baseline she has severe COPD with oxygen dependence and significant emphysema. She has been declining use of the noninvasive ventilation and intermittently declining her inhalers. We had a long talk today. She finally seems to understand that she is very sick and may not survive much longer given the severity of her lung disease. She seems to have unrealistic expectations. She says that she does not want to but does not want to willingly participate in getting better. She is tolerating prednisolone so far. -Continue current scheduled and as needed nebulizers as well as additional inhalers -Continue current antibiotics -Trial of prednisolone -Encourage use of noninvasive ventilation at night and with naps -Supplemental oxygen as needed Severe COPD-baseline of oxygen dependence with a BMI of less than 15. She is extremely debilitated and fragile at baseline. Unrealistic expectations. Poor compliance. We reviewed the importance of the mechanical ventilation/trilogy. Tobacco dependence, currently abstaining-history of smoking, quit recently. She knows the importance of cessation if she wants to ever be considered for lung transplant. Maintenance issues - - DVT prophylaxis -SCDs - GI prophylaxis -not indicated - Nutrition -high-protein diet Disposition -I would anticipate discharge home after the hospital stay Ye Masters M.D.
[2020-01-25] MEDS: Benzocaine/Cetylpyridinium/Menthol Lozenge MUCMEM PRN (15:38)
[2020-01-25] MEDS: Gabapentin 300 MG Cap PO SCH (20:21)
[2020-01-26] MEDS: LORazepam 2 MG/ML SDV IVPUSH PRN ×4 (02:05→21:20)
[2020-01-26] MEDS: Levalbuterol HCl 1.25 MG/3 ML Neb NEB SCH ×4 (07:33→20:52)
[2020-01-26] MEDS: Budesonide 0.5 MG/2 ML Neb Susp NEB SCH ×2 (07:33→20:52)
[2020-01-26] MEDS: Glycopyrrolate 15.6 MCG Cap.W.Dev Kit of 6 IH SCH ×3 (07:48→22:00)
[2020-01-26] MEDS: Fluticasone-Salmeterol 232-14 MCG Powder Inhalent INH SCH ×3 (07:48→22:00)
[2020-01-26] MEDS: prednisoLONE 15 MG/5 ML Soln UD Cup PO SCH ×2 (10:40→11:06)
[2020-01-26] MEDS: Lactobacillus Rhamnosus GG (Probiotic) Cap PO SCH ×3 (10:40→20:52)
[2020-01-26] MEDS: Doxycycline 100 MG Cap PO SCH ×3 (10:41→20:55)
[2020-01-26] MEDS: PARoxetine 20 MG Tab PO SCH ×2 (10:41→11:06)
--- NOTE | 2020-01-26 11:57 | PCM.PN ---
- General Info Date of Service: 01/26/20 Subjective Update: Patient had a rough night but was able to wear the noninvasive ventilator for a short while. She is more lethargic this morning and not able to provide any history. Heart rate and blood pressure have been stable. Oxygenation has been good. She has had the noninvasive ventilator on for a couple of hours. pH is slightly down from yesterday and pCO2 is above 90. - Patient Data Vitals - Most Recent: Last Vital Signs Temp 36 C L 01/26/20 08:00 Pulse 86 01/26/20 11:19 Resp 18 01/26/20 10:00 BP 99/56 L 01/26/20 10:00 Pulse Ox 91 L 01/26/20 10:00 Weight - Most Recent: 34.019 kg I&O - Last 24 Hours: Intake & Output 01/25/20 01/26/20 01/26/20 22:59 06:59 14:59 Intake Total 240 Output Total 900 200 Balance -660 -200 Lab Results Last 24 Hours: Laboratory Results - last 24 hr 01/26/20 01/26/20 01/26/20 Range/Units 04:40 04:40 04:40 WBC 7.0 (4.5-11.0) K/uL RBC 3.99 (3.30-5.50) M/uL Hgb 12.0 (12.0-15.0) g/dL Hct 39.5 (36.0-48.0) % MCV 99 H (80-98) fL MCH 30 (27-31) pg MCHC 30 L (32-36) % Plt Count 203 (150-400) K/uL Puncture Site L brachial ABG pH 7.299 L (7.350-7.450) ABG pCO2 95.4 H* (35.0-42.0) mmHg ABG pO2 75.2 (75.0-100.0) mmHg ABG HCO3 45.4 H (22.0-26.0) mmol/L ABG Total CO2 42.0 H (21.0-25.0) mmol/L ABG O2 Saturation 93.1 L (95.0-98.0) % ABG O2 Content 15.6 (15.0-23.0) %vol ABG Base Excess 15.2 mm/L ABG Hemoglobin 12.1 (12.0-16.0) g/dL ABG Oxyhemoglobin 91.2 % ABG Carboxyhemoglobin 1.2 (0.0-1.6) % ABG Methemoglobin 0.8 % O2 Delivery Device Nasal cannula Oxygen Flow Rate L Sodium 143 (140-148) mmol/L Potassium 4.2 (3.6-5.2) mmol/L Chloride 100 (100-108) mmol/L Carbon Dioxide 42 H (21-32) mmol/L Anion Gap 5.2 (5.0-14.0) mmol/L BUN 11 (7-18) mg/dL Creatinine 0.4 L (0.6-1.0) mg/dL Est Cr Clr Drug Dosing 81.33 mL/min Estimated GFR (MDRD) > 60 (>60) Glucose 92 (74-106) mg/dL Calcium 9.4 (8.5-10.1) mg/dL Med Orders - Current: Current Medications Alprazolam (Xanax) 0.25 mg PO TID PRN PRN Reason: Anxiety Last Admin: 01/24/20 21:47 Dose: 0.25 mg Documented by: Benzocaine/Menthol (Cepacol Sore Throat) 1 lozenge MUCMEM ASDIRECTED PRN PRN Reason: Sore Throat Last Admin: 01/25/20 15:38 Dose: 1 tab Documented by: Budesonide (Pulmicort) 0.5 mg NEB BIDRT [facility] Last Admin: 01/26/20 07:33 Dose: 0.5 mg Documented by: Doxycycline Hyclate (Vibramycin) 100 mg PO BID [facility] Last Admin: 01/26/20 11:06 Dose: 100 mg Documented by: Gabapentin (Neurontin) 300 mg PO BEDTIME [facility] Last Admin: 01/25/20 20:21 Dose: 300 mg Documented by: Glycopyrrolate (Seebri Neohaler) 15.6 mcg IH BIDRT [facility] Last Admin: 01/26/20 07:48 Dose: Not Given Documented by: Lactobacillus Rhamnosus (Culturelle) 1 cap PO BID [facility] Last Admin: 01/26/20 11:05 Dose: 1 cap Documented by: Levalbuterol HCl (Xopenex) 1.25 mg NEB QIDRT [facility] Last Admin: 01/26/20 11:19 Dose: 1.25 mg Documented by: Levalbuterol HCl (Xopenex) 1.25 mg NEB Q2H PRN PRN Reason: shortness of breath/wheezing Last Admin: 01/25/20 18:32 Dose: 1.25 mg Documented by: Lorazepam (Ativan) 0.5 mg IVPUSH Q4H PRN PRN Reason: Anxiety Last Admin: 01/26/20 07:32 Dose: 0.5 mg Documented by: Paroxetine HCl (Paxil) 10 mg PO DAILY [facility] Last Admin: 01/26/20 11:06 Dose: 10 mg Documented by: Prednisolone (Orapred 15 Mg/5ml Soln) 30 mg PO DAILY [facility] Last Admin: 01/26/20 11:06 Dose: 30 mg Documented by: Fluticasone/Salmeterol (Fluticasone-Salmeterol 232-14 Mcg Powder Inha) 1 puff INH BIDRT [facility] Last Admin: 01/26/20 07:48 Dose: Not Given Documented by: Discontinued Medications Albuterol (Ventolin Hfa) 0 gm INH Q4H PRN PRN Reason: Shortness of Breath Albuterol/Ipratropium (Duoneb 3.0-0.5 Mg/3 Ml) 3 ml NEB QID [facility] Last Admin: 01/23/20 07:01 Dose: 3 ml Documented by: Albuterol/Ipratropium (Duoneb 3.0-0.5 Mg/3 Ml) 3 ml NEB Q4H PRN PRN Reason: Shortness of Breath Last Admin: 01/23/20 00:50 Dose: 3 ml Documented by: Albuterol/Ipratropium (Duoneb 3.0-0.5 Mg/3 Ml) 3 ml NEB QIDRT [facility] Ceftriaxone Sodium 1 gm/ (Sodium Chloride) 50 mls @ 100 mls/hr IV Q24H [facility] Last Admin: 01/24/20 23:44 Dose: 100 mls/hr Documented by: Methylprednisolone Sodium Succinate (Solu-Medrol) 125 mg IVPUSH ONETIME ONE Stop: 01/22/20 21:16 Last Admin: 01/22/20 22:30 Dose: 125 mg Documented by: Methylprednisolone Sodium Succinate (Solu-Medrol) 67.5 mg IVPUSH Q8H [facility] Last Admin: 01/22/20 22:53 Dose: Not Given Documented by: Methylprednisolone Sodium Succinate (Solu-Medrol) 67.5 mg IVPUSH Q8H [facility] Last Admin: 01/23/20 08:35 Dose: 67.5 mg Documented by: Methylprednisolone Sodium Succinate (Solu-Medrol) 62.5 mg IVPUSH Q8H [facility] Last Admin: 01/24/20 08:17 Dose: 62.5 mg Documented by: Pantoprazole Sodium (Protonix Iv) 40 mg IVPUSH Q24H [facility] Last Admin: 01/22/20 23:52 Dose: 40 mg Documented by: Prednisolone (Orapred 15 Mg/5ml Soln) 15 mg PO ONETIME ONE Stop: 01/24/20 16:01 Last Admin: 01/24/20 15:49 Dose: 15 mg Documented by: - Exam Quality Assessment: Supplemental Oxygen General: No Acute Distress, Lethargic. No: Alert Lungs: Normal Respiratory Effort, Decreased Breath Sounds (Poor air movement especially with expiration). No: Crackles, Wheezing Cardiovascular: Regular Rate, Regular Rhythm GI/Abdominal Exam: Soft, No Distention Extremities: No Pedal Edema. No: Increased Warmth Skin: Warm, Dry Psy/Mental Status: No: Alert, Agitated Sepsis Event Note - Evaluation Sepsis Screening Result: No Definite Risk - Focused Exam Vital Signs: Vital Signs Temp Pulse Resp BP Pulse Ox Pulse Ox 01/26/20 11:19 86 01/26/20 10:00 18 99/56 L 91 L 01/26/20 08:00 36 C L 87 19 107/59 L 93 L 01/26/20 07:41 88 84 L 01/26/20 06:05 82 23 H 120/63 96 01/26/20 05:00 35.3 C L 78 26 H 124/61 96 01/26/20 03:00 82 19 101/55 L 100 01/26/20 01:00 35.4 C L 84 15 93/56 L 97 Date Exam was Performed: 01/26/20 Time Exam was Performed: 11:55 - Problem List Review Problem List Initiated/Reviewed/Updated: Yes - My Orders Last 24 Hours: My Active Orders 01/25/20 21:00 Gabapentin [Neurontin] 300 mg PO BEDTIME 01/27/20 05:00 BLOOD GAS ARTERIAL [BG] Timed - Plan Plan:: ASSESSMENT AND PLAN - Acute on chronic respiratory failure with hypercapnia-at baseline she has severe COPD with oxygen dependence and significant emphysema. She was able to tolerate the noninvasive ventilation for a short while. More lethargic today. Vital signs are otherwise stable. pH is slightly lower and PCO2 is slightly higher today. -Continue current scheduled and as needed nebulizers as well as additional inhalers -Continue current antibiotics -Trial of prednisolone -Encourage use of noninvasive ventilation at night and with naps -Supplemental oxygen as needed Severe COPD-baseline of oxygen dependence with a BMI of less than 15. She is extremely debilitated and fragile at baseline. Unrealistic expectations. Poor compliance. We reviewed the importance of the mechanical ventilation/trilogy. Tobacco dependence, currently abstaining-history of smoking, quit recently. She knows the importance of cessation if she wants to ever be considered for lung transplant. Maintenance issues - - DVT prophylaxis -SCDs - GI prophylaxis -not indicated - Nutrition -high-protein diet Disposition -I would anticipate discharge home after the hospital stay Ye Masters M.D.
[2020-01-26] MEDS: Gabapentin 300 MG Cap PO SCH (20:55)
[2020-01-27] MEDS: LORazepam 2 MG/ML SDV IVPUSH PRN ×3 (02:07→23:24)
[2020-01-27] MEDS: Levalbuterol HCl 1.25 MG/3 ML Neb NEB PRN (02:08)
[2020-01-27] MEDS: Glycopyrrolate 15.6 MCG Cap.W.Dev Kit of 6 IH SCH ×2 (07:50→20:57)
[2020-01-27] MEDS: Budesonide 0.5 MG/2 ML Neb Susp NEB SCH ×2 (07:50→21:20)
[2020-01-27] MEDS: Fluticasone-Salmeterol 232-14 MCG Powder Inhalent INH SCH ×2 (07:50→20:56)
[2020-01-27] MEDS: Levalbuterol HCl 1.25 MG/3 ML Neb NEB SCH ×4 (07:50→21:20)
[2020-01-27] MEDS: Lactobacillus Rhamnosus GG (Probiotic) Cap PO SCH ×2 (09:13→21:20)
[2020-01-27] MEDS: PARoxetine 20 MG Tab PO SCH (09:13)
[2020-01-27] MEDS: prednisoLONE 15 MG/5 ML Soln UD Cup PO SCH (09:14)
[2020-01-27] MEDS: Doxycycline 100 MG Cap PO SCH ×2 (09:14→21:20)
--- NOTE | 2020-01-27 11:06 | PCM.PN ---
- General Info Date of Service: 01/27/20 Subjective Update: There were no acute events overnight. Patient was able to tolerate her noninvasive ventilator for about 5 hours. PCO2 is slightly better today than it has been. She remains very weak and short of breath. She is very fatigued. She gets very short of breath and hypoxic with any sort of activity. She has made it as far as from the bed to the commode and that sent. No fevers. She tells me that she wants to keep doing everything she can to live. Functional Status: Reports: Pain Controlled, Tolerating Diet - Review of Systems General: Reports: Weakness Pulmonary: Reports: Shortness of Breath - Patient Data Vitals - Most Recent: Last Vital Signs Temp 35.1 C L 01/27/20 07:00 Pulse 87 01/27/20 09:00 Resp 16 01/27/20 09:00 BP 97/57 L 01/27/20 09:00 Pulse Ox 95 01/27/20 09:00 Weight - Most Recent: 34.019 kg I&O - Last 24 Hours: Intake & Output 01/26/20 01/27/20 01/27/20 22:59 06:59 14:59 Intake Total 150 Output Total 650 Balance -650 150 Lab Results Last 24 Hours: Laboratory Results - last 24 hr 01/27/20 Range/Units 05:50 Puncture Site L brachial ABG pH 7.368 (7.350-7.450) ABG pCO2 84.0 H* (35.0-42.0) mmHg ABG pO2 69.2 L (75.0-100.0) mmHg ABG HCO3 47.2 H (22.0-26.0) mmol/L ABG Total CO2 42.9 H (21.0-25.0) mmol/L ABG O2 Saturation 92.6 L (95.0-98.0) % ABG O2 Content 15.5 (15.0-23.0) %vol ABG Base Excess 18.0 mm/L ABG Hemoglobin 12.1 (12.0-16.0) g/dL ABG Oxyhemoglobin 90.7 % ABG Carboxyhemoglobin 1.3 (0.0-1.6) % ABG Methemoglobin 0.8 % Henrik Test Not Reportable O2 Delivery Device Nasal cannula Oxygen Flow Rate L Med Orders - Current: Current Medications Alprazolam (Xanax) 0.25 mg PO TID PRN PRN Reason: Anxiety Last Admin: 01/24/20 21:47 Dose: 0.25 mg Documented by: Benzocaine/Menthol (Cepacol Sore Throat) 1 lozenge MUCMEM ASDIRECTED PRN PRN Reason: Sore Throat Last Admin: 01/25/20 15:38 Dose: 1 tab Documented by: Budesonide (Pulmicort) 0.5 mg NEB BIDRT [facility] Last Admin: 01/27/20 07:50 Dose: 0.5 mg Documented by: Doxycycline Hyclate (Vibramycin) 100 mg PO BID [facility] Last Admin: 01/27/20 09:14 Dose: 100 mg Documented by: Gabapentin (Neurontin) 300 mg PO BEDTIME [facility] Last Admin: 01/26/20 20:55 Dose: 300 mg Documented by: Glycopyrrolate (Seebri Neohaler) 15.6 mcg IH BIDRT [facility] Last Admin: 01/27/20 07:50 Dose: Not Given Documented by: Lactobacillus Rhamnosus (Culturelle) 1 cap PO BID [facility] Last Admin: 01/27/20 09:13 Dose: 1 cap Documented by: Levalbuterol HCl (Xopenex) 1.25 mg NEB QIDRT [facility] Last Admin: 01/27/20 07:50 Dose: 1.25 mg Documented by: Levalbuterol HCl (Xopenex) 1.25 mg NEB Q2H PRN PRN Reason: shortness of breath/wheezing Last Admin: 01/27/20 02:08 Dose: 1.25 mg Documented by: Lorazepam (Ativan) 0.5 mg IVPUSH Q4H PRN PRN Reason: Anxiety Last Admin: 01/27/20 06:05 Dose: 0.5 mg Documented by: Paroxetine HCl (Paxil) 10 mg PO DAILY [facility] Last Admin: 01/27/20 09:13 Dose: 10 mg Documented by: Prednisolone (Orapred 15 Mg/5ml Soln) 30 mg PO DAILY [facility] Last Admin: 01/27/20 09:14 Dose: 30 mg Documented by: Fluticasone/Salmeterol (Fluticasone-Salmeterol 232-14 Mcg Powder Inha) 1 puff INH BIDRT [facility] Last Admin: 01/27/20 07:50 Dose: Not Given Documented by: Discontinued Medications Albuterol (Ventolin Hfa) 0 gm INH Q4H PRN PRN Reason: Shortness of Breath Albuterol/Ipratropium (Duoneb 3.0-0.5 Mg/3 Ml) 3 ml NEB QID [facility] Last Admin: 01/23/20 07:01 Dose: 3 ml Documented by: Albuterol/Ipratropium (Duoneb 3.0-0.5 Mg/3 Ml) 3 ml NEB Q4H PRN PRN Reason: Shortness of Breath Last Admin: 01/23/20 00:50 Dose: 3 ml Documented by: Albuterol/Ipratropium (Duoneb 3.0-0.5 Mg/3 Ml) 3 ml NEB QIDRT [facility] Ceftriaxone Sodium 1 gm/ (Sodium Chloride) 50 mls @ 100 mls/hr IV Q24H [facility] Last Admin: 01/24/20 23:44 Dose: 100 mls/hr Documented by: Methylprednisolone Sodium Succinate (Solu-Medrol) 125 mg IVPUSH ONETIME ONE Stop: 01/22/20 21:16 Last Admin: 01/22/20 22:30 Dose: 125 mg Documented by: Methylprednisolone Sodium Succinate (Solu-Medrol) 67.5 mg IVPUSH Q8H [facility] Last Admin: 01/22/20 22:53 Dose: Not Given Documented by: Methylprednisolone Sodium Succinate (Solu-Medrol) 67.5 mg IVPUSH Q8H [facility] Last Admin: 01/23/20 08:35 Dose: 67.5 mg Documented by: Methylprednisolone Sodium Succinate (Solu-Medrol) 62.5 mg IVPUSH Q8H [facility] Last Admin: 01/24/20 08:17 Dose: 62.5 mg Documented by: Pantoprazole Sodium (Protonix Iv) 40 mg IVPUSH Q24H [facility] Last Admin: 01/22/20 23:52 Dose: 40 mg Documented by: Prednisolone (Orapred 15 Mg/5ml Soln) 15 mg PO ONETIME ONE Stop: 01/24/20 16:01 Last Admin: 01/24/20 15:49 Dose: 15 mg Documented by: - Exam Quality Assessment: Supplemental Oxygen General: Alert, Oriented, Cooperative, No Acute Distress, Lethargic HEENT: Pupils Equal Lungs: Decreased Breath Sounds (Throughout). No: Normal Respiratory Effort (Increased work of breathing), Crackles, Wheezing Cardiovascular: Regular Rate, Regular Rhythm GI/Abdominal Exam: Soft, No Distention Extremities: No Pedal Edema. No: Increased Warmth Skin: Warm, Dry Psy/Mental Status: Alert, Other (Sleepy). No: Agitated Sepsis Event Note - Evaluation Sepsis Screening Result: Severe Sepsis Risk - Focused Exam Vital Signs: Vital Signs Temp Pulse Resp BP Pulse Ox Pulse Ox 01/27/20 09:00 87 16 97/57 L 95 01/27/20 07:53 88 92 L 01/27/20 07:00 35.1 C L 90 22 H 102/64 93 L 01/27/20 05:00 17 104/61 93 L 01/27/20 03:00 16 109/67 92 L 01/27/20 01:00 15 99/55 L 95 Date Exam was Performed: 01/27/20 Time Exam was Performed: 11:03 - Problem List Review Problem List Initiated/Reviewed/Updated: Yes - My Orders Last 24 Hours: My Active Orders 01/27/20 11:02 LORazepam [Ativan] 0.5 mg PO Q4H PRN 01/27/20 21:00 Gabapentin [Neurontin] 100 mg PO BEDTIME 01/28/20 05:00 BASIC METABOLIC PANEL,BMP [CHEM] Timed BLOOD GAS ARTERIAL [BG] Timed - Plan Plan:: ASSESSMENT AND PLAN - Acute on chronic respiratory failure with hypercapnia-at baseline she has severe COPD with oxygen dependence and significant emphysema. Able to tolerate noninvasive ventilation a little better last night but still has severe hypercapnia with normal pH. I believe she is at the end stage of her disease and despite multiple conversations have been having difficulty helping the patient understand where she is in the disease process. -Continue current scheduled and as needed nebulizers as well as additional inhalers -Continue current antibiotics -Trial of prednisolone -Encourage use of noninvasive ventilation at night and with naps -Supplemental oxygen as needed Severe COPD-baseline of oxygen dependence with a BMI of less than 15. She is extremely debilitated and fragile at baseline. Unrealistic expectations. Poor compliance. We reviewed the importance of the mechanical ventilation/trilogy. I think she would be very appropriate for hospice but she wishes to remain full code at this time. Tobacco dependence, currently abstaining-history of smoking, quit recently. She knows the importance of cessation if she wants to ever be considered for lung transplant. Maintenance issues - - DVT prophylaxis -SCDs - GI prophylaxis -not indicated - Nutrition -high-protein diet Disposition -I would anticipate discharge home after the hospital stay Ye Masters M.D.
[2020-01-27] MEDS: LORazepam 0.5 MG Tab PO PRN ×2 (15:32→21:20)
[2020-01-27] MEDS: Gabapentin 100 MG Cap PO SCH (21:20)
[2020-01-28] MEDS: Budesonide 0.5 MG/2 ML Neb Susp NEB SCH ×2 (07:19→22:00)
[2020-01-28] MEDS: Levalbuterol HCl 1.25 MG/3 ML Neb NEB SCH ×4 (07:19→22:00)
[2020-01-28] MEDS: Fluticasone-Salmeterol 232-14 MCG Powder Inhalent INH SCH ×2 (07:35→22:04)
[2020-01-28] MEDS: Glycopyrrolate 15.6 MCG Cap.W.Dev Kit of 6 IH SCH ×2 (07:35→21:57)
[2020-01-28] MEDS: prednisoLONE 15 MG/5 ML Soln UD Cup PO SCH (10:15)
[2020-01-28] MEDS: PARoxetine 20 MG Tab PO SCH (10:15)
[2020-01-28] MEDS: Lactobacillus Rhamnosus GG (Probiotic) Cap PO SCH ×2 (10:15→21:56)
[2020-01-28] MEDS: Doxycycline 100 MG Cap PO SCH ×2 (10:16→22:04)
--- NOTE | 2020-01-28 12:14 | PCM.PN ---
- General Info Date of Service: 01/28/20 Subjective Update: Ms. Lentzver been stable over the past 24 hours. She was able to use the BiPAP several times, for short durations. She is considering her options as far as ongoing care, at the present time would like to remain full code with aggressive support. Functional Status: Reports: Urinating. Denies: Tolerating Diet, Ambulating - Review of Systems General: Reports: Weakness, Fatigue. Denies: Fever, Chills Pulmonary: Reports: Shortness of Breath, Cough, Wheezing. Denies: Pleuritic Chest Pain, Sputum, Hemoptysis Cardiovascular: Reports: Dyspnea on Exertion. Denies: Chest Pain, Palpitations, Orthopnea, PND, Edema, Lightheadedness Gastrointestinal: Reports: No Symptoms - Patient Data Vitals - Most Recent: Last Vital Signs Temp 96.6 F L 01/28/20 05:00 Pulse 97 01/28/20 11:00 Resp 25 H 01/28/20 11:00 BP 113/62 01/28/20 11:00 Pulse Ox 89 L 01/28/20 11:00 Weight - Most Recent: 74 lb 15.985 oz I&O - Last 24 Hours: Intake & Output 01/27/20 01/28/20 01/28/20 22:59 06:59 14:59 Output Total 300 Balance -300 Lab Results Last 24 Hours: Laboratory Results - last 24 hr 01/28/20 01/28/20 Range/Units 05:45 05:52 Puncture Site L radial ABG pH 7.375 (7.350-7.450) ABG pCO2 75.1 H* (35.0-42.0) mmHg ABG pO2 131.0 H (75.0-100.0) mmHg ABG HCO3 42.9 H (22.0-26.0) mmol/L ABG Total CO2 39.5 H (21.0-25.0) mmol/L ABG O2 Saturation 98.7 H (95.0-98.0) % ABG O2 Content 15.1 (15.0-23.0) %vol ABG Base Excess 15.0 mm/L ABG Hemoglobin 11.0 L (12.0-16.0) g/dL ABG Oxyhemoglobin 95.5 % ABG Carboxyhemoglobin 2.2 H (0.0-1.6) % ABG Methemoglobin 1.0 % Henrik Test Passed O2 Delivery Device Nasal cannula Oxygen Flow Rate 2.0 L Sodium 143 (140-148) mmol/L Potassium 3.8 (3.6-5.2) mmol/L Chloride 100 (100-108) mmol/L Carbon Dioxide 43 H (21-32) mmol/L Anion Gap 3.8 L (5.0-14.0) mmol/L BUN 12 (7-18) mg/dL Creatinine 0.6 (0.6-1.0) mg/dL Est Cr Clr Drug Dosing 54.22 mL/min Estimated GFR (MDRD) > 60 (>60) Glucose 150 H (74-106) mg/dL Calcium 8.6 (8.5-10.1) mg/dL Med Orders - Current: Current Medications Benzocaine/Menthol (Cepacol Sore Throat) 1 lozenge MUCMEM ASDIRECTED PRN PRN Reason: Sore Throat Last Admin: 01/25/20 15:38 Dose: 1 tab Documented by: Budesonide (Pulmicort) 0.5 mg NEB BIDRT [facility] Last Admin: 01/28/20 07:19 Dose: 0.5 mg Documented by: Doxycycline Hyclate (Vibramycin) 100 mg PO BID [facility] Last Admin: 01/28/20 10:16 Dose: 100 mg Documented by: Gabapentin (Neurontin) 100 mg PO BEDTIME [facility] Last Admin: 01/27/20 21:20 Dose: 100 mg Documented by: Glycopyrrolate (Seebri Neohaler) 15.6 mcg IH BIDRT [facility] Last Admin: 01/28/20 07:35 Dose: Not Given Documented by: Lactobacillus Rhamnosus (Culturelle) 1 cap PO BID [facility] Last Admin: 01/28/20 10:15 Dose: 1 cap Documented by: Levalbuterol HCl (Xopenex) 1.25 mg NEB QIDRT [facility] Last Admin: 01/28/20 10:44 Dose: 1.25 mg Documented by: Levalbuterol HCl (Xopenex) 1.25 mg NEB Q2H PRN PRN Reason: shortness of breath/wheezing Last Admin: 01/27/20 02:08 Dose: 1.25 mg Documented by: Lorazepam (Ativan) 0.5 mg PO Q4H PRN PRN Reason: Anxiety Last Admin: 01/27/20 21:20 Dose: 0.5 mg Documented by: Lorazepam (Ativan) 0.5 mg IVPUSH Q4H PRN PRN Reason: Anxiety Last Admin: 01/27/20 23:24 Dose: 0.5 mg Documented by: Paroxetine HCl (Paxil) 10 mg PO DAILY [facility] Last Admin: 01/28/20 10:15 Dose: 10 mg Documented by: Prednisolone (Orapred 15 Mg/5ml Soln) 30 mg PO DAILY [facility] Last Admin: 01/28/20 10:15 Dose: 30 mg Documented by: Fluticasone/Salmeterol (Fluticasone-Salmeterol 232-14 Mcg Powder Inha) 1 puff INH BIDRT [facility] Last Admin: 01/28/20 07:35 Dose: Not Given Documented by: Discontinued Medications Albuterol (Ventolin Hfa) 0 gm INH Q4H PRN PRN Reason: Shortness of Breath Albuterol/Ipratropium (Duoneb 3.0-0.5 Mg/3 Ml) 3 ml NEB QID [facility] Last Admin: 01/23/20 07:01 Dose: 3 ml Documented by: Albuterol/Ipratropium (Duoneb 3.0-0.5 Mg/3 Ml) 3 ml NEB Q4H PRN PRN Reason: Shortness of Breath Last Admin: 01/23/20 00:50 Dose: 3 ml Documented by: Albuterol/Ipratropium (Duoneb 3.0-0.5 Mg/3 Ml) 3 ml NEB QIDRT [facility] Alprazolam (Xanax) 0.25 mg PO TID PRN PRN Reason: Anxiety Last Admin: 01/24/20 21:47 Dose: 0.25 mg Documented by: Gabapentin (Neurontin) 300 mg PO BEDTIME [facility] Last Admin: 01/26/20 20:55 Dose: 300 mg Documented by: Ceftriaxone Sodium 1 gm/ (Sodium Chloride) 50 mls @ 100 mls/hr IV Q24H [facility] Last Admin: 01/24/20 23:44 Dose: 100 mls/hr Documented by: Lorazepam (Ativan) 0.5 mg IVPUSH Q4H PRN PRN Reason: Anxiety Last Admin: 01/27/20 06:05 Dose: 0.5 mg Documented by: Methylprednisolone Sodium Succinate (Solu-Medrol) 125 mg IVPUSH ONETIME ONE Stop: 01/22/20 21:16 Last Admin: 01/22/20 22:30 Dose: 125 mg Documented by: Methylprednisolone Sodium Succinate (Solu-Medrol) 67.5 mg IVPUSH Q8H [facility] Last Admin: 01/22/20 22:53 Dose: Not Given Documented by: Methylprednisolone Sodium Succinate (Solu-Medrol) 67.5 mg IVPUSH Q8H [facility] Last Admin: 01/23/20 08:35 Dose: 67.5 mg Documented by: Methylprednisolone Sodium Succinate (Solu-Medrol) 62.5 mg IVPUSH Q8H [facility] Last Admin: 01/24/20 08:17 Dose: 62.5 mg Documented by: Pantoprazole Sodium (Protonix Iv) 40 mg IVPUSH Q24H [facility] Last Admin: 01/22/20 23:52 Dose: 40 mg Documented by: Prednisolone (Orapred 15 Mg/5ml Soln) 15 mg PO ONETIME ONE Stop: 01/24/20 16:01 Last Admin: 01/24/20 15:49 Dose: 15 mg Documented by: - Exam Quality Assessment: Supplemental Oxygen, DVT Prophylaxis General: Alert, Oriented, Cooperative, Moderate Distress Lungs: Clear to Auscultation, Decreased Breath Sounds, Wheezing. No: Crackles, Rales, Rhonchi Cardiovascular: Regular Rate, Regular Rhythm, No Murmurs GI/Abdominal Exam: Soft, Non-Tender, No Organomegaly, No Distention Extremities: Non-Tender, No Pedal Edema Sepsis Event Note - Evaluation Sepsis Screening Result: No Definite Risk - Focused Exam Vital Signs: Vital Signs Temp Pulse Resp BP Pulse Ox Pulse Ox 01/28/20 11:00 97 25 H 113/62 89 L 01/28/20 10:44 96 01/28/20 07:20 99 90 L 01/28/20 07:00 22 H 85/44 L 88 L 01/28/20 05:00 96.6 F L 101 H 23 H 93/64 92 L 01/28/20 03:00 97.7 F 83 19 97/54 L 95 01/28/20 01:00 95 19 98/53 L 91 L Date Exam was Performed: 01/28/20 Time Exam was Performed: 12:11 - Problem List Review Problem List Initiated/Reviewed/Updated: Yes - Plan Plan:: ASSESSMENT AND PLAN - Acute on chronic respiratory failure with hypercapnia-at baseline she has severe COPD with oxygen dependence and significant emphysema. -Continue current scheduled and as needed nebulizers as well as additional inhalers -Continue current antibiotics -Trial of prednisolone -Encourage use of noninvasive ventilation at night and with naps -Supplemental oxygen as needed Severe COPD-baseline of oxygen dependence with a BMI of less than 15. She is extremely debilitated and fragile at baseline. Unrealistic expectations. Poor compliance. We reviewed the importance of the mechanical ventilation/trilogy. I think she would be very appropriate for hospice but she wishes to remain full code at this time. Tobacco dependence, currently abstaining-history of smoking, quit recently. She knows the importance of cessation if she wants to ever be considered for lung transplant. Maintenance issues - - DVT prophylaxis -SCDs - GI prophylaxis -not indicated - Nutrition -high-protein diet Disposition -I would anticipate discharge home after the hospital stay
[2020-01-28] MEDS: LORazepam 2 MG/ML SDV IVPUSH PRN ×2 (14:29→22:19)
[2020-01-28] MEDS: Gabapentin 100 MG Cap PO SCH (22:04)
[2020-01-29] MEDS: LORazepam 2 MG/ML SDV IVPUSH PRN ×2 (06:01→10:31)
[2020-01-29] MEDS: Budesonide 0.5 MG/2 ML Neb Susp NEB SCH ×2 (06:58→21:58)
[2020-01-29] MEDS: Fluticasone-Salmeterol 232-14 MCG Powder Inhalent INH SCH ×3 (06:58→21:00)
[2020-01-29] MEDS: Glycopyrrolate 15.6 MCG Cap.W.Dev Kit of 6 IH SCH ×2 (06:58→21:01)
[2020-01-29] MEDS: Levalbuterol HCl 1.25 MG/3 ML Neb NEB SCH ×4 (06:58→21:58)
[2020-01-29] MEDS: prednisoLONE 15 MG/5 ML Soln UD Cup PO SCH (10:07)
[2020-01-29] MEDS: PARoxetine 20 MG Tab PO SCH (10:07)
[2020-01-29] MEDS: Doxycycline 100 MG Cap PO SCH ×2 (10:07→20:54)
[2020-01-29] MEDS: Lactobacillus Rhamnosus GG (Probiotic) Cap PO SCH ×2 (10:08→20:54)
--- NOTE | 2020-01-29 12:34 | PCM.PN ---
- General Info Date of Service: 01/29/20 Subjective Update: Ms. Howard is remained fairly stable since yesterday. Still only able to tolerate the BiPAP for very short periods of time. Is very weak and requires assistance of 2 to use the bedside commode. Functional Status: Reports: Urinating. Denies: Tolerating Diet, Ambulating - Review of Systems General: Reports: Weakness, Fatigue. Denies: Fever, Chills Pulmonary: Reports: Shortness of Breath, Wheezing. Denies: Pleuritic Chest Pain, Cough, Sputum, Hemoptysis Cardiovascular: Reports: Dyspnea on Exertion. Denies: Chest Pain, Palpitations, Orthopnea, PND, Edema, Lightheadedness Gastrointestinal: Reports: No Symptoms - Patient Data Vitals - Most Recent: Last Vital Signs Temp 96.0 F L 01/29/20 08:00 Pulse 95 01/29/20 10:59 Resp 20 01/29/20 10:00 BP 107/54 L 01/29/20 10:00 Pulse Ox 95 01/29/20 10:00 Weight - Most Recent: 74 lb 15.985 oz Med Orders - Current: Current Medications Benzocaine/Menthol (Cepacol Sore Throat) 1 lozenge MUCMEM ASDIRECTED PRN PRN Reason: Sore Throat Last Admin: 01/25/20 15:38 Dose: 1 tab Documented by: Budesonide (Pulmicort) 0.5 mg NEB BIDRT [facility] Last Admin: 01/29/20 06:58 Dose: 0.5 mg Documented by: Doxycycline Hyclate (Vibramycin) 100 mg PO BID [facility] Last Admin: 01/29/20 10:07 Dose: 100 mg Documented by: Gabapentin (Neurontin) 100 mg PO BEDTIME [facility] Last Admin: 01/28/20 22:04 Dose: 100 mg Documented by: Glycopyrrolate (Seebri Neohaler) 15.6 mcg IH BIDRT [facility] Last Admin: 01/29/20 06:58 Dose: Not Given Documented by: Lactobacillus Rhamnosus (Culturelle) 1 cap PO BID [facility] Last Admin: 01/29/20 10:08 Dose: 1 cap Documented by: Levalbuterol HCl (Xopenex) 1.25 mg NEB QIDRT [facility] Last Admin: 01/29/20 10:59 Dose: 1.25 mg Documented by: Levalbuterol HCl (Xopenex) 1.25 mg NEB Q2H PRN PRN Reason: shortness of breath/wheezing Last Admin: 01/27/20 02:08 Dose: 1.25 mg Documented by: Lorazepam (Ativan) 0.5 mg PO Q4H PRN PRN Reason: Anxiety Last Admin: 01/27/20 21:20 Dose: 0.5 mg Documented by: Lorazepam (Ativan) 0.5 mg IVPUSH Q4H PRN PRN Reason: Anxiety Last Admin: 01/29/20 10:31 Dose: 0.5 mg Documented by: Paroxetine HCl (Paxil) 10 mg PO DAILY [facility] Last Admin: 01/29/20 10:07 Dose: 10 mg Documented by: Prednisolone (Orapred 15 Mg/5ml Soln) 30 mg PO DAILY [facility] Last Admin: 01/29/20 10:07 Dose: 30 mg Documented by: Fluticasone/Salmeterol (Fluticasone-Salmeterol 232-14 Mcg Powder Inha) 1 puff INH BIDRT [facility] Last Admin: 01/29/20 10:24 Dose: 1 puff Documented by: Discontinued Medications Albuterol (Ventolin Hfa) 0 gm INH Q4H PRN PRN Reason: Shortness of Breath Albuterol/Ipratropium (Duoneb 3.0-0.5 Mg/3 Ml) 3 ml NEB QID [facility] Last Admin: 01/23/20 07:01 Dose: 3 ml Documented by: Albuterol/Ipratropium (Duoneb 3.0-0.5 Mg/3 Ml) 3 ml NEB Q4H PRN PRN Reason: Shortness of Breath Last Admin: 01/23/20 00:50 Dose: 3 ml Documented by: Albuterol/Ipratropium (Duoneb 3.0-0.5 Mg/3 Ml) 3 ml NEB QIDRT [facility] Alprazolam (Xanax) 0.25 mg PO TID PRN PRN Reason: Anxiety Last Admin: 01/24/20 21:47 Dose: 0.25 mg Documented by: Gabapentin (Neurontin) 300 mg PO BEDTIME [facility] Last Admin: 01/26/20 20:55 Dose: 300 mg Documented by: Ceftriaxone Sodium 1 gm/ (Sodium Chloride) 50 mls @ 100 mls/hr IV Q24H [facility] Last Admin: 01/24/20 23:44 Dose: 100 mls/hr Documented by: Lorazepam (Ativan) 0.5 mg IVPUSH Q4H PRN PRN Reason: Anxiety Last Admin: 01/27/20 06:05 Dose: 0.5 mg Documented by: Methylprednisolone Sodium Succinate (Solu-Medrol) 125 mg IVPUSH ONETIME ONE Stop: 01/22/20 21:16 Last Admin: 01/22/20 22:30 Dose: 125 mg Documented by: Methylprednisolone Sodium Succinate (Solu-Medrol) 67.5 mg IVPUSH Q8H [facility] Last Admin: 01/22/20 22:53 Dose: Not Given Documented by: Methylprednisolone Sodium Succinate (Solu-Medrol) 67.5 mg IVPUSH Q8H [facility] Last Admin: 01/23/20 08:35 Dose: 67.5 mg Documented by: Methylprednisolone Sodium Succinate (Solu-Medrol) 62.5 mg IVPUSH Q8H [facility] Last Admin: 01/24/20 08:17 Dose: 62.5 mg Documented by: Pantoprazole Sodium (Protonix Iv) 40 mg IVPUSH Q24H [facility] Last Admin: 01/22/20 23:52 Dose: 40 mg Documented by: Prednisolone (Orapred 15 Mg/5ml Soln) 15 mg PO ONETIME ONE Stop: 01/24/20 16:01 Last Admin: 01/24/20 15:49 Dose: 15 mg Documented by: - Exam Quality Assessment: Supplemental Oxygen, DVT Prophylaxis General: Alert, Oriented, Cooperative, Mild Distress Lungs: Clear to Auscultation, Normal Respiratory Effort, Decreased Breath Sounds, Wheezing. No: Rales, Rhonchi Cardiovascular: Regular Rate, Regular Rhythm, No Murmurs GI/Abdominal Exam: Soft, Non-Tender, No Organomegaly, No Distention Extremities: Non-Tender, No Pedal Edema Sepsis Event Note - Evaluation Sepsis Screening Result: No Definite Risk - Focused Exam Vital Signs: Vital Signs Temp Pulse Resp BP Pulse Ox 01/29/20 10:59 95 01/29/20 10:00 91 20 107/54 L 95 01/29/20 08:00 96.0 F L 98 18 93 L 01/29/20 06:58 87 07/21/20 06:00 94.7 F L 83 20 107/54 L 100 01/29/20 04:00 94 18 109/57 L 96 01/29/20 02:08 80 20 117/77 92 L 01/29/20 01:16 95 01/29/20 01:00 93 19 101/52 L 92 L Date Exam was Performed: 01/29/20 Time Exam was Performed: 12:32 - Problem List Review Problem List Initiated/Reviewed/Updated: Yes - My Orders Last 24 Hours: My Active Orders 01/29/20 12:31 Patient Status [ADT] Routine - Plan Plan:: ASSESSMENT AND PLAN - Acute on chronic respiratory failure with hypercapnia-at baseline she has severe COPD with oxygen dependence and significant emphysema. -Continue current scheduled and as needed nebulizers as well as additional inhalers -prednisolone -Encourage use of noninvasive ventilation at night and with naps -Supplemental oxygen as needed Severe COPD-baseline of oxygen dependence with a BMI of less than 15. She is extremely debilitated and fragile at baseline. Unrealistic expectations. Poor compliance. We reviewed the importance of the mechanical ventilation/trilogy. I think she would be very appropriate for hospice but she wishes to remain full code at this time. Tobacco dependence, currently abstaining-history of smoking, quit recently. She knows the importance of cessation if she wants to ever be considered for lung transplant. Maintenance issues - - DVT prophylaxis -SCDs - GI prophylaxis -not indicated - Nutrition -high-protein diet Disposition -I would anticipate discharge home after the hospital stay
[2020-01-29] MEDS: Gabapentin 100 MG Cap PO SCH (20:54)
[2020-01-29] MEDS: LORazepam 0.5 MG Tab PO PRN (20:57)
[2020-01-30] MEDS: Budesonide 0.5 MG/2 ML Neb Susp NEB SCH ×3 (00:19→21:42)
[2020-01-30] MEDS: Levalbuterol HCl 1.25 MG/3 ML Neb NEB SCH ×5 (00:20→21:42)
[2020-01-30] MEDS: LORazepam 0.5 MG Tab PO PRN ×4 (03:52→22:01)
[2020-01-30] MEDS: Fluticasone-Salmeterol 232-14 MCG Powder Inhalent INH SCH ×2 (07:11→22:04)
[2020-01-30] MEDS: Glycopyrrolate 15.6 MCG Cap.W.Dev Kit of 6 IH SCH ×2 (07:20→22:05)
[2020-01-30] MEDS: Doxycycline 100 MG Cap PO SCH ×2 (08:16→21:56)
[2020-01-30] MEDS: PARoxetine 20 MG Tab PO SCH (08:16)
[2020-01-30] MEDS: Lactobacillus Rhamnosus GG (Probiotic) Cap PO SCH ×2 (08:16→21:56)
[2020-01-30] MEDS: prednisoLONE 15 MG/5 ML Soln UD Cup PO SCH (08:17)
--- NOTE | 2020-01-30 09:26 | PCM.PN ---
- General Info Date of Service: 01/30/20 Subjective Update: Ms. Howard has remained stable since yesterday concerning her respiratory status. She becomes short of breath with minimal exertion and overall has been very very weak. We have discussed options for discharge including intermediate versus going home with home care, at this time she prefers a trial at home. Functional Status: Reports: Urinating. Denies: Tolerating Diet, Ambulating - Review of Systems General: Reports: Weakness, Fatigue. Denies: Fever, Chills Pulmonary: Reports: Shortness of Breath, Wheezing. Denies: Pleuritic Chest Pain, Cough, Sputum, Hemoptysis Cardiovascular: Reports: Dyspnea on Exertion. Denies: Chest Pain, Palpitations, Orthopnea, PND, Edema, Lightheadedness Gastrointestinal: Reports: No Symptoms - Patient Data Vitals - Most Recent: Last Vital Signs Temp 96.2 F L 01/30/20 08:00 Pulse 126 H 01/30/20 08:13 Resp 20 01/30/20 03:00 BP 132/63 01/30/20 08:13 Pulse Ox 92 L 01/30/20 08:13 Weight - Most Recent: 71 lb 11.2 oz I&O - Last 24 Hours: Intake & Output 01/29/20 01/30/20 01/30/20 22:59 06:59 14:59 Intake Total 300 500 Balance 300 500 Med Orders - Current: Current Medications Benzocaine/Menthol (Cepacol Sore Throat) 1 lozenge MUCMEM ASDIRECTED PRN PRN Reason: Sore Throat Last Admin: 01/25/20 15:38 Dose: 1 tab Documented by: Budesonide (Pulmicort) 0.5 mg NEB BIDRT [facility] Last Admin: 01/30/20 06:59 Dose: 0.5 mg Documented by: Doxycycline Hyclate (Vibramycin) 100 mg PO BID [facility] Last Admin: 01/30/20 08:16 Dose: 100 mg Documented by: Gabapentin (Neurontin) 100 mg PO BEDTIME [facility] Last Admin: 01/29/20 20:54 Dose: 100 mg Documented by: Glycopyrrolate (Seebri Neohaler) 15.6 mcg IH BIDRT [facility] Last Admin: 01/29/20 21:01 Dose: Not Given Documented by: Lactobacillus Rhamnosus (Culturelle) 1 cap PO BID [facility] Last Admin: 01/30/20 08:16 Dose: 1 cap Documented by: Levalbuterol HCl (Xopenex) 1.25 mg NEB QIDRT [facility] Last Admin: 01/30/20 06:59 Dose: 1.25 mg Documented by: Levalbuterol HCl (Xopenex) 1.25 mg NEB Q2H PRN PRN Reason: shortness of breath/wheezing Last Admin: 01/27/20 02:08 Dose: 1.25 mg Documented by: Lorazepam (Ativan) 0.5 mg PO Q4H PRN PRN Reason: Anxiety Last Admin: 01/30/20 07:28 Dose: 0.5 mg Documented by: Paroxetine HCl (Paxil) 10 mg PO DAILY [facility] Last Admin: 01/30/20 08:16 Dose: 10 mg Documented by: Prednisolone (Orapred 15 Mg/5ml Soln) 30 mg PO DAILY [facility] Last Admin: 01/30/20 08:17 Dose: 30 mg Documented by: Fluticasone/Salmeterol (Fluticasone-Salmeterol 232-14 Mcg Powder Inha) 1 puff INH BIDRT [facility] Last Admin: 01/30/20 07:11 Dose: 1 puff Documented by: Discontinued Medications Albuterol (Ventolin Hfa) 0 gm INH Q4H PRN PRN Reason: Shortness of Breath Albuterol/Ipratropium (Duoneb 3.0-0.5 Mg/3 Ml) 3 ml NEB QID [facility] Last Admin: 01/23/20 07:01 Dose: 3 ml Documented by: Albuterol/Ipratropium (Duoneb 3.0-0.5 Mg/3 Ml) 3 ml NEB Q4H PRN PRN Reason: Shortness of Breath Last Admin: 01/23/20 00:50 Dose: 3 ml Documented by: Albuterol/Ipratropium (Duoneb 3.0-0.5 Mg/3 Ml) 3 ml NEB QIDRT [facility] Alprazolam (Xanax) 0.25 mg PO TID PRN PRN Reason: Anxiety Last Admin: 01/24/20 21:47 Dose: 0.25 mg Documented by: Gabapentin (Neurontin) 300 mg PO BEDTIME [facility] Last Admin: 01/26/20 20:55 Dose: 300 mg Documented by: Ceftriaxone Sodium 1 gm/ (Sodium Chloride) 50 mls @ 100 mls/hr IV Q24H [facility] Last Admin: 01/24/20 23:44 Dose: 100 mls/hr Documented by: Lorazepam (Ativan) 0.5 mg IVPUSH Q4H PRN PRN Reason: Anxiety Last Admin: 01/27/20 06:05 Dose: 0.5 mg Documented by: Lorazepam (Ativan) 0.5 mg IVPUSH Q4H PRN PRN Reason: Anxiety Last Admin: 01/29/20 10:31 Dose: 0.5 mg Documented by: Methylprednisolone Sodium Succinate (Solu-Medrol) 125 mg IVPUSH ONETIME ONE Stop: 01/22/20 21:16 Last Admin: 01/22/20 22:30 Dose: 125 mg Documented by: Methylprednisolone Sodium Succinate (Solu-Medrol) 67.5 mg IVPUSH Q8H [facility] Last Admin: 01/22/20 22:53 Dose: Not Given Documented by: Methylprednisolone Sodium Succinate (Solu-Medrol) 67.5 mg IVPUSH Q8H [facility] Last Admin: 01/23/20 08:35 Dose: 67.5 mg Documented by: Methylprednisolone Sodium Succinate (Solu-Medrol) 62.5 mg IVPUSH Q8H [facility] Last Admin: 01/24/20 08:17 Dose: 62.5 mg Documented by: Pantoprazole Sodium (Protonix Iv) 40 mg IVPUSH Q24H [facility] Last Admin: 01/22/20 23:52 Dose: 40 mg Documented by: Prednisolone (Orapred 15 Mg/5ml Soln) 15 mg PO ONETIME ONE Stop: 01/24/20 16:01 Last Admin: 01/24/20 15:49 Dose: 15 mg Documented by: - Exam Quality Assessment: Supplemental Oxygen, DVT Prophylaxis General: Alert, Oriented, Cooperative, Moderate Distress Lungs: Clear to Auscultation, Normal Respiratory Effort, Decreased Breath Sounds, Wheezing. No: Rales, Rhonchi Cardiovascular: Regular Rate, Regular Rhythm, No Murmurs GI/Abdominal Exam: Soft, Non-Tender, No Organomegaly, No Distention Extremities: Non-Tender, No Pedal Edema Sepsis Event Note - Evaluation Sepsis Screening Result: No Definite Risk - Focused Exam Vital Signs: Vital Signs Temp Pulse Resp BP Pulse Ox Pulse Ox 01/30/20 08:13 126 H 132/63 92 L 01/30/20 08:00 96.2 F L 01/30/20 07:00 82 110/60 90 L 90 L 01/30/20 06:00 84 109/63 01/30/20 03:00 95.8 F L 74 20 103/52 L 98 01/29/20 23:00 96.1 F L 77 18 87/51 L 95 Date Exam was Performed: 01/30/20 Time Exam was Performed: 09:17 - Problem List Review Problem List Initiated/Reviewed/Updated: Yes - My Orders Last 24 Hours: My Active Orders 01/29/20 12:31 Patient Status [ADT] Routine - Plan Plan:: ASSESSMENT AND PLAN - Acute on chronic respiratory failure with hypercapnia-at baseline she has severe COPD with oxygen dependence and significant emphysema. -Continue current scheduled and as needed nebulizers as well as additional inhalers -prednisolone -Encourage use of noninvasive ventilation at night and with naps -Supplemental oxygen as needed Severe COPD-baseline of oxygen dependence with a BMI of less than 15. She is extremely debilitated and fragile at baseline. Unrealistic expectations. Poor compliance. We reviewed the importance of the mechanical ventilation/trilogy. I think she would be very appropriate for hospice but she wishes to remain full code at this time. Tobacco dependence, currently abstaining-history of smoking, quit recently. She knows the importance of cessation if she wants to ever be considered for lung transplant. Maintenance issues - - DVT prophylaxis -SCDs - GI prophylaxis -not indicated - Nutrition -high-protein diet Disposition -I would anticipate discharge home after the hospital stay
[2020-01-30] MEDS: Gabapentin 100 MG Cap PO SCH (21:56)
[2020-01-31] MEDS: LORazepam 0.5 MG Tab PO PRN ×2 (06:48→10:57)
[2020-01-31] MEDS: Fluticasone-Salmeterol 232-14 MCG Powder Inhalent INH SCH (07:15)
[2020-01-31] MEDS: Budesonide 0.5 MG/2 ML Neb Susp NEB SCH (07:15)
[2020-01-31] MEDS: Levalbuterol HCl 1.25 MG/3 ML Neb NEB SCH ×2 (07:15→11:13)
[2020-01-31] MEDS: Glycopyrrolate 15.6 MCG Cap.W.Dev Kit of 6 IH SCH (07:15)
[2020-01-31 07:42] VITALS: BP 94/42
[2020-01-31 07:47] VITALS: PULSE 89
[2020-01-31] MEDS: PARoxetine 20 MG Tab PO SCH (08:31)
[2020-01-31] MEDS: Lactobacillus Rhamnosus GG (Probiotic) Cap PO SCH (08:31)
[2020-01-31] MEDS: Doxycycline 100 MG Cap PO SCH (08:31)
[2020-01-31] MEDS ORDERED: prednisoLONE 15 MG/5 ML Soln UD Cup PO SCH (09:00)
--- NOTE | 2020-01-31 10:35 | PCM.DCSUM1 ---
Discharge Summary - Hospital Course Brief History: Ms. Howard is a 59-year-old woman who was admitted through the emergency department with acute on chronic hypoxic and hypercapnic respiratory failure. - Discharge Data Discharge Date: 01/31/20 Discharge Disposition: Home, W Home Health Agency 06 Condition: Poor - Referral to Home Health Date of Face to Face Encounter: 01/31/20 Reason for Homebound Status: Weakness, Hypoxia Primary Care Physician: PCP None Skilled Need: weakness - Discharge Diagnosis/Problem(s) (1) COPD exacerbation SNOMED Code(s): 983295037 ICD Code: J44.1 - CHRONIC OBSTRUCTIVE PULMONARY DISEASE W (ACUTE) EXAC ERBATION Status: Acute Current Visit: No (2) Chronic respiratory failure with hypoxia and hypercapnia SNOMED Code(s): 26135686, 006255555 ICD Code: J96.11 - CHRONIC RESPIRATORY FAILURE WITH HYPOXIA; J96.12 - CHRONIC RESPIRATORY FAILURE WITH HYPERCAPNIA Status: Chronic Current Visit: Yes (3) Right middle lobe pneumonia SNOMED Code(s): 507457253 ICD Code: J18.9 - PNEUMONIA, UNSPECIFIED ORGANISM Status: Acute Current Visit: No Qualifiers: Pneumonia type: due to unspecified organism Qualified Code(s): J18.9 - Pneumonia, unspecified organism (4) Generalized anxiety disorder with panic attacks SNOMED Code(s): 52732722 ICD Code: F41.1 - GENERALIZED ANXIETY DISORDER; F41.0 - PANIC DISORDER [EPISODIC PAROXYSMAL ANXIETY] Status: Chronic Current Visit: No - Patient Summary/Data Hospital Course: Ms. Howard is a 59-year-old woman who was admitted through the emergency dep artment with increased shortness of breath, secondary to acute on chronic hypoxic and hypercapnic respiratory failure. She has a known history of severe end-stage COPD and is on oxygen at home. She has had 2 recent admissions for respiratory compromise, the most recent of which included treatment for management of pneumonia. On admission she was given IV steroids as well as IV fluids for hydration and nebulizer therapy. She was placed back on IV antibiotic therapy as chest x-ray continued to show evidence of residual infiltrate. In hospital stay she was intermittently treated with noninvasive positive pressure ventilation as tolerated. In general she was able to tolerate this only for short periods of time. She slowly improved during hospitalization and by the time of discharge was back to her baseline respiratory status. Unfortunately she remained very weak, requiring the assistance of 2 for transfers and unable to ambulate. She was converted from IV steroids to oral prednisolone and will be discharged home with this at 20 mg daily. Follow up appointment will be scheduled with her primary care provider and the plan will be for tapering of the prednisolone over the next month. By the time of discharge she had completed a full course of antibiotics. We had several discussions during her hospital stay, concerning her wishes for ongoing care. She understands that she has end-stage disease and is unlikely to survive much longer with her current respiratory status. Complicating her severe respiratory compromise is malnutrition, oral intake is been very poor over the past few months. She wants to remain a full code with ongoing full aggressive support and intervention if needed. I have recommended to her that when she returns with further respiratory compromise that we consider transfer to a tertiary care center for further subspecialty evaluation and a second opinion concerning her respiratory status and ongoing management. Activity will be as tolerated and she will resume her usual diet as she is able. She is encouraged to use her home ventilator as much as possible. She will be discharged home with home care services. - Patient Instructions Diet: Usual Diet as Tolerated Activity: As Tolerated Other/Special Instructions: Please schedule follow-up appointment with primary care provider within 1 week. - Discharge Plan *PRESCRIPTION DRUG MONITORING PROGRAM REVIEWED*: Not Applicable *COPY OF PRESCRIPTION DRUG MONITORING REPORT IN PATIENT DANIKA: Not Applicable Prescriptions/Med Rec: prednisoLONE [Prednisolone] 20 mg PO DAILY #30 ml Home Medications: Home Meds Albuterol [Ventolin HFA] 2 puff INH Q4H PRN 07/01/14 [History] Albuterol/Ipratropium [DuoNeb 3.0-0.5 MG/3 ML] 1 dose INH QID 10/02/14 [History] ALPRAZolam [Alprazolam] 1 tab PO TID PRN 12/09/19 [History] Budesonide [Pulmicort] 0.5 mg IH BID 12/09/19 [History] Fluticasone Propion/Salmeterol [Fluticasone-Salmeterol 500-50] 1 dose INH BID 12/09/19 [History] Revefenacin [Yupelri] 175 mcg IN DAILY 12/09/19 [History] PARoxetine [Paxil] 10 mg PO DAILY 01/07/20 [History] prednisoLONE [Prednisolone] 20 mg PO DAILY #30 ml 01/31/20 [Rx] Oxygen Therapy Mode: Nasal Cannula Oxygen Flow Rate (L/min): 2 Maintain SPO2% less than: 92 Maintain SpO2% greater than: 88 Referrals: Dedra Venegas MD [Ordering Only Provider] - 02/05/20 2:40 pm (Your appointment with Dr. Venegas will be at the [facility].) - Discharge Summary/Plan Comment DC Time >30 min.: No - Patient Data Vitals - Most Recent: Last Vital Signs Temp 97.4 F 01/31/20 07:46 Pulse 89 01/31/20 07:46 Resp 18 01/31/20 07:46 BP 94/42 L 01/31/20 07:46 Pulse Ox 97 01/31/20 08:06 Weight - Most Recent: 71 lb 11.2 oz I&O - Last 24 hours: Intake & Output 01/30/20 01/31/20 01/31/20 22:59 06:59 14:59 Intake Total 950 Output Total 300 Balance 650 Med Orders - Current: Current Medications Benzocaine/Menthol (Cepacol Sore Throat) 1 lozenge MUCMEM ASDIRECTED PRN PRN Reason: Sore Throat Last Admin: 01/25/20 15:38 Dose: 1 tab Documented by: Budesonide (Pulmicort) 0.5 mg NEB BIDRT [facility] Last Admin: 01/31/20 07:15 Dose: 0.5 mg Documented by: Doxycycline Hyclate (Vibramycin) 100 mg PO BID [facility] Last Admin: 01/31/20 08:31 Dose: 100 mg Documented by: Gabapentin (Neurontin) 100 mg PO BEDTIME [facility] Last Admin: 01/30/20 21:56 Dose: 100 mg Documented by: Glycopyrrolate (Seebri Neohaler) 15.6 mcg IH BIDRT [facility] Last Admin: 01/31/20 07:15 Dose: Not Given Documented by: Lactobacillus Rhamnosus (Culturelle) 1 cap PO BID [facility] Last Admin: 01/31/20 08:31 Dose: 1 cap Documented by: Levalbuterol HCl (Xopenex) 1.25 mg NEB QIDRT [facility] Last Admin: 01/31/20 07:15 Dose: 1.25 mg Documented by: Levalbuterol HCl (Xopenex) 1.25 mg NEB Q2H PRN PRN Reason: shortness of breath/wheezing Last Admin: 01/27/20 02:08 Dose: 1.25 mg Documented by: Lorazepam (Ativan) 0.5 mg PO Q4H PRN PRN Reason: Anxiety Last Admin: 01/31/20 06:48 Dose: 0.5 mg Documented by: Paroxetine HCl (Paxil) 10 mg PO DAILY [facility] Last Admin: 01/31/20 08:31 Dose: 10 mg Documented by: Prednisolone (Orapred 15 Mg/5ml Soln) 20 mg PO DAILY [facility] Last Admin: 01/31/20 08:31 Dose: 20 mg Documented by: Fluticasone/Salmeterol (Fluticasone-Salmeterol 232-14 Mcg Powder Inha) 1 puff INH BIDRT [facility] Last Admin: 01/31/20 07:15 Dose: 1 puff Documented by: Discontinued Medications Albuterol (Ventolin Hfa) 0 gm INH Q4H PRN PRN Reason: Shortness of Breath Albuterol/Ipratropium (Duoneb 3.0-0.5 Mg/3 Ml) 3 ml NEB QID [facility] Last Admin: 01/23/20 07:01 Dose: 3 ml Documented by: Albuterol/Ipratropium (Duoneb 3.0-0.5 Mg/3 Ml) 3 ml NEB Q4H PRN PRN Reason: Shortness of Breath Last Admin: 01/23/20 00:50 Dose: 3 ml Documented by: Albuterol/Ipratropium (Duoneb 3.0-0.5 Mg/3 Ml) 3 ml NEB QIDRT [facility] Alprazolam (Xanax) 0.25 mg PO TID PRN PRN Reason: Anxiety Last Admin: 01/24/20 21:47 Dose: 0.25 mg Documented by: Gabapentin (Neurontin) 300 mg PO BEDTIME [facility] Last Admin: 01/26/20 20:55 Dose: 300 mg Documented by: Ceftriaxone Sodium 1 gm/ (Sodium Chloride) 50 mls @ 100 mls/hr IV Q24H [facility] Last Admin: 01/24/20 23:44 Dose: 100 mls/hr Documented by: Lorazepam (Ativan) 0.5 mg IVPUSH Q4H PRN PRN Reason: Anxiety Last Admin: 01/27/20 06:05 Dose: 0.5 mg Documented by: Lorazepam (Ativan) 0.5 mg IVPUSH Q4H PRN PRN Reason: Anxiety Last Admin: 01/29/20 10:31 Dose: 0.5 mg Documented by: Methylprednisolone Sodium Succinate (Solu-Medrol) 125 mg IVPUSH ONETIME ONE Stop: 01/22/20 21:16 Last Admin: 01/22/20 22:30 Dose: 125 mg Documented by: Methylprednisolone Sodium Succinate (Solu-Medrol) 67.5 mg IVPUSH Q8H [facility] Last Admin: 01/22/20 22:53 Dose: Not Given Documented by: Methylprednisolone Sodium Succinate (Solu-Medrol) 67.5 mg IVPUSH Q8H [facility] Last Admin: 01/23/20 08:35 Dose: 67.5 mg Documented by: Methylprednisolone Sodium Succinate (Solu-Medrol) 62.5 mg IVPUSH Q8H [facility] Last Admin: 01/24/20 08:17 Dose: 62.5 mg Documented by: Pantoprazole Sodium (Protonix Iv) 40 mg IVPUSH Q24H [facility] Last Admin: 01/22/20 23:52 Dose: 40 mg Documented by: Prednisolone (Orapred 15 Mg/5ml Soln) 30 mg PO DAILY [facility] Last Admin: 01/30/20 08:17 Dose: 30 mg Documented by: Prednisolone (Orapred 15 Mg/5ml Soln) 15 mg PO ONETIME ONE Stop: 01/24/20 16:01 Last Admin: 01/24/20 15:49 Dose: 15 mg Documented by: - Exam Quality Assessment: Reports: DVT Prophylaxis General: Reports: Alert, Oriented, Cooperative, Moderate Distress Lungs: Reports: Clear to Auscultation, Decreased Breath Sounds, Wheezing. Denies: Normal Respiratory Effort, Rales, Rhonchi, Rub Cardiovascular: Reports: Regular Rate, Regular Rhythm, No Murmurs GI/Abdominal Exam: Soft, Non-Tender, No Organomegaly, No Distention Extremities: Non-Tender, No Pedal Edema
== END 2020-01-31 11:30 | disposition home health service (06) | DRG 189 ==
LOC: JP.ED 21:02 → JP.ICU 21:33 → JP.MS 01-30 18:50
PROVIDERS: ADMIT Family Medicine; ATTEND Hospitalist
PROC: 5A09357 Assistance with Respiratory Ventilation, Less than 24 Consecutive Hours, Continuous Positive Airway Pressure (ICD-10-PCS; principal; 2020-01-26)
DX: J96.22 Acute and chronic respiratory failure with hypercapnia (principal); J18.9 Pneumonia, unspecified organism; E46 Unspecified protein-calorie malnutrition; Z68.1 Body mass index [BMI] 19.9 or less, adult; F41.0 Panic disorder [episodic paroxysmal anxiety]; J43.9 Emphysema, unspecified; Z20.828 Contact with and (suspected) exposure to other viral communicable diseases; M81.0 Age-related osteoporosis without current pathological fracture; F32.9 Major depressive disorder, single episode, unspecified; E55.9 Vitamin D deficiency, unspecified; F41.1 Generalized anxiety disorder; Z88.1 Allergy status to other antibiotic agents; Z88.0 Allergy status to penicillin; Z88.5 Allergy status to narcotic agent; Z91.14 Patient's other noncompliance with medication regimen; Z88.8 Allergy status to other drugs, medicaments and biological substances; Z99.81 Dependence on supplemental oxygen; Z87.891 Personal history of nicotine dependence
CPT/HCPCS: 36415; 36600; 71045; 71045-26; 80048; 82803; 85025; 85027; 94640; 94660; 96374; 99285; 99285-25; A9270-GY; C9113; J0696; J2060; J2930; J7050; J7612-GY; J7620-GY; U0002

== ENCOUNTER 2020-02-11 21:09 | Emergency (ER) | payer MEDICAID ==
--- NOTE | 2020-02-11 21:37 | EDM.PDOC ---
ED HPI GENERAL MEDICAL PROBLEM - General Chief Complaint: Respiratory Problem Stated Complaint: TROUBLE WITH COPD Time Seen by Provider: 02/11/20 21:32 Source of Information: Reports: Patient, Significant Other History Limitations: Reports: Respiratory Distress - History of Present Illness INITIAL COMMENTS - FREE TEXT/NARRATIVE: Marked increase in SOB today. Claims allergy to prednisone but is CURRENTLY on prenisolone. Can't finish simple sentences. Exam room smells like an jono tray. Has had multiple admissions here for same issues. Discharged from here last week with Rx for prednisolone which was just filled today. Onset: Today Duration: Getting Worse Treatments REGISTERED NURSE MATERNITY: Reports: Other (see below) (multiple inhaled meds.) - Related Data Allergies Allergy/AdvReac Type Severity Reaction Status Date / Time amitriptyline Allergy Severe Anaphylactic Verified 02/11/20 21:24 Shock azithromycin [From Zithromax] Allergy Severe Anaphylactic Verified 02/11/20 21:24 Shock buspirone [From BuSpar] Allergy Severe Anaphylactic Verified 02/11/20 21:24 Shock clindamycin Allergy Severe Anaphylactic Verified 02/11/20 21:24 Shock erythromycin lactobionate Allergy Severe Anaphylactic Verified 02/11/20 21:24 [From Erythrocin] Shock levofloxacin [From Levaquin] Allergy Severe Anaphylactic Verified 02/11/20 21:24 Shock Penicillins Allergy Severe Anaphylactic Verified 02/11/20 21:24 Shock prednisone Allergy Severe Anaphylactic Verified 02/11/20 21:24 Shock varenicline Allergy Severe Anaphylactic Verified 02/11/20 21:24 Shock varenicline tartrate Allergy Swelling Verified 02/11/20 21:24 [From Chantix] Home Meds: Home Meds Albuterol [Ventolin HFA] 2 puff INH Q4H PRN 07/01/14 [History] Albuterol/Ipratropium [DuoNeb 3.0-0.5 MG/3 ML] 1 dose INH QID 10/02/14 [History] Budesonide [Pulmicort] 0.5 mg IH BID 12/09/19 [History] Fluticasone Propion/Salmeterol [Fluticasone-Salmeterol 500-50] 1 dose INH BID 12/09/19 [History] Revefenacin [Yupelri] 175 mcg IN DAILY 12/09/19 [History] PARoxetine [Paxil] 10 mg PO DAILY 01/07/20 [History] Formoterol [Perforomist] 1 ampule INH DAILY 02/11/20 [History] Gabapentin [Neurontin] 1 cap PO TID 02/11/20 [History] LORazepam [Lorazepam] 1 tab PO Q4H PRN 02/11/20 [History] prednisoLONE [Prednisolone] 7 ml PO DAILY 02/11/20 [History] Past Medical History Respiratory History: Reports: COPD, Pneumonia, Recurrent, SOB Gastrointestinal History: Reports: Other (See Below) Other Gastrointestinal History: underweight SERVICE AIDE History: Reports: , Spontaneous Musculoskeletal History: Reports: Fracture, Osteoporosis Neurological History: Reports: Seizure Psychiatric History: Reports: Anxiety, Depression, Emotional Problems, Panic Attack, Psych Hospitalization(s), Other (See Below) Other Psychiatric History: conversion disorder Endocrine/Metabolic History: Reports: Vitamin D Deficiency - Infectious Disease History Infectious Disease History: Reports: Chicken Pox - Past Surgical History HEENT Surgical History: Reports: Naso-Sinus Surgery Other HEENT Surgeries/Procedures: broken nose Musculoskeletal Surgical History: Reports: Arthroscopic Knee Dermatological Surgical History: Reports: None Social & Family History - Family History Family Medical History: Unobtainable - Tobacco Use Smoking Status *Q: Former Smoker Used Tobacco, but Quit: Yes Month/Year Tobacco Last Used: december 2019 - Caffeine Use Caffeine Use: Reports: None - Recreational Drug Use Recreational Drug Use: No ED ROS GENERAL - Review of Systems Review Of Systems: See Below Constitutional: Reports: Fatigue. Denies: Fever Respiratory: Reports: Shortness of Breath, Cough Cardiovascular: Denies: Chest Pain Endocrine: Reports: Fatigue GI/Abdominal: Denies: Nausea, Vomiting Skin: Reports: No Symptoms Neurological: Reports: No Symptoms Psychiatric: Reports: Anxiety ED EXAM, GENERAL - Physical Exam Exam: See Below Free Text/Narrative:: Cachectic, disheveled. In pajamas. refuses to lie back on cart even at 45 degrees because that exacerbates SOB Exam Limited By: Respiratory Distress General Appearance: Alert, Anxious, Severe Distress, Thin Ears: Normal External Exam Head: Atraumatic, Normocephalic Neck: Supple, Non-Tender. No: Lymphadenopathy (R), Lymphadenopathy (L) Respiratory/Chest: Respiratory Distress, Decreased Breath Sounds, Accessory Muscle Use, Retractions, Prolonged Expiration, Other (can't finish simple sentences.) Cardiovascular: Regular Rate, Rhythm GI/Abdominal: Soft, No Distention Extremities: Non-Tender, No Pedal Edema Neurological: Alert Psychiatric: Depressed Mood, Flat Affect Skin Exam: Pallor. No: Rash EKG INTERPRETATION EKG Date: 02/11/20 Time: 21:50 Rhythm: NSR Rate (Beats/Min): 96 Cumming: RAD-Right Cumming Deviation P-Wave: Present QRS: Normal Course - Vital Signs Text/Narrative:: @ 2154 I discussed pt. w/Dr. Rios who feels pt. should be evaluated and treated @ facility w/admitting counselor. No real improvement in respiratory status after Neb and solumedrol. Will give pt. low dose sedation and start BiPap. Last Recorded V/S: Last Vital Signs Temp 36.5 C 02/11/20 21:27 Pulse 80 02/11/20 22:16 Resp 22 H 02/11/20 21:27 BP 125/51 L 02/11/20 22:16 Pulse Ox 86 L 02/11/20 22:16 - Orders/Labs/Meds Orders: Active Orders 24 hr Category Date Time Status EKG Documentation Completion [RC] ASDIRECTED Care 02/11/20 21:38 Active RT Aerosol Therapy [RC] ASDIRECTED Care 02/11/20 21:40 Active Chest 2V [CR] Stat Exams 02/11/20 21:37 Taken Sodium Chloride 0.9% [Normal Saline] 1,000 ml Med 02/11/20 21:45 Active IV ASDIRECTED EKG 12 Lead [EK] Urgent Ther 02/11/20 21:37 Ordered Medication Orders Sodium Chloride (Normal Saline) 1,000 mls @ 75 mls/hr IV ASDIRECTED JAQUAN Last Admin: 02/11/20 22:07 Dose: 75 mls/hr Documented by: SHANICE Labs: Laboratory Tests 02/11/20 02/11/20 02/11/20 Range/Units 21:46 21:48 21:50 WBC (4.5-11.0) K/uL RBC (3.30-5.50) M/uL Hgb (12.0-15.0) g/dL Hct (36.0-48.0) % MCV (80-98) fL MCH (27-31) pg MCHC (32-36) % Plt Count (150-400) K/uL PT (9.5-12.0) sec INR (0.80-1.20) Puncture Site Rt radial ABG pH 7.231 L (7.350-7.450) ABG pCO2 121.0 H* (35.0-42.0) mmHg ABG pO2 92.7 (75.0-100.0) mmHg ABG HCO3 49.2 H (22.0-26.0) mmol/L ABG Total CO2 46.2 H (21.0-25.0) mmol/L ABG O2 Saturation 95.8 (95.0-98.0) % ABG O2 Content 16.3 (15.0-23.0) %vol ABG Base Excess 16.8 mm/L ABG Hemoglobin 12.3 (12.0-16.0) g/dL ABG Oxyhemoglobin 93.3 % ABG Carboxyhemoglobin 1.6 (0.0-1.6) % ABG Methemoglobin 1.0 % Henrik Test Pass O2 Delivery Device Nasal cannula Oxygen Flow Rate 2.0 L Sodium (140-148) mmol/L Potassium (3.6-5.2) mmol/L Chloride (100-108) mmol/L Carbon Dioxide (21-32) mmol/L Anion Gap (5.0-14.0) mmol/L BUN (7-18) mg/dL Creatinine (0.6-1.0) mg/dL Est Cr Clr Drug Dosing mL/min Estimated GFR (MDRD) (>60) Glucose (74-106) mg/dL Lactic Acid 0.6 (0.4-2.0) mmol/L Calcium (8.5-10.1) mg/dL Magnesium (1.8-2.4) mg/dL Total Bilirubin (0.2-1.0) mg/dL AST (15-37) U/L ALT (12-78) U/L Alkaline Phosphatase (46-116) U/L Troponin I 0.050 (0.000-0.056) ng/mL NT-Pro-B Natriuret Pep (5-125) pg/mL Total Protein (6.4-8.2) g/dL Albumin (3.4-5.0) g/dL Globulin (2.3-3.5) g/dL Albumin/Globulin Ratio (1.2-2.2) 02/11/20 02/11/20 02/11/20 Range/Units 21:50 21:50 21:50 WBC 5.8 (4.5-11.0) K/uL RBC 4.33 (3.30-5.50) M/uL Hgb 13.0 (12.0-15.0) g/dL Hct 44.4 (36.0-48.0) % MCV 103 H (80-98) fL MCH 30 (27-31) pg MCHC 29 L (32-36) % Plt Count 236 (150-400) K/uL PT 10.8 (9.5-12.0) sec INR 0.99 (0.80-1.20) Puncture Site ABG pH (7.350-7.450) ABG pCO2 (35.0-42.0) mmHg ABG pO2 (75.0-100.0) mmHg ABG HCO3 (22.0-26.0) mmol/L ABG Total CO2 (21.0-25.0) mmol/L ABG O2 Saturation (95.0-98.0) % ABG O2 Content (15.0-23.0) %vol ABG Base Excess mm/L ABG Hemoglobin (12.0-16.0) g/dL ABG Oxyhemoglobin % ABG Carboxyhemoglobin (0.0-1.6) % ABG Methemoglobin % Henrik Test O2 Delivery Device Oxygen Flow Rate L Sodium 144 (140-148) mmol/L Potassium 4.3 (3.6-5.2) mmol/L Chloride 96 L (100-108) mmol/L Carbon Dioxide > 45 H (21-32) mmol/L Anion Gap 7.3 (5.0-14.0) mmol/L BUN 16 (7-18) mg/dL Creatinine 0.5 L (0.6-1.0) mg/dL Est Cr Clr Drug Dosing 65.06 mL/min Estimated GFR (MDRD) > 60 (>60) Glucose 125 H (74-106) mg/dL Lactic Acid (0.4-2.0) mmol/L Calcium 9.3 (8.5-10.1) mg/dL Magnesium (1.8-2.4) mg/dL Total Bilirubin 0.3 (0.2-1.0) mg/dL AST 21 (15-37) U/L ALT 31 (12-78) U/L Alkaline Phosphatase 75 (46-116) U/L Troponin I (0.000-0.056) ng/mL NT-Pro-B Natriuret Pep 50 (5-125) pg/mL Total Protein 7.4 (6.4-8.2) g/dL Albumin 3.8 (3.4-5.0) g/dL Globulin 3.6 H (2.3-3.5) g/dL Albumin/Globulin Ratio 1.1 L (1.2-2.2) 02/11/20 Range/Units 21:50 WBC (4.5-11.0) K/uL RBC (3.30-5.50) M/uL Hgb (12.0-15.0) g/dL Hct (36.0-48.0) % MCV (80-98) fL MCH (27-31) pg MCHC (32-36) % Plt Count (150-400) K/uL PT (9.5-12.0) sec INR (0.80-1.20) Puncture Site ABG pH (7.350-7.450) ABG pCO2 (35.0-42.0) mmHg ABG pO2 (75.0-100.0) mmHg ABG HCO3 (22.0-26.0) mmol/L ABG Total CO2 (21.0-25.0) mmol/L ABG O2 Saturation (95.0-98.0) % ABG O2 Content (15.0-23.0) %vol ABG Base Excess mm/L ABG Hemoglobin (12.0-16.0) g/dL ABG Oxyhemoglobin % ABG Carboxyhemoglobin (0.0-1.6) % ABG Methemoglobin % Henrik Test O2 Delivery Device Oxygen Flow Rate L Sodium (140-148) mmol/L Potassium (3.6-5.2) mmol/L Chloride (100-108) mmol/L Carbon Dioxide (21-32) mmol/L Anion Gap (5.0-14.0) mmol/L BUN (7-18) mg/dL Creatinine (0.6-1.0) mg/dL Est Cr Clr Drug Dosing mL/min Estimated GFR (MDRD) (>60) Glucose (74-106) mg/dL Lactic Acid (0.4-2.0) mmol/L Calcium (8.5-10.1) mg/dL Magnesium 2.0 (1.8-2.4) mg/dL Total Bilirubin (0.2-1.0) mg/dL AST (15-37) U/L ALT (12-78) U/L Alkaline Phosphatase (46-116) U/L Troponin I (0.000-0.056) ng/mL NT-Pro-B Natriuret Pep (5-125) pg/mL Total Protein (6.4-8.2) g/dL Albumin (3.4-5.0) g/dL Globulin (2.3-3.5) g/dL Albumin/Globulin Ratio (1.2-2.2) Meds: Medications Generic Name Dose Route Start Last Admin Trade Name Freq PRN Reason Stop Dose Admin Sodium Chloride 1,000 mls @ 75 mls/hr 02/11/20 21:45 02/11/20 22:07 Normal Saline IV 75 mls/hr ASDIRECTED JAQUAN Administration Discontinued Medications Generic Name Dose Route Start Last Admin Trade Name Freq PRN Reason Stop Dose Admin Albuterol/Ipratropium 3 ml 02/11/20 21:40 02/11/20 22:06 Duoneb 3.0-0.5 Mg/3 Ml NEB 02/11/20 21:41 3 ml ONETIME ONE Administration Methylprednisolone Sodium 100 mls @ 100 mls/hr 02/11/20 21:41 Succinate 1,000 mg/ Dextrose/ IV 02/11/20 22:40 Water ONETIME ONE Methylprednisolone Sodium Succinate 125 mg 02/11/20 22:07 02/11/20 22:12 Solu-Medrol IVPUSH 02/11/20 22:08 125 mg ONETIME ONE Administration Departure - Departure Time of Disposition: 23:02 Disposition: DC/Tfer to [facility] Condition: Serious Clinical Impression: COPD exacerbation - Discharge Information Referrals: PCP,None [Primary Care Provider] - Forms: ED Department Discharge, Interfacility Transfer EMTALA Sepsis Event Note (ED) - Evaluation Sepsis Screening Result: No Definite Risk - Focused Exam Vital Signs: Vital Signs Temp Pulse Resp BP Pulse Ox 02/11/20 22:16 80 125/51 L 86 L 02/11/20 21:46 94 145/69 H 92 L 02/11/20 21:27 36.5 C 98 22 H 145/65 H 96 02/11/20 21:21 36.5 C 98 22 H 145/65 H 96 - My Orders Last 24 Hours: My Active Orders 02/11/20 21:37 Chest 2V [CR] Stat EKG 12 Lead [EK] Urgent 02/11/20 21:38 EKG Documentation Completion [RC] ASDIRECTED 02/11/20 21:40 RT Aerosol Therapy [RC] ASDIRECTED 02/11/20 21:45 Sodium Chloride 0.9% [Normal Saline] 1,000 ml IV ASDIRECTED - Assessment/Plan Last 24 Hours: My Active Orders 02/11/20 21:37 Chest 2V [CR] Stat EKG 12 Lead [EK] Urgent 02/11/20 21:38 EKG Documentation Completion [RC] ASDIRECTED 02/11/20 21:40 RT Aerosol Therapy [RC] ASDIRECTED 02/11/20 21:45 Sodium Chloride 0.9% [Normal Saline] 1,000 ml IV ASDIRECTED
[2020-02-11] MEDS ORDERED: Albuterol/Ipratropium 3.0-0.5 MG/3 ML Neb Soln NEB ONE (21:40)
[2020-02-11] MEDS ORDERED: methylPREDNISolone Sod Succ 1,000 MG in Dextrose 5% in Water 100 ML IV ONE ×2 (21:41)
[2020-02-11] MEDS ORDERED: Sodium Chloride 0.9% 1,000 ML IV SCH (21:45)
[2020-02-11] MEDS ORDERED: methylPREDNISolone Sodium Succinate 125 MG/2 ML SDV IVPUSH ONE (22:07)
[2020-02-11] MEDS ORDERED: Magnesium Sulfate/Water 2 GM in Premix Bag 1 BAG IV ONE (22:51)
[2020-02-11] MEDS ORDERED: LORazepam 2 MG/ML SDV IVPUSH ONE (23:00)
[2020-02-12 00:45] VITALS: BP 120/56; PULSE 88
--- NOTE | 2020-02-12 09:51 | CR ---
CHEST: 2 view CLINICAL HISTORY:SOB COMPARISON:01/22/2020 FINDINGS: Lungs are severely emphysematous. There is some chronic interstitial change. Patchy right lower lobe infiltrate has resolved. There are no effusions. Heart and pulmonary vascularity are normal Impression: Severe emphysematous changes Right lower lobe infiltrate has resolved.
== END 2020-02-12 00:32 | disposition critical access hospital (66) ==
LOC: JP.ED 21:09
DX: J44.1 Chronic obstructive pulmonary disease with (acute) exacerbation (principal); F41.9 Anxiety disorder, unspecified; F32.9 Major depressive disorder, single episode, unspecified; Z88.1 Allergy status to other antibiotic agents; Z88.8 Allergy status to other drugs, medicaments and biological substances; Z88.0 Allergy status to penicillin; Z79.899 Other long term (current) drug therapy; Z87.891 Personal history of nicotine dependence
CPT/HCPCS: 36415; 36600; 71046; 80053; 82803; 83605; 83735; 83880; 84484; 85027; 85610; 93005; 93010; 94640; 96365; 96366; 96375; 99285; J2060; J2930; J3475; J7030; 99283; J7620-GY

== ENCOUNTER 2020-02-19 22:21 | Emergency (ER) | payer MEDICAID ==
[2020-02-19] MEDS ORDERED: LORazepam 1 MG Tab PO ONE (23:04)
--- NOTE | 2020-02-19 23:06 | EDM.PDOC ---
ED HPI GENERAL MEDICAL PROBLEM - General Chief Complaint: Respiratory Problem Stated Complaint: BREATHING TROUBLE Time Seen by Provider: 02/19/20 22:59 Source of Information: Reports: Patient, Old Records, RN Notes Reviewed History Limitations: Reports: No Limitations - History of Present Illness INITIAL COMMENTS - FREE TEXT/NARRATIVE: 59-year-old female presents emergency department with a complaint of anxiety, she was recently evaluated in the emergency department on February 10 COPD exacerbation transferred to [place] for admission discharged from [place] on 4 days prior to ED evaluation today. She states she left her medications in [place] and has not taken anything her biggest concern today is her anxiety she also admits she does not feel well. History of severe end-stage COPD - Related Data Allergies Allergy/AdvReac Type Severity Reaction Status Date / Time amitriptyline Allergy Severe Anaphylactic Verified 02/19/20 22:37 Shock azithromycin [From Zithromax] Allergy Severe Anaphylactic Verified 02/19/20 22:37 Shock buspirone [From BuSpar] Allergy Severe Anaphylactic Verified 02/19/20 22:37 Shock clindamycin Allergy Severe Anaphylactic Verified 02/19/20 22:37 Shock erythromycin lactobionate Allergy Severe Anaphylactic Verified 02/19/20 22:37 [From Erythrocin] Shock levofloxacin [From Levaquin] Allergy Severe Anaphylactic Verified 02/19/20 22:37 Shock Penicillins Allergy Severe Anaphylactic Verified 02/19/20 22:37 Shock prednisone Allergy Severe Anaphylactic Verified 02/19/20 22:37 Shock varenicline Allergy Severe Anaphylactic Verified 02/19/20 22:37 Shock varenicline tartrate Allergy Swelling Verified 02/19/20 22:37 [From Chantix] Home Meds: Home Meds Albuterol [Ventolin HFA] 2 puff INH Q6H PRN 07/01/14 [History] Albuterol/Ipratropium [DuoNeb 3.0-0.5 MG/3 ML] 1 dose INH QID 10/02/14 [History] Budesonide [Pulmicort] 0.5 mg IH BID 12/09/19 [History] Fluticasone Propion/Salmeterol [Fluticasone-Salmeterol 500-50] 1 dose INH BID 12/09/19 [History] Revefenacin [Yupelri] 175 mcg IN DAILY 12/09/19 [History] PARoxetine [Paxil] 5 mg PO DAILY 01/07/20 [History] Formoterol [Perforomist] 1 ampule INH BID 02/11/20 [History] Gabapentin [Neurontin] 1 cap PO TID 02/11/20 [History] LORazepam [Lorazepam] 0.5 tab PO Q4H PRN 02/11/20 [History] predniSONE [Prednisone] 40 mg PO DAILY 02/20/20 [History] Past Medical History Respiratory History: Reports: COPD (End-stage), Pneumonia, Recurrent, SOB Gastrointestinal History: Reports: Other (See Below) Other Gastrointestinal History: underweight LEGAL AID History: Reports: , Spontaneous Musculoskeletal History: Reports: Fracture, Osteoporosis Neurological History: Reports: Seizure Psychiatric History: Reports: Anxiety, Depression, Emotional Problems, Panic Attack, Psych Hospitalization(s), Other (See Below) Other Psychiatric History: conversion disorder Endocrine/Metabolic History: Reports: Vitamin D Deficiency - Infectious Disease History Infectious Disease History: Reports: Chicken Pox - Past Surgical History Head Surgeries/Procedures: Reports: None HEENT Surgical History: Reports: Naso-Sinus Surgery Other HEENT Surgeries/Procedures: broken nose Musculoskeletal Surgical History: Reports: Arthroscopic Knee Dermatological Surgical History: Reports: None Social & Family History - Family History Family Medical History: Unobtainable - Tobacco Use Smoking Status *Q: Former Smoker Used Tobacco, but Quit: Yes Month/Year Tobacco Last Used: . - Caffeine Use Caffeine Use: Reports: None - Recreational Drug Use Recreational Drug Use: No ED ROS GENERAL - Review of Systems Review Of Systems: See Below Constitutional: Reports: No Symptoms Respiratory: Reports: Shortness of Breath, Cough Cardiovascular: Reports: Dyspnea on Exertion Psychiatric: Reports: Anxiety ED EXAM, GENERAL - Physical Exam Exam: See Below Exam Limited By: Physical Impairment (2 and 3 word sentences secondary to severity of COPD) General Appearance: Alert, Mild Distress Respiratory/Chest: Decreased Breath Sounds, Accessory Muscle Use, Prolonged Expiration Cardiovascular: Regular Rate, Rhythm, No Murmur Psychiatric: Anxious Course - Vital Signs Last Recorded V/S: Last Vital Signs Temp 98.5 F 02/19/20 22:44 Pulse 90 02/20/20 03:02 Resp 26 H 02/20/20 03:02 BP 117/58 L 02/20/20 03:02 Pulse Ox 91 L 02/20/20 03:02 - Orders/Labs/Meds Labs: Laboratory Tests 02/20/20 02/20/20 02/20/20 Range/Units 01:37 01:37 01:37 WBC 7.7 (4.5-11.0) K/uL RBC 3.73 (3.30-5.50) M/uL Hgb 11.5 L (12.0-15.0) g/dL Hct 38.7 (36.0-48.0) % MCV 104 H (80-98) fL MCH 31 (27-31) pg MCHC 30 L (32-36) % Plt Count 142 L (150-400) K/uL Puncture Site R brachial ABG pH 7.227 L (7.350-7.450) ABG pCO2 140.0 H* (35.0-42.0) mmHg ABG pO2 71.5 L (75.0-100.0) mmHg ABG HCO3 56.1 H (22.0-26.0) mmol/L ABG Total CO2 53.2 H (21.0-25.0) mmol/L ABG O2 Saturation 91.8 L (95.0-98.0) % ABG O2 Content 14.7 L (15.0-23.0) %vol ABG Base Excess 23.1 mm/L ABG Hemoglobin 11.7 L (12.0-16.0) g/dL ABG Oxyhemoglobin 89.0 % ABG Carboxyhemoglobin 1.9 H (0.0-1.6) % ABG Methemoglobin 1.2 % O2 Delivery Device Nasal cannula Oxygen Flow Rate 2.0 L Sodium 149 H (140-148) mmol/L Potassium 4.1 (3.6-5.2) mmol/L Chloride 100 (100-108) mmol/L Carbon Dioxide > 45 H (21-32) mmol/L Anion Gap 8.1 (5.0-14.0) mmol/L BUN 13 (7-18) mg/dL Creatinine 0.3 L (0.6-1.0) mg/dL Est Cr Clr Drug Dosing 101.21 mL/min Estimated GFR (MDRD) > 60 (>60) Glucose 97 (74-106) mg/dL Calcium 9.6 (8.5-10.1) mg/dL Total Bilirubin 0.3 (0.2-1.0) mg/dL AST 21 (15-37) U/L ALT 32 (12-78) U/L Alkaline Phosphatase 64 (46-116) U/L Troponin I 0.057 H (0.000-0.056) ng/mL Total Protein 6.6 (6.4-8.2) g/dL Albumin 3.5 (3.4-5.0) g/dL Globulin 3.1 (2.3-3.5) g/dL Albumin/Globulin Ratio 1.1 L (1.2-2.2) 02/20/20 Range/Units 04:05 WBC (4.5-11.0) K/uL RBC (3.30-5.50) M/uL Hgb (12.0-15.0) g/dL Hct (36.0-48.0) % MCV (80-98) fL MCH (27-31) pg MCHC (32-36) % Plt Count (150-400) K/uL Puncture Site L brachial ABG pH 7.275 L (7.350-7.450) ABG pCO2 122.0 H* (35.0-42.0) mmHg ABG pO2 58.0 L (75.0-100.0) mmHg ABG HCO3 54.8 H (22.0-26.0) mmol/L ABG Total CO2 51.3 H (21.0-25.0) mmol/L ABG O2 Saturation 87.2 L (95.0-98.0) % ABG O2 Content 14.1 L (15.0-23.0) %vol ABG Base Excess 22.8 mm/L ABG Hemoglobin 11.8 L (12.0-16.0) g/dL ABG Oxyhemoglobin 84.6 % ABG Carboxyhemoglobin 2.0 H (0.0-1.6) % ABG Methemoglobin 1.0 % O2 Delivery Device Bipap Oxygen Flow Rate L Sodium (140-148) mmol/L Potassium (3.6-5.2) mmol/L Chloride (100-108) mmol/L Carbon Dioxide (21-32) mmol/L Anion Gap (5.0-14.0) mmol/L BUN (7-18) mg/dL Creatinine (0.6-1.0) mg/dL Est Cr Clr Drug Dosing mL/min Estimated GFR (MDRD) (>60) Glucose (74-106) mg/dL Calcium (8.5-10.1) mg/dL Total Bilirubin (0.2-1.0) mg/dL AST (15-37) U/L ALT (12-78) U/L Alkaline Phosphatase (46-116) U/L Troponin I (0.000-0.056) ng/mL Total Protein (6.4-8.2) g/dL Albumin (3.4-5.0) g/dL Globulin (2.3-3.5) g/dL Albumin/Globulin Ratio (1.2-2.2) Meds: Medications Discontinued Medications Generic Name Dose Route Start Last Admin Trade Name Freq PRN Reason Stop Dose Admin Lorazepam 1 mg 02/19/20 23:04 02/19/20 23:09 Ativan PO 02/19/20 23:05 1 mg ONETIME ONE Administration - Re-Assessments/Exams Free Text/Narrative Re-Assessment/Exam: 02/20/20 01:26 had been running O2 at approximately 5 L/min because she kept complaining of shortness of breath. She was given 1 mg Ativan oxygen was reduced to 1 L/min maintaining saturation however she then was extremely difficult to awake suspicious for elevated CO2 therefore further work-up was initiated 02/20/20 04:47 After a little over an hour on BiPAP she was then arousable I was able to communicate with her by using the word board states she wants to go back to [place]. Her pH did improve slightly but the PCO2 went from 140 down to 120 BiPAP settings were 35% FiO2 respiration rate 10 with pressures of 18 over 8 Departure - Departure Time of Disposition: 04:51 Disposition: DC/Tfer to Acute Hospital 02 Condition: Critical Clinical Impression: Hypercapnic respiratory failure Qualifiers: Chronicity: acute on chronic Qualified Code(s): J96.22 - Acute and chronic respiratory failure with hypercapnia - Discharge Information Referrals: Dedra Venegas MD [Primary Care Provider] - Forms: ED Department Discharge Sepsis Event Note (ED) - Evaluation Sepsis Screening Result: No Definite Risk - Focused Exam Vital Signs: Vital Signs Temp Pulse Resp BP Pulse Ox 02/20/20 03:02 90 26 H 117/58 L 91 L 08/12/20 02:02 78 26 H 110/59 L 96 02/20/20 01:33 80 26 H 121/55 L 99 02/20/20 01:03 85 19 89/36 L 98 02/20/20 00:03 80 11 L 141/66 H 92 L 02/19/20 23:32 76 32 H 122/62 95 02/19/20 23:03 76 32 H 127/40 L 95 02/19/20 22:44 98.5 F 90 128/62 95 02/19/20 22:38 98.5 F 90 33 H 128/62 95 - Assessment/Plan Plan: Assessment Acuity = acute Site and laterality = on chronic hypoxic hypercapnic respiratory failure now on BiPAP Etiology = end-stage COPD in combination with medical compliance Manifestations = severe dyspnea Location of injury = Home Lab values = BC unremarkable, first ABG reveals pH 7.277 PCO2 of 140 and a bicarb of 1:56 hour BiPAP pH is 7.275 PCO2 122 and a bicarb of 34.8, CMP unremarkable Plan Called and discussed the case case Dr. Jacobo critical care physician [facility] at 430 he kindly agreed to accept the patient in transport she will be transported via EMS ground on BiPAP This note was dictated using [employer] voice recognition software please call with any questions on syntax or grammar.
[2020-02-20 05:06] VITALS: BP 129/78; PULSE 100
[2020-02-20] MEDS ORDERED: LORazepam 2 MG/ML SDV IVPUSH ONE (05:27)
== END 2020-02-20 05:55 ==
LOC: JP.ED 22:21
DX: J96.22 Acute and chronic respiratory failure with hypercapnia (principal); F41.0 Panic disorder [episodic paroxysmal anxiety]; F32.9 Major depressive disorder, single episode, unspecified; J44.9 Chronic obstructive pulmonary disease, unspecified; Z87.891 Personal history of nicotine dependence; Z88.0 Allergy status to penicillin; Z88.1 Allergy status to other antibiotic agents; Z88.8 Allergy status to other drugs, medicaments and biological substances; Z79.899 Other long term (current) drug therapy
CPT/HCPCS: 36600; 80053; 82803; 84484; 85027; 96374; 99285; A9270; J2060